=== PATIENT | female | born 1955 | race Caucasian/White ===

== ENCOUNTER 2016-07-30 13:54 | Outpatient (RCR) | payer BC ==
--- OUTSIDE RECORDS SUMMARY | 2016-06-27 11:06 | XMS REPORT | Continuity of Care Document ---
Author Author [facility] Organization [facility] Address Unknown Phone Unavailable Care Team Providers Care Yarder Puncher Name Role Phone Alexandra Macdonald PCP [phone] Source Comments Some departments are not documenting in the electronic medical record. If you do not see the information that you expected, contact Release of Information in the Health Information Management department at [phone] for further assistance in locating additional records.[facility] Active Allergies and Adverse Reactions No Known Allergies Current Medications Prescription Sig. Disp. Refills Start End Date Status Date Levocetirizine (XYZAL) 5 Take 5 mg by mouth at Active mg tab bedtime daily. simvastatin (ZOCOR) 20 mg Take 20 mg by mouth at Active tablet bedtime daily. HYDROcodone/acetaminophen Take 1-2 Tabs by mouth 40 Tab 0 03/28/20 Active (NORCO) 5-325 mg tablet every 4 hours as needed 16 for Pain Active Problems Problem Noted Date Ductal carcinoma in situ (DCIS) of left breast 02/09/2016 Overview: DIAGNOSIS: Left grade 3 DCIS (ER95%, PR60%) at 4:00, dx 01/2016 HISTORY: Ms. Hdez is a female who presented to [facility] on 02/12/2016 at age 60 for evaluation of left breast cancer. She had no complaints prior to her screening mammogram. Left stereotactic biopsy 02/01/16 ([facility]) revealed grade 3 ductal carcinoma in situ. Ms. Hdez underwent left RSL lumpectomy on 03/28/16. Final pathology revealed grade 3 DCIS; all margins greater than 1.5 cm. BREAST IMAGING: Mammogram: -- Bilateral screening mammogram 07/18/15 ([facility]) revealed heterogeneously dense breast tissue. In the far lateral aspect of the left breast, 10 cm FTN there was a group of pleomorphic calcifications. Left diagnostic mammogram recommended. -- Left diagnostic mammogram 07/31/15 ([facility]) revealed a slightly heterogeneous cluster of calcifications. 6 month follow up mammogram was recommended. -- Left diagnostic mammogram 01/29/16 ([facility]) revealed the calcifications in the posterior left breast had slightly increased. Stereotactic biopsy was recommended. -- Bilateral diagnostic mammogram 02/12/16 ([facility]) revealed 2 areas of residual calcifications anterior to the known area of DCIS. One group was seen 2.4 cm lateral and slightly anterior to the biopsy clip. The second group of calcification was also seen 3.2 cm anteromedially from the biopsy clip. The total extent of the groups of microcalcifications on the prebiopsy images was approximately 4.1 cm transverse x 2.0 cm AP. These additional areas of calcification were suspicious for residual malignancy. An MRI was recommended to evaluate for extent of disease, including contiguous noncalcified DCIS. If present, additional biopsy may not be necessary. If MRI was not performed, or did not show contiguous disease, then a stereotactic biopsy of one of these additional areas of calcifications was recommended to evaluate for multifocal disease. Ultrasound: -- Targeted left breast ultrasound 02/12/16 ([facility]) revealed at 3:30-4:00, 8 cm FTN, revealed a post biopsy hematoma/seroma measuring approximately 4.6 x 0.6 x 2.7 cm. A clip was seen within this collection. No suspicious masses were apparent. Axilla showed no adenopathy. REPRODUCTIVE HEALTH: Age at first Menarche: 15 Age at First Live : 28 Age at Menopause: 54, no HRT : 3 Para: 3 : None PROCEDURE: Left RSL lumpectomy, 03/28/16 PERTINENT PMH: HLD FAMILY HISTORY: No family history of breast or ovarian cancer PHYSICAL EXAM on PRESENTATION: Right - No palpable breast masses. No skin, nipple, or areolar change. Left - Large hematoma at 4:00 with bruising. No supraclavicular or axillary adenopathy. MEDICAL ONCOLOGY: Dr. Walker REFERRED BY: Self Most Recent Encounters Date Type Specialty Providers Description 04/03/2016 Office Visit Oncology Rosa Dumont DO Ductal carcinoma in situ (DCIS) of left breast (Primary Dx) 04/03/2016 Telephone Oncology Rosa Dumont DO Referral 03/28/2016 [facility] Radiology Rosa Dumont DO Encounter 03/28/2016 Surgery Anesthesiology Rosa Dumont DO Left Bracketed Radioactive Seed Localized Lumpectomy 03/27/2016 [facility] Radiology Rosa Dumont DO Encounter 03/27/2016 Anesthesia Anesthesiology Daryl Hickey MD Event Immunizations Name Dates Previously Given Next Due Flu Vaccine=>3 YO 06/22/2015 (Historical) Social History Tobacco Use Types Packs/Day Years Used Date Never Smoker Smokeless Tobacco: Never Used Alcohol Use Drinks/Week oz/Week Comments No Last Filed Vital Signs Vital Sign Reading Time Taken Blood Pressure 114/69 04/03/2016 12:53 PM CDT Pulse 64 04/03/2016 12:53 PM CDT Temperature 36.8 C (98.2 F) 04/03/2016 12:53 PM CDT Respiratory Rate 16 04/03/2016 12:53 PM CDT Height 1.702 m (5' 7.01") 04/03/2016 12:53 PM CDT Weight 64.411 kg (142 lb) 04/03/2016 12:53 PM CDT Body Mass Index 22.24 04/03/2016 12:53 PM CDT Oxygen Saturation 99% 04/03/2016 12:53 PM CDT Plan of Care Date Type Specialty Providers Description 10/14/2016 Appointment Radiology Rosa Dumont DO [address] [place] [address] [phone] (Fax) 10/14/2016 Appointment Breast Clinic / Breast Rosa Dumont DO Center [address] [place] [address] [phone] (Fax) Health Maintenance Due Date Last Done Comments Hepatitis C Screening 1955 Physical (Comprehensive) 1964 Exam Pertussis Vaccine 1968 Tetanus Vaccine 1974 Cervical Cancer Screening 1978 Colorectal Cancer 2007 Screening Influenza Vaccine 05/23/2016 06/22/2015 Breast Cancer Screening 02/11/2018 02/12/2016 Procedures from Last 3 Months Procedure Name Priority Date/Time Associated Diagnosis Comments PROCEDURES-SCAN 04/09/2016 Results for this 12:45 PM CDT procedure are in the results section. PROCEDURES-SCAN 03/29/2016 Results for this 9:01 AM CDT procedure are in the results section. Left Bracketed 03/28/2016 Ductal carcinoma in situ Radioactive Seed 7:30 AM CDT of left breast Localized Lumpectomy Results from Last 3 Months PROCEDURES-SCAN (04/09/2016 12:45 PM) Narrative Ordered by an unspecified provider. TUMOR PROGNOSTIC MARKERS SCAN (04/05/2016 4:19 PM) Narrative Ordered by an unspecified provider. PROCEDURES-SCAN (03/29/2016 9:01 AM) Narrative Ordered by an unspecified provider. BREAST SPEC PATH ONLY/NO RAD READ (03/28/2016 9:00 AM) Narrative This order has been auto finalized and does not contain a result. SURGICAL PATHOLOGY (03/28/2016 7:57 AM) Component Value Range PATHOLOGY REPORT [facility] [email or web address] Reji Wilkinson MD, PhD, Director Anatomic Pathology Department of Pathology and Laboratory Medicine [address] [place] [id number] Surgical Pathology Office: [phone] SURGICAL PATHOLOGY REPORT NAME: ANITHA HDEZ SURG PATH #: [id number] MR #: [id number] SPECIMEN CLASS: SR BILLING #: [id number] ALT ID #: LOCATION: [facility] DATE OF PROCEDURE: 03/28/2016 AGE: 60 SEX: F DATE RECEIVED: 03/28/2016 : 1955 TIME RECEIVED: 07:57 PHYSICIAN: ROSA DUMONT DO DATE OF REPORT: 04/01/2016 COPY TO: DATE OF PRINTIN04/01/2016 ################################################## ###################### Final Diagnosis: A. Breast tissue, "left breast lumpectomy, short stitch superior, long stitch lateral", excisional biopsy: Multifocal ductal carcinoma in situ, intermediate and high grade, cribriform, solid, micropapillary and Comedo types. Changes consistent with previous biopsy site. See comment. B. Breast tissue, "left breast additional lateral margin, clips dorian the true margin", biopsy: No diagnostic abnormalities. There is no evidence of malignancy. C. Breast tissue, "left breast additional superior margin, clips dorian the true margin", biopsy: No diagnostic abnormalities. There is no evidence of malignancy. D. Breast tissue, "left breast additional medial margin, clips dorian the true margin", biopsy: No diagnostic abnormalities. There is no evidence of malignancy. E. Breast tissue, " left breast additional inferior margin, clips dorian the true margin", biopsy: No diagnostic abnormalities. There is no evidence of malignancy. F. Breast tissue, "left breast additional posterior margin, clips dorian the true margin", biopsy: No diagnostic abnormalities. There is no evidence of malignancy. G. Breast tissue, "left breast additional anterior margin, clips dorian the true margin", biopsy: No diagnostic abnormalities. There is no evidence of malignancy. Comment: DCIS OF THE BREAST Breast: Left Tumor location: 3:30 position per radiology report Indication for surgery: Biopsy proven DCIS Type of surgery: Lumpectomy Microcalcifications identified: Yes Tumor multifocality: Yes Tumor multicentricity: No Tumor size or extent: Several foci, the largest of which measures approximately 1.2 cm in largest diameter Histologic pattern: Cribriform, solid, micropapillary and Comedo types Nuclear grade: 3 Necrosis: Present Margin status (main specimen): Please indicate the distance Although the tumor is within 1mm from the resection margins of the main lumpectomy specimens, ALL final resection margins are free of DCIS with more than 1.5 cm clearance Lymph node status: N/A Prognostic markers ordered: Yes. See Tumor Prognostic Marker addendum in Results Review. Time between tumor removal and placement into formalin < 1 hour: Yes Fixation time between 6-72 hours: Yes Pathologic TNM: pTis Nx M(N/A) TNM Descriptors Primary Tumor (Invasive Carcinoma) (pT) pTis (DCIS): Ductal carcinoma in situ Regional Lymph Nodes (pN) pNX: Regional lymph nodes cannot be assessed (eg, previously removed, or not removed for pathologic study) Distant Metastasis (M) Not applicable The pathologic stage assigned here should be regarded as provisional, as it reflects only current pathologic data and does not incorporate full knowledge of the patient's clinical status and/or prior pathology. Attestation: By this signature, I attest that I have personally formulated the final interpretation expressed in this report and that the above diagnosis is based upon my examination of the slides and/or other material indicated in this report. +++Electronically Signed Out By+++ ksw/03/28/2016 Interpreted by: Reji Wilkinson MD PhD, Attending Physician 04/01/2016 ################################################## ###################### Material Received: A: left breast lumpectomy, short stitch superior, long stitch lateral B: left breast additional lateral margin, clips dorian the true margin C: left breast additional superior margin, clips dorian the true margin D: left breast additional medial margin, clips dorian the true margin E: left breast additional inferior margin, clips dorian the true margin F: left breast additional posterior margin, clips dorian the true margin G: left breast additional anterior margin, clips dorian the true margin History: 60-year-old female with a history of DCIS. Gross Description: A. Fixative: Fresh Labeled: "Left breast lumpectomy short stitch superior long stitch lateral" Measurement: 7.5 x 4.2 x 2.1 cm The specimen is inked as follows: Inferior - Blue Anterior - Green Posterior - Black Lateral - [place] Medial - Yellow Superior - Red Sectioned from: Medial to lateral Total number of slices: Fourteen Radioactive Seed: Yes, in slice #2 Metallic Clip: Yes Mass measurement: There is a necrotic mass measuring 1.7 x 1.5 x 0.8 cm Mass location: Slices #11 and #12 The mass is: 1.5 cm from the deep margin 1.2 cm from the anterior margin 1.2 cm from the lateral margin 6.0 cm from the medial margin 1.0 cm from the superior margin 1.0 cm from the inferior margin Uninvolved breast parenchyma: Yellow and fatty Specimen radiograph taken: Yes Specimen sent to the Biospecimen Repository Core Facility: No The entire specimen is submitted as follows: A1 Slice #1 (perpendicular medial margin). A2 Slice #2. A3 Slice #3. A4-A5 Slice #4. A6-A7 Slice #5. A8-A9 Slice #6. A10-11 Slice #7. A12-14 Slice #8. A15-A17 Slice #9. A18-A20 Slice #10. A21-A22 Slice #11. A23-A24 Slice #12. A25 Slice #13. A26 Slice #14 (perpendicular lateral margin). The breast is removed from the patient at 7:52 AM, placed in formalin at 8:52 AM and not removed from formalin until 8:15 PM on March 28, 2016. (brm) B. Received in formalin, labeled with the patient's name and "left breast additional lateral margin, clip carroll true margin" is an irregular, oriented, schuster-yellow portion of fibroadipose tissue measuring 7.9 x 7.5 x 1.2. The specimen is oriented with a metallic clip designating the true margin. The clip is removed and the true margin is inked black. The opposite side is inked blue. The specimen is serially sectioned to reveal a schuster-yellow lobular cut surface. The specimen is submitted entirely in cassettes B1-B21. (brm) C. Received in formalin, labeled with the patient's name and "left breast additional superior margin, clip carroll true margin" is an irregular, oriented, schuster-yellow portion of fibroadipose tissue measuring 2.5 x 2.5 x 1.2. The specimen is oriented with a metallic clip designating the true margin. The clip is removed and the true margin is inked black. The opposite side is inked blue. The specimen is serially sectioned to reveal a schuster-yellow lobular cut surface. The specimen is submitted entirely in cassettes C1-C4. (brm) D. Received in formalin, labeled with the patient's name and "left breast additional medial margin, clip carroll true margin" is an irregular, oriented, schuster-yellow portion of fibroadipose tissue measuring 4.5 x 2.1 x 1.2. The specimen is oriented with a metallic clip designating the true margin. The clip is removed and the true margin is inked black. The opposite side is inked blue. The specimen is serially sectioned to reveal a schuster-yellow lobular cut surface. The specimen is submitted entirely in cassettes D1-D4. (brm) E. Received in formalin, labeled with the patient's name and "left breast additional inferior margin, clip carroll true margin" is an irregular, oriented, schuster-yellow portion of fibroadipose tissue measuring 5.1 x 3.2 x 1.2. The specimen is oriented with a metallic clip designating the true margin. The clip is removed and the true margin is inked black. The opposite side is inked blue. The specimen is serially sectioned to reveal a schuster-yellow lobular cut surface. The specimen is submitted entirely in cassettes E1-E7. (br) F. Received in formalin, labeled with the patient's name and "left breast additional posterior margin, clip carroll true margin" is an irregular, oriented, schuster-yellow portion of fibroadipose tissue measuring 3.1 x 1.5 x 1.2. The specimen is oriented with a metallic clip designating the true margin. The clip is removed and the true margin is inked black. The opposite side is inked blue. The specimen is serially sectioned to reveal a schuster-yellow lobular cut surface. The specimen is submitted entirely in cassettes F1-F3. (br) G. Received in formalin, labeled with the patient's name and "left breast additional anterior margin, clip carroll true margin" is an irregular, oriented, schuster-yellow portion of fibroadipose tissue measuring 4.1 x 4.0 x 1.5. The specimen is oriented with a metallic clip designating the true margin. The clip is removed and the true margin is inked black. The opposite side is inked blue. The specimen is serially sectioned to reveal a schuster-yellow lobular cut surface. The specimen is submitted entirely in cassettes G1-G6. (br) ksw/03/28/2016 MAMMO GUIDE SEED LOC 1ST LT (03/27/2016 4:21 PM) Impressions RECOMMENDATION: Follow-up with your physician. Narrative [id number] MAMMO GUIDE SEED LOC 1ST LT: LEFT BREAST - MARCH 27, 2016 - Technologists: Dom Latif; Lennox Diaz Prior study comparison: February 15, 2016, bilateral [id number] MRI BREAST BILAT w/O W CONTRAST performed at [facility] In.February 12, 2016, bilateral [id number] MAMMO DIAGNOSTIC KUN/TIEN performed at [facility] [place]. 60-year-old female with known left breast malignancy. Bracketed radioactive seed localization was requested. Of note, the patient had a large hematoma at the biopsy site on prior postprocedure mammograms and breast MRI. Calcifications and abnormal enhancement were seen at the margins of the biopsy cavity. The hematoma has largely resolved and therefore prior breast MRI and prior mammograms were utilized to approximate appropriate radioactive seed bracketing position. Technique: The procedure was performed by Dr. Keaton Kumar with direct supervision by myself. Informed consent was obtained. Using sterile procedure, local anesthetic, and mammographic guidance, an 18 gauge, 7cm needle containing a 0.212 mCi I-125 radioactive seed (reference date: 01/31/2016) was introduced into the breast from a lateral approach and the seed was deployed at the anterior, inferior, medial margin. Using sterile procedure, local anesthetic, and mammographic guidance, an 18 gauge, 5cm needle containing a 0.206 mCi I-125 radioactive seed (reference date: 03/06/2016) was introduced into the breast from a lateral approach and the seed was deployed at the posterior, superior, lateral margin. There were no complications. Lateral and CC views demonstrate a radioactive seed marking the anterior, inferior, medial margin and a second seed marking the posterior, superior, lateral margin. Impression: Number of seeds: 2 (bracketed) Anterior, inferior, medial seed: Reference date 01/31/2016, total activity 0.212 mCi Posterior, superior, lateral seed: Reference date 03/06/2016, total activity 0.206 mCi Finalized by Cade Zelaya M.D. on 03/27/2016 4:38 PM. Dictated by Cade Zelaya M.D. on 03/27/2016 4:29 PM. PATHOLOGY RESULTS: MALIGNANT Pathologist: Reji Wilkinson at [facility] Breast Imaging Malignant ductal carcinoma in situ. Final Diagnosis: A. Breast tissue, "left breast lumpectomy, short stitch superior, long stitch lateral", excisional biopsy: Multifocal ductal carcinoma in situ, intermediate and high grade, cribriform, solid, micropapillary and Comedo types. Changes consistent with previous biopsy site. See comment. B. Breast tissue, "left breast additional lateral margin, clips dorian the true margin", biopsy: No diagnostic abnormalities. There is no evidence of malignancy. C. Breast tissue, "left breast additional superior margin, clips dorian the true margin", biopsy: No diagnostic abnormalities. There is no evidence of malignancy. D. Breast tissue, "left breast additional medial margin, clips dorian the true margin", biopsy: No diagnostic abnormalities. There is no evidence of malignancy. E. Breast tissue, " left breast additional inferior margin, clips dorian the true margin", biopsy: No diagnostic abnormalities. There is no evidence of malignancy. F. Breast tissue, "left breast additional posterior margin, clips dorian the true margin", biopsy: No diagnostic abnormalities. There is no evidence of malignancy. G. Breast tissue, "left breast additional anterior margin, clips dorian the true margin", biopsy: No diagnostic abnormalities. There is no evidence of malignancy. Comment: DCIS OF THE BREAST Breast: Left Tumor location: 3:30 position per radiology report Indication for surgery: Biopsy proven DCIS Type of surgery: Lumpectomy Microcalcifications identified: Yes Tumor multifocality: Yes Tumor multicentricity: No Tumor size or extent: Several foci, the largest of which measures approximately 1.2 cm in largest diameter Histologic pattern: Cribriform, solid, micropapillary and Comedo types Nuclear grade: 3 Necrosis: Present Margin status (main specimen): Please indicate the distance Although the tumor is within 1mm from the resection margins of the main lumpectomy specimens, ALL final resection margins are free of DCIS with more than 1.5 cm clearance Lymph node status: N/A Prognostic markers ordered: Yes. See Tumor Prognostic Marker addendum in Results Review. Time between tumor removal and placement into formalin < 1 hour: Yes Fixation time between 6-72 hours: Yes Pathologic TNM: pTis Nx M(N/A) TNM Descriptors Primary Tumor (Invasive Carcinoma) (pT) pTis (DCIS): Ductal carcinoma in situ Regional Lymph Nodes (pN) pNX: Regional lymph nodes cannot be assessed (eg, previously removed, or not removed for pathologic study) Distant Metastasis (M) Not applicable The pathologic stage assigned here should be regarded as provisional, as it reflects only current pathologic data and does not incorporate full knowledge of the patient's clinical status and/or prior pathology. Attestation: By this signature, I attest that I have personally formulated the final interpretation expressed in this report and that the above diagnosis is based upon my examination of the slides and/or other material indicated in this report. +++Electronically Signed Out By+++ wilfredow/03/28/2016 Interpreted by: Reji Wilkinson MD PhD, Attending Physician 04/01/2016 Electronically signed and approved by: Cade Zelaya M.D. [id number] Procedure Note Interface, Radiant Results - FriApr 03, 2016 1:48 PM CDT [id number] MAMMO GUIDE SEED LOC 1ST LT: LEFT BREAST - MARCH 27, 2016 - Technologists: Dom Latif; Lennox Diaz Prior study comparison: February 15, 2016, bilateral [id number] MRI BREAST BILAT w/O W CONTRAST performed at [facility] In. February 12, 2016, bilateral [id number] MAMMO DIAGNOSTIC KUN/TIEN performed at [facility] [place]. 60-year-old female with known left breast malignancy. Bracketed radioactive seed localization was requested. Of note, the patient had a large hematoma at the biopsy site on prior postprocedure mammograms and breast MRI. Calcifications and abnormal enhancement were seen at the margins of the biopsy cavity. The hematoma has largely resolved and therefore prior breast MRI and prior mammograms were utilized to approximate appropriate radioactive seed bracketing position. Technique: The procedure was performed by Dr. Keaton Kumar with direct supervision by myself. Informed consent was obtained. Using sterile procedure, local anesthetic, and mammographic guidance, an 18 gauge, 7cm needle containing a 0.212 mCi I-125 radioactive seed (reference date: 01/31/2016) was introduced into the breast from a lateral approach and the seed was deployed at the anterior, inferior, medial margin. Using sterile procedure, local anesthetic, and mammographic guidance, an 18 gauge, 5cm needle containing a 0.206 mCi I-125 radioactive seed (reference date: 03/06/2016) was introduced into the breast from a lateral approach and the seed was deployed at the posterior, superior, lateral margin. There were no complications. Lateral and CC views demonstrate a radioactive seed marking the anterior, inferior, medial margin and a second seed marking the posterior, superior, lateral margin. Impression: Number of seeds: 2 (bracketed) Anterior, inferior, medial seed: Reference date 01/31/2016, total activity 0.212 mCi Posterior, superior, lateral seed: Reference date 03/06/2016, total activity 0.206 mCi Finalized by Cade Zelaya M.D. on 03/27/2016 4:38 PM. Dictated by Cade Zelaya M.D. on 03/27/2016 4:29 PM. PATHOLOGY RESULTS: MALIGNANT Pathologist: Reji Wilkinson at [facility] Breast Imaging Malignant ductal carcinoma in situ. Final Diagnosis: A. Breast tissue, "left breast lumpectomy, short stitch superior, long stitch lateral", excisional biopsy: Multifocal ductal carcinoma in situ, intermediate and high grade, cribriform, solid, micropapillary and Comedo types. Changes consistent with previous biopsy site. See comment. B. Breast tissue, "left breast additional lateral margin, clips dorian the true margin", biopsy: No diagnostic abnormalities. There is no evidence of malignancy. C. Breast tissue, "left breast additional superior margin, clips dorian the true margin", biopsy: No diagnostic abnormalities. There is no evidence of malignancy. D. Breast tissue, "left breast additional medial margin, clips dorian the true margin", biopsy: No diagnostic abnormalities. There is no evidence of malignancy. E. Breast tissue, " left breast additional inferior margin, clips dorian the true margin", biopsy: No diagnostic abnormalities. There is no evidence of malignancy. F. Breast tissue, "left breast additional posterior margin, clips dorian the true margin", biopsy: No diagnostic abnormalities. There is no evidence of malignancy. G. Breast tissue, "left breast additional anterior margin, clips dorian the true margin", biopsy: No diagnostic abnormalities. There is no evidence of malignancy. Comment: DCIS OF THE BREAST Breast: Left Tumor location: 3:30 position per radiology report Indication for surgery: Biopsy proven DCIS Type of surgery: Lumpectomy Microcalcifications identified: Yes Tumor multifocality: Yes Tumor multicentricity: No Tumor size or extent: Several foci, the largest of which measures approximately 1.2 cm in largest diameter Histologic pattern: Cribriform, solid, micropapillary and Comedo types Nuclear grade: 3 Necrosis: Present Margin status (main specimen): Please indicate the distance Although the tumor is within 1mm from the resection margins of the main lumpectomy specimens, ALL final resection margins are free of DCIS with more than 1.5 cm clearance Lymph node status: N/A Prognostic markers ordered: Yes. See Tumor Prognostic Marker addendum in Results Review. Time between tumor removal and placement into formalin < 1 hour: Yes Fixation time between 6-72 hours: Yes Pathologic TNM: pTis Nx M(N/A) TNM Descriptors Primary Tumor (Invasive Carcinoma) (pT) pTis (DCIS): Ductal carcinoma in situ Regional Lymph Nodes (pN) pNX: Regional lymph nodes cannot be assessed (eg, previously removed, or not removed for pathologic study) Distant Metastasis (M) Not applicable The pathologic stage assigned here should be regarded as provisional, as it reflects only current pathologic data and does not incorporate full knowledge of the patient's clinical status and/or prior pathology. Attestation: By this signature, I attest that I have personally formulated the final interpretation expressed in this report and that the above diagnosis is based upon my examination of the slides and/or other material indicated in this report. +++Electronically Signed Out By+++ ksw/03/28/2016 Interpreted by: Reji Wilkinson MD PhD, Attending Physician 04/01/2016 Electronically signed and approved by: Cade Zelaya M.D. [id number] IMPRESSION RECOMMENDATION: Follow-up with your physician.
[2016-07-30 14:11] LABS: BASOPHILS % (AUTO) 0 % (0-10); EOSINOPHILS # (AUTO) 0.1 10^3/uL (0.0-0.3); EOSINOPHILS % (AUTO) 1 % (0-10); LYMPHOCYTES # (AUTO) 1.3 X 10^3 (1.0-4.0); LYMPHOCYTES % (AUTO) 24 % (12-44); MEAN CORPUSCULAR HEMOGLOBIN 30 PG (25-34); MEAN CORPUSCULAR HGB CONC 33 G/DL (32-36); MEAN CORPUSCULAR VOLUME 90 FL (80-99); MEAN PLATELET VOLUME 11.3 FL (7.4-10.4); MONOCYTES # (AUTO) 0.5 X 10^3 (0.0-1.0); MONOCYTES % (AUTO) 9 % (0-12); NEUTROPHILS # (AUTO) 3.4 X 10^3 (1.8-7.8); NEUTROPHILS % (AUTO) 65 % (42-75); PLATELET COUNT 199 10^3/uL (130-400); RED BLOOD COUNT 4.49 10^6/uL (4.35-5.85); RED CELL DISTRIBUTION WIDTH 13.5 % (10.0-14.5); WHITE BLOOD COUNT 5.2 10^3/uL (4.3-11.0)
[2016-07-30 15:00] LABS: ALANINE AMINOTRANSFERASE 20 U/L (0-55); ALBUMIN 4.3 G/DL (3.2-4.5); ANION GAP 11 MMOL/L (5-14); ASPARTATE AMINO TRANSFERASE 18 U/L (5-34); BILIRUBIN,TOTAL 0.5 MG/DL (0.1-1.0); BLOOD UREA NITROGEN 14 MG/DL (7-18); BUN/CREATININE RATIO 20; CALCIUM 9.9 MG/DL (8.5-10.1); CARBON DIOXIDE 24 MMOL/L (21-32); CHLORIDE 107 MMOL/L (98-107); GFR ESTIMATED > 60; GLUCOSE 86 MG/DL (70-105); POTASSIUM 4.3 MMOL/L (3.6-5.0); SODIUM 142 MMOL/L (135-145); TOTAL PROTEIN 6.9 G/DL (6.4-8.2)
== END 2016-09-25 | disposition home or self-care (01) ==
LOC: ONC 13:54
PROVIDERS: ATTEND Internal Medicine Hematology & Oncology
DX: D05.12 Intraductal carcinoma in situ of left breast (principal); E78.5 Hyperlipidemia, unspecified; K21.9 Gastro-esophageal reflux disease without esophagitis; Z79.810 Long term (current) use of selective estrogen receptor modulators (SERMs); Z79.899 Other long term (current) drug therapy
CPT/HCPCS: 36415; 80053; 85025; 99213; 99214

== ENCOUNTER 2017-01-23 12:44 | Outpatient (RCR) | payer BC ==
[2017-01-23 13:08] LABS: BASOPHILS % (AUTO) 1 % (0-10); EOSINOPHILS # (AUTO) 0.1 10^3/uL (0.0-0.3); EOSINOPHILS % (AUTO) 2 % (0-10); LYMPHOCYTES # (AUTO) 1.6 X 10^3 (1.0-4.0); LYMPHOCYTES % (AUTO) 27 % (12-44); MEAN CORPUSCULAR HEMOGLOBIN 30 PG (25-34); MEAN CORPUSCULAR HGB CONC 33 G/DL (32-36); MEAN CORPUSCULAR VOLUME 92 FL (80-99); MONOCYTES # (AUTO) 0.6 X 10^3 (0.0-1.0); MONOCYTES % (AUTO) 10 % (0-12); NEUTROPHILS # (AUTO) 3.6 X 10^3 (1.8-7.8); NEUTROPHILS % (AUTO) 60 % (42-75); PLATELET COUNT 208 10^3/uL (130-400); RED BLOOD COUNT 4.25 10^6/uL (4.35-5.85); RED CELL DISTRIBUTION WIDTH 13.6 % (10.0-14.5)
[2017-01-23 13:47] LABS: ALANINE AMINOTRANSFERASE 17 U/L (0-55); ALBUMIN 4.1 G/DL (3.2-4.5); ANION GAP 5 MMOL/L (5-14); ASPARTATE AMINO TRANSFERASE 19 U/L (5-34); BILIRUBIN,TOTAL 0.4 MG/DL (0.1-1.0); BLOOD UREA NITROGEN 16 MG/DL (7-18); BUN/CREATININE RATIO 22; CALCIUM 10.4 MG/DL (8.5-10.1); CARBON DIOXIDE 30 MMOL/L (21-32); CHLORIDE 106 MMOL/L (98-107); CREATININE SERUM 0.72 MG/DL (0.60-1.30); GFR ESTIMATED > 60; GLUCOSE 79 MG/DL (70-105); POTASSIUM 4.6 MMOL/L (3.6-5.0); SODIUM 141 MMOL/L (135-145); TOTAL PROTEIN 6.7 G/DL (6.4-8.2)
== END 2017-04-23 | disposition home or self-care (01) ==
LOC: ONC 12:44
PROVIDERS: ATTEND Internal Medicine Hematology & Oncology
DX: D05.12 Intraductal carcinoma in situ of left breast (principal); E78.5 Hyperlipidemia, unspecified; K21.9 Gastro-esophageal reflux disease without esophagitis; Z79.810 Long term (current) use of selective estrogen receptor modulators (SERMs); Z79.899 Other long term (current) drug therapy
CPT/HCPCS: 36415; 80053; 85025; 99213

== ENCOUNTER 2017-08-26 10:57 | Outpatient (RCR) | payer BC ==
[2017-08-26 11:08] LABS: BASOPHILS % (AUTO) 1 % (0-10); EOSINOPHILS # (AUTO) 0.1 10^3/uL (0.0-0.3); EOSINOPHILS % (AUTO) 1 % (0-10); HEMATOCRIT 41 % (35-52); HEMOGLOBIN 13.3 G/DL (11.5-16.0); LYMPHOCYTES # (AUTO) 1.8 X 10^3 (1.0-4.0); LYMPHOCYTES % (AUTO) 24 % (12-44); MEAN CORPUSCULAR HEMOGLOBIN 30 PG (25-34); MEAN CORPUSCULAR HGB CONC 32 G/DL (32-36); MEAN CORPUSCULAR VOLUME 92 FL (80-99); MEAN PLATELET VOLUME 10.8 FL (7.4-10.4); MONOCYTES # (AUTO) 0.6 X 10^3 (0.0-1.0); MONOCYTES % (AUTO) 8 % (0-12); NEUTROPHILS % (AUTO) 66 % (42-75); PLATELET COUNT 241 10^3/uL (130-400); RED CELL DISTRIBUTION WIDTH 13.5 % (10.0-14.5); WHITE BLOOD COUNT 7.5 10^3/uL (4.3-11.0)
[2017-08-26 11:28] LABS: ALANINE AMINOTRANSFERASE 25 U/L (0-55); ALBUMIN 4.1 GM/DL (3.2-4.5); ALKALINE PHOSPHATASE 49 U/L (40-136); BILIRUBIN,TOTAL 0.6 MG/DL (0.1-1.0); BUN/CREATININE RATIO 27; CALCIUM 10.6 MG/DL (8.5-10.1); CARBON DIOXIDE 29 MMOL/L (21-32); CHLORIDE 104 MMOL/L (98-107); CREATININE SERUM 0.74 MG/DL (0.60-1.30); GFR ESTIMATED > 60; GLUCOSE 96 MG/DL (70-105); POTASSIUM 3.9 MMOL/L (3.6-5.0); SODIUM 141 MMOL/L (135-145); TOTAL PROTEIN 7.4 GM/DL (6.4-8.2)
== END 2017-11-24 | disposition home or self-care (01) ==
LOC: ONC 10:57
PROVIDERS: ATTEND Internal Medicine Hematology & Oncology
DX: D05.12 Intraductal carcinoma in situ of left breast (principal); E78.5 Hyperlipidemia, unspecified; K21.9 Gastro-esophageal reflux disease without esophagitis; Z79.810 Long term (current) use of selective estrogen receptor modulators (SERMs); Z79.899 Other long term (current) drug therapy
CPT/HCPCS: 36415; 80053; 85025; 99213

== ENCOUNTER → 2017-11-13 | Outpatient (CLI) | payer BC ==
--- NOTE | 2017-11-13 15:47 | Diagnostic Imaging Report ---
INDICATION: Cough for two months. PA and lateral views of the chest are obtained. Heart size and pulmonary vascularity are within normal limits. There is slight atelectasis and/or scarring in the medial segment of the right middle lobe. Calcified granuloma seen in the left midlung with surgical clips noted in the left breast or chest wall. IMPRESSION: Right middle lobe atelectasis and/or scarring with granulomatous residua in the chest. Otherwise, there is no acute abnormality detected. Dictated by: Dictated on workstation # [id number]
== END ==
LOC: RAD 15:28
PROVIDERS: ATTEND Internal Medicine
DX: J98.11 Atelectasis (principal)
CPT/HCPCS: 71046

== ENCOUNTER 2017-11-18 09:50 | Outpatient (RCR) | payer BC ==
[2017-12-24] MEDS ORDERED: SIMV20TA3 PO (10:41)
[2017-12-24] MEDS ORDERED: TAMO20TA2 PO (10:41)
== END 2018-02-16 | disposition home or self-care (01) ==
LOC: CARD 09:50
PROVIDERS: ATTEND Internal Medicine
DX: R00.2 Palpitations (principal)
CPT/HCPCS: 93225; 93226

== ENCOUNTER → 2017-12-19 | Outpatient (CLI) | payer BC | LOC: PREOP 05:46 | PROVIDERS: ATTEND Internal Medicine | DX: Z01.818 Encounter for other preprocedural examination (principal); Z12.11 Encounter for screening for malignant neoplasm of colon ==

== ENCOUNTER → 2017-12-26 | Day surgery (SDC) | payer BC ==
--- NOTE | 2017-12-08 08:54 | HISTORY AND PHYSICAL ---
DATE OF SERVICE: COLONOSCOPY HISTORY AND PHYSICAL HISTORY OF PRESENT ILLNESS: The patient is a 62-year-old white female referred by Dr. Macdonald for screening colonoscopy. She is deemed to be a slightly higher than average risk as she has a history of lumpectomy in 2017 for what she describe as sounding like a left-sided carcinoma in situ. She is only on hormonal therapy in the form of tamoxifen and did not require radiation therapy. She denies any problem with bowel habit change, bright red blood per rectum or melena. Her weight has been stable. She has no past history of cardiovascular or pulmonary disease. PAST SURGICAL HISTORY: She has had 3 previous C-sections and then left breast lumpectomy in 2017. PAST MEDICAL HISTORY: She has history of hyperlipidemia only medicine other than tamoxifen and simvastatin. FAMILY HISTORY: Mother is living at the age of 93 with hypertension and hyperlipidemia. Father at age 94 of natural causes. SOCIAL HISTORY: She has no past smoking or drinking history is employed and with adult children. PHYSICAL EXAMINATION: GENERAL: Reveals a well appearing white female, in no acute distress. VITAL SIGNS: Blood pressure 110/72, heart rate 72 and regular, respiratory rate 16 and nonlabored. HEENT: Reveals a Mallampati class 1 oropharyngeal configuration. No pharyngeal exudate or erythema is noted. CHEST: Clear. CARDIOVASCULAR: Reveals a regular rate and rhythm without murmur, S3 or S4. ABDOMEN: Soft, supple without mass, organomegaly or tenderness. EXTREMITIES: Reveal no cyanosis, clubbing or edema. ASSESSMENT: The patient is set up for screening colonoscopy on the 12/26/2017. The patient was seen on 11/26/2017 in my office. Prep instructions with Suprep kit were given and questions were answered. I thank you for the referral of this pleasant lady. Sincerely, Job ID: [id number] DocumentID: [id number] Dictated Date: 11/28/2017 11:31:26 Tooling Engineer Date: 11/28/2017 12:17:18 Dictated By: AVTAR MAYO MD
[~2017-12-26] VITALS: Ht 167.6 cm; Wt 63.5 kg
[~2017-12-26] MED LIST: 1/2 NS IV SOLUTION 1,000 ML IV ONE; 1/2 NS IV SOLUTION 1,000 ML IV STA; LIDOCAINE JELLY 2% (XYLOCAINE) 5 ML TUBE MM PRN; MIDAZOLAM 2 MG/2 ML (VERSED) VIAL IVP PRN; ONDANSETRON 4 MG/2 ML (SDV) Z0FRAN ONE; SIMV20TA3 PO; TAMO20TA2 PO; fentaNYL INJECTION 100 MCG/2 ML AMP IVP PRN
--- OUTSIDE RECORDS SUMMARY | 2017-12-26 07:35 | XMS REPORT | Clinical Summary ---
Author Author [facility] Organization [facility] Address Unknown Phone Unavailable Care Team Providers Care Office Services Manager Name Role Phone Chintan Dumont DO Unavailable Outpatient, Radiologist Unavailable Unavailable Daryl Macdonald MD PCP Mychart, Generic Provider Unavailable Unavailable Yarelis Beckwith PA-C Unavailable Tavia Gupta MD Unavailable Candi Pollock RN Unavailable Unavailable Daryl Hickey MD Unavailable Joaquin Cooper CRNA Unavailable Source Comments Some departments are not documenting in the electronic medical record. If you do not see the information that you expected, contact Release of Information in the Health Information Management department at [phone] for further assistance in locating additional records.[facility] Allergies No Known Allergies Current Medications Prescription Sig. [...] 4 hours as needed 16 for Pain tamoxifen (NOLVADEX) 10 Take 20 mg by mouth Active mg tablet daily. Doses >20mg should be given in two divided doses. 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 Barriga is a female who presented to the [facility] on 02/12/2016 at age 60 for evaluation of left breast cancer. She had no complaints prior to her screening mammogram. Left stereotactic biopsy 02/01/16 ([facility]) revealed grade 3 ductal carcinoma in situ. Ms. Barriga underwent left RSL lumpectomy on 03/28/16. Final pathology revealed grade 3 DCIS; all margins greater than 1.5 cm. She finished radiation with Dr. Carson in [place], [place] on 06/18/16. BREAST IMAGING: Mammogram: -- Bilateral screening mammogram 07/18/15 ([facility]) revealed heterogeneously dense breast tissue. In the far lateral aspect of the left breast, 10 cm FTN there was a group of pleomorphic calcifications. Left diagnostic mammogram recommended. -- Left diagnostic mammogram 07/31/15 ([facility]) revealed a slightly heterogeneous cluster of calcifications. 6 month follow up mammogram was recommended. -- Left diagnostic mammogram 01/29/16 ([facility]) revealed the calcifications in the posterior left breast had slightly increased. Stereotactic biopsy was recommended. -- Bilateral diagnostic mammogram 02/12/16 () revealed 2 areas of residual calcifications anterior [...] Ultrasound: -- Targeted left breast ultrasound 02/12/16 () revealed at 3:30-4:00, 8 cm FTN, revealed [...] or axillary adenopathy. MEDICAL ONCOLOGY: Dr. Walker PRESENT THERAPY: Tamoxifen, started 06/2016 REFERRED BY: Self Encounters Date Type Specialty Care Team Description 12/19/2017 Hospital Radiology Chintan Dumont DO Arrived Encounter 12/19/2017 Office Visit Breast Clinic / Breast Chintan Dumont DO Ductal carcinoma in situ Center Yarelis Beckwith PA-C (DCIS) of left breast (Primary Dx); Screening mammogram, encounter for; Left breast mass 12/19/2017 Ancillary Breast Clinic / Breast Yarelis Beckwith PA-C Screening mammogram, Orders Center encounter for from Last 3 Months Immunizations Name Dates Previously Given Next Due Flu Vaccine=>3 YO 06/22/2015 (Historical) Family History Medical History Relation Name Comments High Cholesterol Father Diabetes Maternal Grandmother High Cholesterol Mother Cancer Paternal Uncle Relation Name Status Comments Father Maternal Grandmother Mother Paternal Uncle Social History Tobacco Use Types Packs/Day Years Used Date Never Smoker Smokeless Tobacco: Never Used Alcohol Use Drinks/Week oz/Week Comments No Sex Assigned at Date Recorded Not on file Last Filed Vital Signs Vital Sign Reading Time Taken Blood Pressure 111/67 12/19/2017 1:59 PM CDT Pulse 63 12/19/2017 1:59 PM CDT Temperature 36.3 C (97.4 F) 12/19/2017 1:59 PM CDT Respiratory Rate 16 12/19/2017 1:59 PM CDT Oxygen Saturation 100% 12/19/2017 1:59 PM CDT Inhaled Oxygen - - Concentration Weight 64 kg (141 lb) 12/19/2017 1:59 PM CDT Height 170.2 cm (5' 7") 12/19/2017 1:59 PM CDT Body Mass Index 22.08 12/19/2017 1:59 PM CDT Plan of Treatment Health Maintenance Due Date Last Done Comments HEPATITIS C SCREENING 1955 PHYSICAL (COMPREHENSIVE) 1964 EXAM PERTUSSIS VACCINE 1968 HIV SCREENING 1972 TETANUS VACCINE 1974 CERVICAL CANCER SCREENING 1987 COLORECTAL CANCER 2007 SCREENING SHINGLES VACCINE 2017 BREAST CANCER SCREENING 12/04/2017 12/04/2016, 02/12/2016 INFLUENZA VACCINE 06/22/2018 06/22/2015 Results Not on filefrom Last 3 Months
--- OUTSIDE RECORDS SUMMARY | 2017-12-26 07:35 | XMS REPORT | Encounter Summary ---
Author Author [facility] Organization [facility] Address Unknown Phone Unavailable Care Team Providers Care Licensed Staff Mft Name Role Phone Chintan Dumont DO Unavailable Outpatient, Radiologist Unavailable Unavailable Daryl Macdonald MD PCP Mychart, Generic Provider Unavailable Unavailable Yarelis Beckwith PA-C Unavailable Tavia Gupta MD Unavailable Candi Pollock RN Unavailable Unavailable Daryl Hickey MD Unavailable Joaquin Cooper CRNA Unavailable Encounter Details Date Type Department Care Team Description 12/19/2017 Ancillary [facility] at Yarelis Beckwith PA-C Screening mammogram, Orders [place] [address] [place] [address] [address] [place] [address] [place] [address] [place] [address] [phone] Social History Tobacco Use Types Packs/Day Years Used Date Never Smoker Smokeless Tobacco: Never Used Alcohol Use Drinks/Week oz/Week Comments No Sex Assigned at Date Recorded Not on file as of this encounter Plan of Treatment Name Priority Associated Diagnoses Date/Time MAMMO SCREEN BILAT/TIEN/CAD Routine Screening mammogram, 12/19/2017 3: 16 PM CDT encounter for Name Priority Associated Diagnoses Order Schedule MAMMO SCREEN BILAT/TIEN/CAD Routine Screening mammogram, Expected: 12/08 encounter for (Approximate), Expires: 06/10/2018 as of this encounter Visit Diagnoses Diagnosis Screening mammogram, encounter for
--- OUTSIDE RECORDS SUMMARY | 2017-12-26 07:35 | XMS REPORT | Continuity of Care Document ---
Author Author [facility] Address Unknown Phone Unavailable Care Team Providers Care Practice Consultant Name Role Phone [employer] Unavailable Unavailable Problems Medications Allergies, Adverse Reactions, Alerts Immunizations Results Vital Signs Encounters Location Location Details Encounter Type Encounter Number Reason For Visit Attending Provider ADM Date DC Date Status Source [place] SERIES [id number] ROSA FOFANA 12/04/2016 12/04/2016 Active [facility] CA SERIES [id number] GINA DELGADO 06/10/2017 06/10/2017 Active [facility] CA SERIES [id number] GINA DELGADO 12/19/2017 12/19/2017 Active [facility] OUTPATIENT [id number] ROSA FOFANA 12/19/2017 12/19/2017 Active [facility] O 01/02/2018 Active [facility] Procedures Plan of Care Social History Assessment and Plan Family History Advance Directives Functional Status
--- OUTSIDE RECORDS SUMMARY | 2017-12-26 07:36 | XMS REPORT ---
Author Author NOREEN BAUTISTA [facility] Address Unknown Care Team Providers Care National Sales Name Role Phone NOREEN BAUTISTA Unavailable PROBLEMS Type Condition ICD9-CM Code RAG71-EA Code Onset Dates Condition Status SNOMED Code Problem Acute sinusitis, unspecified 461.9 Active 12442574 Problem Actinic keratosis 702.0 Active 845540 Problem Cough 786.2 Active 64744086 Problem Need for prophylactic vaccination and inoculation, Influenza V04.81 Active 007883525 Problem Fever, unspecified 780.60 Active 421552011 Problem Other malaise and fatigue 780.79 Active 964138220 ALLERGIES No Known Allergies SOCIAL HISTORY Never Assessed PLAN OF CARE VITAL SIGNS MEDICATIONS Medication Instructions Dosage Frequency Start Date End Date Duration Status Simvastatin 10 MG Orally Once a day 1 tablet in the evening 24h Active Xyzal 5 MG Orally Once a day 1 tablet in the evening 24h Active RESULTS No Results PROCEDURES Procedure Date Ordered Result Body Site Dental no charge Nov 15, 2016 IMMUNIZATIONS No Known Immunizations MEDICAL (GENERAL) HISTORY Type Description Date Medical History Hyperlipidemia Medical History seasonal allergies Medical History cancer/radiation Surgical History Lumpectomy 03/28/16
--- OUTSIDE RECORDS SUMMARY | 2017-12-26 07:36 | XMS REPORT ---
Author Author NAVNEET GARCIA [facility] [employer] Address Unknown Phone Unavailable Care Team Providers Care Bb Shot Packer Name Role Phone NAVNEET GARCIA CP Unavailable Allergies, Adverse Reactions, Alerts Substance Reaction Event Type N.K.D.A. Info Not Available Non Drug Allergy Problems Problem Type Condition Code Onset Dates Condition Status Assessment Urinary tract infection N39.0 Active Problem Cough 786.2 Active Problem Other malaise and fatigue 780.79 Active Problem Need for prophylactic vaccination and inoculation, Influenza V04.81 Active Problem Acute sinusitis, unspecified 461.9 Active Assessment Dysuria R30.0 Active Problem Fever, unspecified 780.60 Active Problem Actinic keratosis 702.0 Active Medications Medication Code System Code Instructions Start Date End Date Status Dosage Xyzal [facility] [address]-86 5 MG Orally Once a day 1 tablet in the evening Pyridium [facility] [address]-39 200 MG Orally Three times a day Oct 19, 2015 Oct 21, 2015 1 tablet after meals Simvastatin [facility] [address]-57 10 MG Orally Once a day 1 tablet in the evening Cipro [facility] [address]-96 500 MG Orally Twice a day Oct 19, 2015 Oct 29, 2015 1 tablet Procedures Procedure Coding System Code Date URINE CULTURE/COLONY COUNT CPT-4 86454 Oct 19, 2015 Office Visit, Est Pt., Level 3 CPT-4 16282 Oct 19, 2015 Vital Signs Date/Time: Oct 19, 2015 Temperature 97.8 F Weight 146.6 lbs Height 66 in BMI 23.66 Index Blood Pressure Diastolic 80 mmHg Blood Pressure Systolic 132 mmHg Cardiac Monitoring Heart Rate 64 bpm Results Name Result Date Reference Range Unit Abnormality Flag UA LONG DIP (IN HOUSE) ----JUJU 3+ 20151019 ----NIT Positive 20151019 ----Exp date 20151019 ----Lot # [id number] ----SG 1.015 20151019 ----KET Negative 20151019 ----KUN Negative 20151019 ----GLU Negative 20151019 ----Odor Strong 20151019 ----pH 6.5 20151019 ----BLO Trace-intact 20151019 ----URO 0.2 20151019 ----Protein Negative 20151019 ----Lot # [id number] ----Exp date 20151019 ----Clarity Cloudy 20151019 ----Color Yellow 20151019 Summary Purpose [employer] Submission
--- OUTSIDE RECORDS SUMMARY | 2017-12-26 07:36 | XMS REPORT | Encounter Summary ---
Author Author [facility] Organization [facility] Address Unknown Phone Unavailable Care Team Providers Care Furnace Combustion Tester Name Role Phone Chintan Dumont DO Unavailable Outpatient, Radiologist Unavailable Unavailable Daryl Macdonald MD PCP Mychart, Generic Provider Unavailable Unavailable Yarelis Beckwith PA-C Unavailable Tavia Gupta MD Unavailable Candi Pollock RN Unavailable Unavailable Daryl Hickey MD Unavailable Joaquin Cooper CRNA Unavailable Reason for Visit * Reason Comments Heme/Onc Care Encounter Details Date Type Department Care Team Description 12/19/2017 Office Visit Breast Surgery Center at Chintan Dumont DO Ductal carcinoma in situ [place] [address] (DCIS) of left breast [address] [place] (Primary Dx); [address] [place] [address] Screening mammogram, [place] [address] encounter for; [phone] Left breast mass M Yarelis alexander PA-C [address] [place] [address] [phone] Social History Tobacco Use Types Packs/Day Years Used Date Never Smoker Smokeless Tobacco: Never Used Alcohol Use Drinks/Week oz/Week Comments No Sex Assigned at Date Recorded Not on file as of this encounter Last Filed Vital Signs Vital Sign Reading [...] Mass Index 22.08 12/19/2017 1:59 PM CDT in this encounter Progress Notes * Yarelis Beckwith PA-C - 12/19/2017 1:45 PM CDT Formatting of this note may be different from the original. Name: Alice Barriga : 1955 AGE: 62 y.o. DATE OF SERVICE: 12/19/2017 Cancer Staging Ductal carcinoma in situ (DCIS) of left breast Staging form: Breast, AJCC 7th Edition - Clinical: Stage 0 (Tis, N0, cM0) - Signed by Yarelis Beckwith PA-C on 2015 - Pathologic: Stage 0 (Tis, N0, cM0) - Signed by Yarelis Beckwith PA-C on 2015 DIAGNOSIS: Left grade 3 DCIS (ER95%, PR60%) at 4:00, dx 01/2016 History of Present Illness Ms. Barriga returns to the clinic for routine 1.5 year follow up. HISTORY: Ms. Barriga is a female who presented to the Breast Cancer Clinic on 02/12/2016 at age 60 for evaluation of left breast cancer. She had no complaints prior to her screening mammogram. Left stereotactic biopsy 09/06 ([facility]) revealed grade 3 ductal carcinoma in situ. Ms. Barriga underwent left RSL lumpectomy on 03/28/16. Final pathology revealed grade 3 DCIS; all margins greater than 1.5 cm. She finished radiation with Dr. Carson in [place], [place] on 06/18/16. BREAST IMAGING: Mammogram: -- Bilateral screening mammogram 07/18/15 ([facility]) revealed heterogeneously dense breast tissue. In the far lateral aspect of the left breast, 10 cm FTN there was a group of pleomorphic calcifications. Left diagnostic mammogram recommended. -- Left diagnostic mammogram 07/31/15 ([facility]) revealed a slightly heterogeneous cluster of calcifications. 6 month follow up mammogram was recommended. -- Left diagnostic mammogram 01/29/16 ([facility]) revealed the calcifications in the posterior [...] 02/12/16 ([facility]) revealed at 3:30-4:00, 8 cm FTN , revealed a post biopsy hematoma/seroma measuring approximately [...] THERAPY: Tamoxifen, started 06/2016 REFERRED BY: Self Review of Systems Review of 13 systems negative except for: cough No Known Allergies The following medical/surgical/family/social history and the list of medications are current, as of 12/19/2017 Past Medical History: Diagnosis Date Ductal carcinoma in situ of left breast 2015 HLD (hyperlipidemia) PONV (postoperative nausea and vomiting) Seasonal allergies Past Surgical History: Procedure Laterality Date COLONOSCOPY 2008 [place] MASTECTOMY PARTIAL Left 03/28/2016 Left Bracketed Radioactive Seed Localized Lumpectomy performed by Chintan Dumont DO at [facility] MAIN OR/PERIOP SECTION 1984,1987,1991 Family History Problem Relation Age of Onset High Cholesterol Mother High Cholesterol Father Cancer Paternal Uncle Diabetes Maternal Grandmother Social History Social History Marital status: Spouse name: N/A Number of children: N/A Years of education: N/A Social History Main Topics Smoking status: Never Smoker Smokeless tobacco: Never Used Alcohol use No Drug use: No Sexual activity: Not on file Other Topics Concern Not on file Social History Narrative No narrative on file Objective: HYDROcodone/acetaminophen (NORCO) 5-325 mg tablet Take 1-2 Tabs by mouth every 4 hours as needed for Pain Levocetirizine (XYZAL) 5 mg tab Take 5 mg by mouth at bedtime daily. simvastatin (ZOCOR) 20 mg tablet Take 20 mg by mouth at bedtime daily. tamoxifen (NOLVADEX) 10 mg tablet Take 20 mg by mouth daily. Doses >20mg should be given in two divided doses. Vitals: 12/19/17 1359 BP: 111/67 Pulse: 63 Resp: 16 Temp: 36.3 C (97.4 F) TempSrc: Oral SpO2: 100% Weight: 64 kg (141 lb) Height: 170.2 cm (67") Body mass index is 22.08 kg/m. Pain Score: Zero Pain Addressed: N/A Patient Evaluated for a Clinical Trial: No treatment clinical trial available for this patient. Eastern Cooperative Oncology Group performance status is 0, Fully active, able to carry on all pre-disease performance without restriction.. Physical Exam Pulmonary/Chest: Vitals reviewed. RIGHT BREAST EXAM: Breast: No palpable masses Skin Erythema: No Attachment of Overlying Skin: No Peau d' orange: No Chest Wall Attachment: No Nipple Inversion: No Nipple Discharge: No LEFT BREAST EXAM: Breast: Exam consistent with lumpectomy. Palpable suture or clip superficial at the lumpectomy site Skin Erythema: No Attachment of Overlying Skin: No Peau d' orange: No Chest Wall Attachment: No Nipple Inversion: No Nipple Discharge: No RIGHT JHONATHAN BASIN EXAM: Axillary: negative Infraclavicular: negative Supraclavicular: negative LEFT JHONATHAN BASIN EXAM: Axillary: negative Infraclavicular: negative Supraclavicular: negative Constitutional: No acute distress. HEENT: Head: Normocephalic and atraumatic. Eyes: No discharge. No scleral icterus. Pulmonary/Chest: No respiratory distress. Neurological: Alert and oriented to person, place and time. No cranial nerve deficit. Skin: Warm and dry. No rash noted. No erythema. No pallor. Psychiatric: Normal mood and affect. Behavior is normal. Judgement and thought content normal. 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 Barriga reports she is doing well. She denies any changes in her medical or family history. She has no breast complaints. She continues on tamoxifen with Dr. Walker and is tolerating it without complaint. She is scheduled for bilateral screening mammogram today. We will call her with the results. She is coming up to in 2 weeks and we will order an ultrasound if needed pending the mammogram today. Ms. Barriga is to follow up in the [facility] clinic in 1 year with bilateral screening mammogram. She was given ample time to ask questions all of which were answered to her satisfaction. She was encouraged to call with any interval questions or concerns. This patient was evaluated and treated by Dr. Dumont. 1. Bilateral screening mammogram today 2. Left breast ultrasound in 2 weeks 3. Follow up in [facility] clinic in 1 year with bilateral screening mammogram Yarelis Beckwith PA-C in this encounter Plan of Treatment Name Priority Associated Diagnoses Order Schedule MAMMO SCREEN BILAT/TIEN/CAD Routine Screening mammogram, Expected: 12/19 encounter for (Approximate), Expires: 06/21/2019 US BREAST TARGET LT Routine Left breast mass Expected: 01/02/2018 (Approximate), Expires: 12/20/2018 as of this encounter Visit Diagnoses Diagnosis Ductal carcinoma in situ (DCIS) of left breast - Primary Screening mammogram, encounter for Left breast mass Lump or mass in breast
--- OUTSIDE RECORDS SUMMARY | 2017-12-26 07:36 | XMS REPORT | Encounter Summary ---
Author Author [facility] Organization [facility] Address Unknown Phone Unavailable Care Team Providers Care Incident Engineer Name Role Phone Chintan Dumont DO Unavailable Outpatient, Radiologist Unavailable Unavailable Daryl Macdonald MD PCP Mychart, Generic Provider Unavailable Unavailable Yarelis Beckwith PA-C Unavailable Tavia Gupta MD Unavailable Candi Pollock RN Unavailable Unavailable Daryl Hickey MD Unavailable Joaquin Cooper CRNA Unavailable Encounter Details Date Type Department Care Team Description 12/19/2017 Hospital [facility] Chintan Dumont DO Arrived Encounter [facility] [address] [place] [address] [place] [address] [phone] Social History Tobacco Use Types Packs/Day Years Used Date Never Smoker Smokeless Tobacco: Never Used Alcohol Use Drinks/Week oz/Week Comments No Sex Assigned at Date Recorded Not on file as of this encounter Medications at Time of Discharge Medication Sig. Disp. Refills Start Date End Date HYDROcodone/acetaminophen Take 1-2 Tabs by mouth 40 Tab 0 03/28/2016 (NORCO) 5-325 mg tablet every 4 hours as needed for Pain Levocetirizine (XYZAL) 5 Take 5 mg by mouth at mg tab bedtime daily. simvastatin (ZOCOR) 20 mg Take 20 mg by mouth at tablet bedtime daily. tamoxifen (NOLVADEX) 10 Take 20 mg by mouth mg tablet daily. Doses >20mg should be given in two divided doses. as of this encounter Plan of Treatment Name Priority Associated Diagnoses Date/Time MAMMO SCREEN BILAT/TIEN/CAD Routine Screening mammogram, 12/19/2017 3: 16 PM CDT encounter for Name Priority Associated Diagnoses Order Schedule MAMMO SCREEN BILAT/TIEN/CAD Routine Screening mammogram, 1 Occurrences starting encounter for 12/19/2017 until 12/19/2017 as of this encounter Visit Diagnoses Diagnosis Screening mammogram, encounter for
--- OUTSIDE RECORDS SUMMARY | 2017-12-26 07:36 | XMS REPORT ---
Author Author TAJ CONROY [facility] eClinicalWorks Address Unknown Phone Unavailable Care Team Providers Care Duty Engineer Name Role Phone TAJ CONROY CP Unavailable Allergies No Known Allergies Problems Problem Type Condition Code Onset Dates Condition Status Problem Cough 786.2 Active Problem Other malaise and fatigue 780.79 Active Problem Need for prophylactic vaccination and inoculation, Influenza V04.81 Active Problem Acute sinusitis, unspecified 461.9 Active Assessment Encounter for immunization Z23 Active Problem Fever, unspecified 780.60 Active Problem Actinic keratosis 702.0 Active Medications No Known Medications Procedures Procedure Coding System Code Date SINGLE IMMUNIZATION ADMIN CPT-4 72126 Jul 04, 2016 FLUARIX QUAD P-FREE 3 AND UP .50 2015 CPT-4 05284 Jul 04, 2016 Results No Known Results Immunizations Vaccine Administration Date FLUARIX QUAD P-FREE 3 AND UP .50 2015Jul 04, 2016 Summary Purpose eClinicalWorks Submission
--- OUTSIDE RECORDS SUMMARY | 2017-12-26 07:36 | XMS REPORT ---
Author Author NOREEN BAUTISTA [facility] Address Unknown Care Team Providers Care Acid Mixer Name Role Phone NOREEN BAUTITSA Unavailable PROBLEMS Type Condition ICD9-CM Code TYP10-XO Code Onset Dates Condition Status SNOMED Code Problem Acute sinusitis, unspecified 461.9 Active 16220682 Problem Actinic keratosis 702.0 Active 467453362 Problem Cough 786.2 Active 17537400 Problem Need for prophylactic vaccination and inoculation, Influenza V04.81 Active 512538498 Problem Fever, unspecified 780.60 Active 746241201 Problem Other malaise and fatigue 780.79 Active 045263402 ALLERGIES No Known Allergies ENCOUNTERS Encounter Location Date Diagnosis [facility] [address] [address] Jul, [facility] [address] [address] Jul, Pressure in chest R07.89 and Bronchitis J40 [facility] [address] [id number] [place] [address] Jul, Acute tonsillitis, unspecified etiology J03.90 [facility] [address] [address] Jun, Encounter for immunization Z23 [facility] [address] [id number] Feb, Dental examination Z01.20 [facility] [address] [address] Dec, Dental examination Z01.20 [facility] [address] [id number] Oct, Dental examination Z01.20 [facility] [id number] [place] [address] Oct, Dental examination Z01.20 [facility] [address] [address] Jun, Encounter for immunization Z23 [facility] [address] [address] Sep, Dysuria R30.0 and Urinary tract infection N39.0 [facility] [address] [address] Aug, Abscess L02.91 [place] [address] [address] Jul, Cough R05 [facility] [address] [address] Jul, Viral syndrome B34.9 and Seasonal allergies J30.2 [facility] [address] [address] Jun, Encounter for immunization Z23 [place] [address] [address] Apr, TDAP DX V06.1 [place] [address] [address] Dec, [facility] [id number] [place] [address] Dec, [facility] [id number] [place] [address] Nov, [facility] [address] [address] Nov, [facility] [address] [address] Sep, [facility] [address] [address] Sep, [facility] [address] [id number] [place] [address] Jun, [facility] [address] [id number] [place] [address] Jun, [facility] [address] [id number] [place] [address] January, [facility] [place] [facility] [address] [id number] [place] [address] January, [facility] [address] [id number] [place] [address] January, [facility] [address] [id number] [place] [address] January, [facility] [address] [id number] [place] [address] Dec, [facility] [address] [id number] [place] [address] Dec, [facility] [address] [id number] [place] [address] Jun, [facility] [address] [id number], [place] [address] Jun, [facility] [address] [id number] [place] [address] Nov, [facility] [address] [id number], [place] [address] Nov, [facility] [address] [id number] [id number] Jun, [facility] [place] [facility] [address] [id number] [place] [address] Jun, [facility] [place] [facility] [address] [id number] [place] [address] Jul, [facility] [place] [facility] [address] [id number], [place] [address] Jun, [facility] [address] [facility] [id number] [place] [address] Apr, IMMUNIZATIONS No Known Immunizations SOCIAL HISTORY Never Assessed REASON FOR VISIT re-eval PLAN OF CARE Activity Details Follow Up prn Reason:crown prep after endo #18 VITAL SIGNS MEDICATIONS Medication Instructions Dosage Frequency Start Date End Date Duration Status Simvastatin 10 MG Orally Once a day 1 tablet in the evening 24h Active Xyzal 5 MG Orally Once a day 1 tablet in the evening 24h Active RESULTS No Results PROCEDURES Procedure Date Ordered Result Body Site LTD ORAL EVALUATION - PROBLEM FOCUS February 28, 2017 Billing Notes on claim February 28, 2017 [facility] Employee/Board adjustment February 28, 2017 INSTRUCTIONS MEDICATIONS ADMINISTERED No Known Medications MEDICAL (GENERAL) HISTORY Type Description Date Medical History Hyperlipidemia Medical History seasonal allergies Medical History cancer/radiation Surgical History Lumpectomy 03/28/16
--- OUTSIDE RECORDS SUMMARY | 2017-12-26 07:36 | XMS REPORT ---
Author Author NAVNEET GARCIA [facility] eClinicalWorks Address Unknown Phone Unavailable Care Team Providers Care Firebrick Layer Helper Name Role Phone NAVNEET GARCIA CP Unavailable Allergies, Adverse Reactions, Alerts Substance Reaction Event Type N.K.D.A. Info Not Available Non Drug Allergy Problems Problem Type Condition Code Onset Dates Condition Status Assessment Seasonal allergies J30.2 Active Problem Cough 786.2 Active Problem Other malaise and fatigue 780.79 Active Problem Need for prophylactic vaccination and inoculation, Influenza V04.81 Active Problem Acute sinusitis, unspecified 461.9 Active Assessment Viral syndrome B34.9 Active Problem Fever, unspecified 780.60 Active Problem Actinic keratosis 702.0 Active Medications Medication Code System Code Instructions Start Date End Date Status Dosage Claritin [facility] [address]-22 10 MG Orally Once a day Jul 29, 2015 Aug 28, 2015 1 tablet Simvastatin [facility] [address]-60 10 MG Orally Once a day 1 tablet in the evening Xyzal [facility] [address]-92 5 MG Orally Once a day 1 tablet in the evening Procedures Procedure Coding System Code Date Office Visit, Est Pt., Level 3 CPT-4 89634 Jul 29, 2015 Vital Signs Date/Time: Jul 29, 2015 Temperature 98.5 F Weight 146 lbs Height 66 in BMI 23.56 Index Blood Pressure Diastolic 78 mmHg Blood Pressure Systolic 118 mmHg Results No Known Results Summary Purpose eClinicalWorks Submission
--- OUTSIDE RECORDS SUMMARY | 2017-12-26 07:36 | XMS REPORT ---
Author Author NAVNEET GARCIA Organization [employer]Clinical[employer] Address Unknown Phone Unavailable Care Team Providers Care Rewrite Editor Name Role Phone NAVNEET GARCIA CP Unavailable Allergies, Adverse Reactions, Alerts Substance Reaction Event Type N.K.D.A. Info Not Available Non Drug Allergy Problems Problem Type Condition Code Onset Dates Condition Status Problem Cough 786.2 Active Problem Other malaise and fatigue 780.79 Active Problem Need for prophylactic vaccination and inoculation, Influenza V04.81 Active Problem Acute sinusitis, unspecified 461.9 Active Assessment Abscess L02.91 Active Problem Fever, unspecified 780.60 Active Problem Actinic keratosis 702.0 Active Medications Medication Code System Code Instructions Start Date End Date Status Dosage Xyzal [facility] [address]-37 5 MG Orally Once a day 1 tablet in the evening Simvastatin [facility] [address]-47 10 MG Orally Once a day 1 tablet in the evening Clindamycin HCl [facility] [address]-14 300 MG Orally 2 times a day Sep 16, 2015 Sep 23, 2015 1 capsule Procedures Procedure Coding System Code Date Office Visit, Est Pt., Level 3 CPT-4 85957 Sep 16, 2015 Vital Signs Date/Time: Sep 16, 2015 Temperature 98.6 F Weight 143 lbs Height 66 in BMI 23.08 Index Blood Pressure Diastolic 76 mmHg Blood Pressure Systolic 116 mmHg Cardiac Monitoring Heart Rate 75 bpm Results No Known Results Summary Purpose eClinicalWorks Submission
--- OUTSIDE RECORDS SUMMARY | 2017-12-26 07:36 | XMS REPORT ---
Author ZOILA [facility] eClinicalWorks Address Unknown Phone Unavailable Care Team Providers Care Electronic System Engineer Name Role Phone ZOILA JO CP Unavailable Allergies No Known Allergies Problems [...] System Code Date SINGLE IMMUNIZATION ADMIN CPT-4 58781 Jul 03, 2015 FLUARIX QUAD (3 & UP)-GSK-2014 CPT-4 57499 Jul 03, 2015 Results No Known Results Immunizations Vaccine Administration Date FLUARIX QUAD (3 & UP)-GSK-2014Jul 03, 2015 Summary Purpose eClinicalWorks Submission
--- OUTSIDE RECORDS SUMMARY | 2017-12-26 07:36 | XMS REPORT ---
Author Author MILAGRO CORRALES [facility] eClinicalWorks Address Unknown Phone Unavailable Care Team Providers Care Disk Sharpener Name Role Phone MILAGRO CORRALES CP Unavailable Allergies, Adverse Reactions, Alerts Substance Reaction Event Type N.K.D.A. Info Not Available Non Drug Allergy Problems Problem Type Condition Code Onset Dates Condition Status Problem Cough 786.2 Active Problem Other malaise and fatigue 780.79 Active Problem Need for prophylactic vaccination and inoculation, Influenza V04.81 Active Problem Acute sinusitis, unspecified 461.9 Active Assessment Cough R05 Active Problem Fever, unspecified 780.60 Active Problem Actinic keratosis 702.0 Active Medications Medication Code System Code Instructions Start Date End Date Status Dosage Xyzal [facility] [address]-97 5 MG Orally Once a day 1 tablet in the evening Tessalon Perles [facility] [address]-07 100 MG Orally Three times a day Aug 03, 2015 Aug 17, 2015 1 capsule as needed Simvastatin [facility] [address]-57 10 MG Orally Once a day 1 tablet in the evening Claritin [facility] [address]-63 10 MG Orally Once a day Jul 29, 2015 Aug 28, 2015 1 tablet Procedures Procedure Coding System Code Date Office Visit, Est Pt., Level 3 CPT-4 69786 Aug 03, 2015 Vital Signs Date/Time: Aug 03, 2015 Temperature 98.2 F Weight 146.1 lbs Height 66 in BMI 23.58 Index Blood Pressure Diastolic 68 mmHg Blood Pressure Systolic 118 mmHg Cardiac Monitoring Heart Rate 68 bpm Results No Known Results Summary Purpose eClinicalWorks Submission
--- OUTSIDE RECORDS SUMMARY | 2017-12-26 07:37 | XMS REPORT | Continuity of Care Document ---
Author Author [facility] Address Unknown Phone Unavailable Allergies Active Description Code Type Severity Reaction Onset Reported/Identified Relationship to Patient Clinical Status Yes No Known Drug Allergies [id number] Drug Allergy Unknown N/A 12/24/2017 Medications There is no data. Problems Date Dx Coded Attending Type Code Diagnosis Diagnosed By 08/21/1055 PARISH DOHERTY Ot D05.12 INTRADUCTAL CARCINOMA IN SITU OF LEFT BR 08/21/1055 PARISH DOHERTY Ot Z51.0 ENCOUNTER FOR ANTINEOPLASTIC RADIATION T 04/16/2008 DEEPA VALDOVINOS APRN 729.81 SWELLING OF LIMB 04/16/2008 DEEPA VALDOVINOS APRN 882.0 OPEN WOUND OF HAND EXCEPT FINGERS ALONE WITHOUT COMPLICATION 04/16/2008 DEEPA VALDOVINOS APRN V06.1 DTP/Dtap, VYMGDBPBOT-DBTCGJA-EDYNLNIHE COMBINED 04/16/2008 ZOILA JO DO 729.81 SWELLING OF LIMB 04/16/2008 ZOILA JO DO 882.0 OPEN WOUND OF HAND EXCEPT FINGERS ALONE WITHOUT COMPLICATION 04/16/2008 ZOILA JO DO V06.1 DTP/Dtap, AJOGBMZYHS-JXTQPHK-FEOKIXAZQ COMBINED 04/16/2008 DIANE CHAWLA APRN 729.81 SWELLING OF LIMB 04/16/2008 DIANE CHAWLA APRN 882.0 OPEN WOUND OF HAND EXCEPT FINGERS ALONE WITHOUT COMPLICATION 04/16/2008 DIANE CHAWLA APRN V06.1 DTP/Dtap, FIBAKTUSGF-SJMYVAK-HHTONIQPU COMBINED 04/16/2008 LOVE PALMA APRN 729.81 SWELLING OF LIMB 04/16/2008 LOVE PALMA APRN 882.0 OPEN WOUND OF HAND EXCEPT FINGERS ALONE WITHOUT COMPLICATION 04/16/2008 LOVE PALMA APRN V06.1 DTP/Dtap, HANICGIPUT-XMRZFPG-QCJJYMSWL COMBINED 04/16/2008 ZOILA JO DO 729.81 SWELLING OF LIMB 04/16/2008 SANDRO BUSH ZOILA K 882.0 OPEN WOUND OF HAND EXCEPT FINGERS ALONE WITHOUT COMPLICATION 04/16/2008 FER JO DOA K V06.1 DTP/Dtap, DSUNUTSMRC-GLTULZJ-MQBBZOBPP COMBINED 05/09/2010 DEEPA VALDOVINOS APRN R 719.40 PAIN IN JOINT, SITE UNSPECIFIED 05/09/2010 FER JO DOA K 719.40 PAIN IN JOINT, SITE UNSPECIFIED 05/09/2010 DIANE CHAWLA APRN 719.40 PAIN IN JOINT, SITE UNSPECIFIED 05/09/2010 LOVE PALMA APRN L 719.40 PAIN IN JOINT, SITE UNSPECIFIED 05/09/2010 FER JO DOA K 719.40 PAIN IN JOINT, SITE UNSPECIFIED 11/17/2010 DEEPA VALDOVINOS APRN R 465.9 UPPER RESPIRATORY INFECTION 11/17/2010 DEEPA VALDOVINOS APRN R 784.49 HOARSENESS 11/17/2010 FER JO DOA K 465.9 UPPER RESPIRATORY INFECTION 11/17/2010 FER JO DOA K 784.49 HOARSENESS 11/17/2010 DIANE CHAWLA APRN 465.9 UPPER RESPIRATORY INFECTION 11/17/2010 DIANE CHAWLA APRN 784.49 HOARSENESS 11/17/2010 LOVE PALMA APRN L 465.9 UPPER RESPIRATORY INFECTION 11/17/2010 ROOSEVELT PALMA APRNA L 784.49 HOARSENESS 11/17/2010 SANDRO BUSH ZOILA K 465.9 UPPER RESPIRATORY INFECTION 11/17/2010 FER JO DOA K 784.49 HOARSENESS 02/14/2011 DEEPA VALDOVINOS APRN R 919.4 INSECT BITE NONVENOMOUS OF OTHER MULTIPLE AND UNSPECIFIED SITES WITHOUT INFECTION 02/14/2011 FER JO DOA K 919.4 INSECT BITE NONVENOMOUS OF OTHER MULTIPLE AND UNSPECIFIED SITES WITHOUT INFECTION 02/14/2011 DIANE CHAWLA APRN 919.4 INSECT BITE NONVENOMOUS OF OTHER MULTIPLE AND UNSPECIFIED SITES WITHOUT INFECTION 02/14/2011 LOVE PALMA APRN L 919.4 INSECT BITE NONVENOMOUS OF OTHER MULTIPLE AND UNSPECIFIED SITES WITHOUT INFECTION 02/14/2011 FER JO DOA K 919.4 INSECT BITE NONVENOMOUS OF OTHER MULTIPLE AND UNSPECIFIED SITES WITHOUT INFECTION 12/14/2012 DEEPA VALDOVINOS APRN R 461.9 SINUSITIS ACUTE 12/14/2012 ZOILA JO DO K 461.9 SINUSITIS ACUTE 12/14/2012 CAMMY GILLISDIANE Santos 461.9 SINUSITIS ACUTE 12/14/2012 LOUIE SUBMERSIBLE PILOT, LOVE L 461.9 SINUSITIS ACUTE 12/14/2012 FER JO DOA K 461.9 SINUSITIS ACUTE 06/30/2013 FER JO DOA K V04.81 FLU SHOT 06/30/2013 DIANE CHAWLA APRN V04.81 FLU SHOT 06/30/2013 MADL SUBMERSIBLE PILOT, LOVE L V04.81 FLU SHOT 06/30/2013 JO DOFERA K V04.81 FLU SHOT 02/02/2014 MADL SUBMERSIBLE PILOT, LOVE L 780.60 FEVER, UNSPECIFIED 02/02/2014 MADL SUBMERSIBLE PILOT, LOVE L 780.79 OTHER MALAISE AND FATIGUE 02/02/2014 MADL SUBMERSIBLE PILOT, LOVE L 786.2 COUGH 02/02/2014 JO DO, ZOILA K 780.60 FEVER, UNSPECIFIED 02/02/2014 JO DO, ZOILA K 780.79 OTHER MALAISE AND FATIGUE 02/02/2014 SANDRO BUSH, ZOILA K 786.2 COUGH 07/18/2015 Ot 252.00 07/18/2015 Ot V76.12 07/18/2015 Ot V76.12 07/18/2015 JD CHAU MD Ot V76.12 08/03/2015 JD CHAU MD Ot Z12.31 08/23/2015 JD CHAU MD Ot R92.8 01/29/2016 Ot 252.00 HYPERPARATHYROIDISM, UNSPECIFIED 01/29/2016 Ot V76.12 OTH SCREEN MAMMO-MALIGN NEOPLASM OF KOBE 01/29/2016 Ot V76.12 OTH SCREEN MAMMO-MALIGN NEOPLASM OF KOBE 01/29/2016 JD CHAU MD Ot V76.12 OTH SCREEN MAMMO-MALIGN NEOPLASM OF KOBE 01/29/2016 JD CHAU MD Ot Z12.31 ENCNTR SCREEN MAMMOGRAM FOR MALIGNANT NE 01/29/2016 JD CHAU MD Ot R92.8 OTH ABN AND INCONCLUSIVE FINDINGS ON DX 01/30/2016 JD CHAU MD Ot R92.8 OTH ABN AND INCONCLUSIVE FINDINGS ON DX 02/02/2016 JD CHAU MD Ot R92.8 OTH ABN AND INCONCLUSIVE FINDINGS ON DX 02/02/2016 JD CHAU MD Ot R92.8 OTH ABN AND INCONCLUSIVE FINDINGS ON DX 02/02/2016 JD CHAU MD Ot R92.8 OTH ABN AND INCONCLUSIVE FINDINGS ON DX 02/02/2016 JD CHAU MD Ot R92.8 OTH ABN AND INCONCLUSIVE FINDINGS ON DX 02/05/2016 JD CHAU MD Ot R92.8 OTH ABN AND INCONCLUSIVE FINDINGS ON DX 02/06/2016 JD CHAU MD Ot R92.8 OTH ABN AND INCONCLUSIVE FINDINGS ON DX 02/08/2016 JD CHAU MD Ot D05.12 INTRADUCTAL CARCINOMA IN SITU OF LEFT BR 02/15/2016 JD CHAU MD Ot R92.8 OTH ABN AND INCONCLUSIVE FINDINGS ON DX 02/21/2016 JD CHAU MD Ot D05.12 INTRADUCTAL CARCINOMA IN SITU OF LEFT BR 02/26/2016 Ot 252.00 HYPERPARATHYROIDISM, UNSPECIFIED 02/26/2016 Ot V76.12 OTH SCREEN MAMMO-MALIGN NEOPLASM OF KOBE 02/26/2016 Ot V76.12 OTH SCREEN MAMMO-MALIGN NEOPLASM OF KOBE 02/26/2016 JD CHAU MD Ot V76.12 OTH SCREEN MAMMO-MALIGN NEOPLASM OF KOBE 02/26/2016 JD CHAU MD Ot Z12.31 ENCNTR SCREEN MAMMOGRAM FOR MALIGNANT NE 02/26/2016 JD CHAU MD Ot R92.8 OTH ABN AND INCONCLUSIVE FINDINGS ON DX 02/26/2016 JD CHAU MD Ot R92.8 OTH ABN AND INCONCLUSIVE FINDINGS ON DX 02/26/2016 JD CHAU MD Ot D05.12 INTRADUCTAL CARCINOMA IN SITU OF LEFT BR 03/19/2016 ROSA FOFANA DO Ot Z01.810 ENCOUNTER FOR PREPROCEDURAL CARDIOVASCUL 03/21/2016 ROSA FOFANA DO Ot Z01.810 ENCOUNTER FOR PREPROCEDURAL CARDIOVASCUL 04/12/2016 ROSA FOFANA DO Ot Z01.810 ENCOUNTER FOR PREPROCEDURAL CARDIOVASCUL 05/13/2016 PARISH DOHERTY Ot D05.12 INTRADUCTAL CARCINOMA IN SITU OF LEFT BR 05/23/2016 CT ROSA BUSH Ot Z01.810 ENCOUNTER FOR PREPROCEDURAL CARDIOVASCUL 06/24/2016 PARISH DOHERTY Ot D05.12 INTRADUCTAL CARCINOMA IN SITU OF LEFT BR 06/24/2016 PARISH DOHERTY Ot Z51.0 ENCOUNTER FOR ANTINEOPLASTIC RADIATION T 06/28/2016 PARISH DOHERTY Ot D05.12 INTRADUCTAL CARCINOMA IN SITU OF LEFT BR 08/01/2016 PARISH DOHERTY Ot D05.12 INTRADUCTAL CARCINOMA IN SITU OF LEFT BR 08/01/2016 PARISH DOHERTY Ot E78.5 HYPERLIPIDEMIA, UNSPECIFIED 08/01/2016 PARISH DOHERTY Ot K21.9 GASTRO-ESOPHAGEAL REFLUX DISEASE WITHOUT 08/01/2016 PARISH DOHERTY Ot Z79.810 LNG TRM (CRNT) USE OF SLCTV ESTROG SERGER 08/01/2016 PARISH DOHERTY Ot Z79.899 OTHER BACK ORDER CLERK (CURRENT) DRUG THERAPY 09/25/2016 PARISH DOHERTY Ot D05.12 INTRADUCTAL CARCINOMA IN SITU OF LEFT BR 09/25/2016 PARISH DOHERTY Ot E78.5 HYPERLIPIDEMIA, UNSPECIFIED 09/25/2016 PARISH DOHERTY Ot K21.9 GASTRO-ESOPHAGEAL REFLUX DISEASE WITHOUT 09/25/2016 PARISH DOHERTY Ot Z79.810 LNG TRM (CRNT) USE OF SLCTV ESTROG SERGER 09/25/2016 PARIHS DOHERTY Ot Z79.899 OTHER PENITENTIARY (CURRENT) DRUG THERAPY 09/26/2016 PARISH DOHERTY Ot D05.12 INTRADUCTAL CARCINOMA IN SITU OF LEFT BR 09/26/2016 PARISH DOHERTY Ot E78.5 HYPERLIPIDEMIA, UNSPECIFIED 09/26/2016 PARISH DOHERTY N Ot K21.9 GASTRO-ESOPHAGEAL REFLUX DISEASE WITHOUT 09/26/2016 PARISH DOHERTY Ot Z79.810 LNG TRM (CRNT) USE OF SLCTV ESTROG SERGER 09/26/2016 PARISH DOHERTY Ot Z79.899 OTHER PENITENTIARY (CURRENT) DRUG THERAPY 10/01/2016 PARISH DOHERTY Ot D05.12 INTRADUCTAL CARCINOMA IN SITU OF LEFT BR 10/01/2016 PARISH DOHERTY N Ot E78.5 HYPERLIPIDEMIA, UNSPECIFIED 10/01/2016 PARISH DOHERTY N Ot K21.9 GASTRO-ESOPHAGEAL REFLUX DISEASE WITHOUT 10/01/2016 PARISH DOHERTY Ot Z79.810 LNG TRM (CRNT) USE OF SLCTV ESTROG SERGER 10/01/2016 PARISH DOHERTY N Ot Z79.899 OTHER BACK ORDER CLERK (CURRENT) DRUG THERAPY 01/24/2017 PARISH DOHERTY N Ot D05.12 INTRADUCTAL CARCINOMA IN SITU OF LEFT BR 01/24/2017 PARISH DOHERTY N Ot E78.5 HYPERLIPIDEMIA, UNSPECIFIED 01/24/2017 PARISH DOHERTY N Ot K21.9 GASTRO-ESOPHAGEAL REFLUX DISEASE WITHOUT 01/24/2017 PARISH DOHERTY N Ot Z79.810 LNG TRM (CRNT) USE OF SLCTV ESTROG SERGER 01/24/2017 PARISH DOHERTY N Ot Z79.899 OTHER BACK ORDER CLERK (CURRENT) DRUG THERAPY 03/05/2017 PARISH DOHERTY Ot D05.12 INTRADUCTAL CARCINOMA IN SITU OF LEFT BR 03/05/2017 PARISH DOHERTY N Ot E78.5 HYPERLIPIDEMIA, UNSPECIFIED 03/05/2017 PARISH DOHERTY N Ot K21.9 GASTRO-ESOPHAGEAL REFLUX DISEASE WITHOUT 03/05/2017 PARISH DOHERTY N Ot Z79.810 LNG TRM (CRNT) USE OF SLCTV ESTROG SERGER 03/05/2017 PARISH DOHERTY N Ot Z79.899 OTHER BACK ORDER CLERK (CURRENT) DRUG THERAPY 04/23/2017 PARISH DOHERTY N Ot D05.12 INTRADUCTAL CARCINOMA IN SITU OF LEFT BR 04/23/2017 PARISH DOHERTY N Ot E78.5 HYPERLIPIDEMIA, UNSPECIFIED 04/23/2017 PARISH DOHERTY N Ot K21.9 GASTRO-ESOPHAGEAL REFLUX DISEASE WITHOUT 04/23/2017 PARISH DOHERTY N Ot Z79.810 LNG TRM (CRNT) USE OF SLCTV ESTROG SERGER 04/23/2017 PARISH DOHERTY N Ot Z79.899 OTHER PENITENTIARY (CURRENT) DRUG THERAPY 08/26/2017 Ot V76.12 OTH SCREEN MAMMO-MALIGN NEOPLASM OF KOBE 08/26/2017 JD CHAU MD, Ot V76.12 OTH SCREEN MAMMO-MALIGN NEOPLASM OF KOBE 08/26/2017 JD CHAU MD Ot Z12.31 ENCNTR SCREEN MAMMOGRAM FOR MALIGNANT NE 08/26/2017 JD CHAU MD Ot R92.8 OTH ABN AND INCONCLUSIVE FINDINGS ON DX 08/26/2017 JD CHAU MD, Ot R92.8 OTH ABN AND INCONCLUSIVE FINDINGS ON DX 08/26/2017 JD CHAU MD Ot D05.12 INTRADUCTAL CARCINOMA IN SITU OF LEFT BR 08/26/2017 ROSA FOFANA DO Ot Z01.810 ENCOUNTER FOR PREPROCEDURAL CARDIOVASCUL 08/27/2017 PARISH DOHERTY Ot D05.12 INTRADUCTAL CARCINOMA IN SITU OF LEFT BR 08/27/2017 PARISH DOHERTY Ot E78.5 HYPERLIPIDEMIA, UNSPECIFIED 08/27/2017 PARISH DOHERTY Ot K21.9 GASTRO-ESOPHAGEAL REFLUX DISEASE WITHOUT 08/27/2017 PARISH DOHERTY Ot Z79.810 LNG TRM (CRNT) USE OF SLCTV ESTROG SERGER 08/27/2017 PARISH DOHERTY N Ot Z79.899 OTHER PENITENTIARY (CURRENT) DRUG THERAPY 10/01/2017 PARISH DOHERTY Ot D05.12 INTRADUCTAL CARCINOMA IN SITU OF LEFT BR 10/01/2017 PARISH DOHERTY Ot E78.5 HYPERLIPIDEMIA, UNSPECIFIED 10/01/2017 PARISH DOHERTY Ot K21.9 GASTRO-ESOPHAGEAL REFLUX DISEASE WITHOUT 10/01/2017 PARISH DOHERTY Ot Z79.810 LNG TRM (CRNT) USE OF SLCTV ESTROG SERGER 10/01/2017 PARISH DOHERTY N Ot Z79.899 OTHER BACK ORDER CLERK (CURRENT) DRUG THERAPY 11/14/2017 JD CHAU MD Ot J98.11 ATELECTASIS 11/18/2017 Ot V76.12 OTH SCREEN MAMMO-MALIGN NEOPLASM OF KOBE 11/18/2017 JD CHAU MD Ot V76.12 OTH SCREEN MAMMO-MALIGN NEOPLASM OF KOBE 11/18/2017 JD CHAU MD Ot Z12.31 ENCNTR SCREEN MAMMOGRAM FOR MALIGNANT NE 11/18/2017 JD CHAU MD Ot R92.8 OTH ABN AND INCONCLUSIVE FINDINGS ON DX 11/18/2017 JD CHAU MD, Ot R92.8 OTH ABN AND INCONCLUSIVE FINDINGS ON DX 11/18/2017 JD CHAU MD, Ot D05.12 INTRADUCTAL CARCINOMA IN SITU OF LEFT BR 11/18/2017 CT BUSH ROSA L Ot Z01.810 ENCOUNTER FOR PREPROCEDURAL CARDIOVASCUL 11/18/2017 PARISH DOHERTY Ot D05.12 INTRADUCTAL CARCINOMA IN SITU OF LEFT BR 11/18/2017 PARISH DOHERTY N Ot E78.5 HYPERLIPIDEMIA, UNSPECIFIED 11/18/2017 PARISH DOHERTY N Ot K21.9 GASTRO-ESOPHAGEAL REFLUX DISEASE WITHOUT 11/18/2017 PARISH DOHERTY N Ot Z79.810 LNG TRM (CRNT) USE OF SLCTV ESTROG SERGER 11/18/2017 CHAS PARISH Santos Ot Z79.899 OTHER PENITENTIARY (CURRENT) DRUG THERAPY 11/18/2017 JD CHAU MD, Ot J98.11 ATELECTASIS 11/20/2017 JD CHAU MD, Ot J84.10 PULMONARY FIBROSIS, UNSPECIFIED 11/20/2017 JD CHAU MD, Ot Z98.890 OTHER SPECIFIED POSTPROCEDURAL STATES 11/24/2017 PARISH DOHERTY Danielle Ot D05.12 INTRADUCTAL CARCINOMA IN SITU OF LEFT BR 11/24/2017 PARISH DOHERTY N Ot E78.5 HYPERLIPIDEMIA, UNSPECIFIED 11/24/2017 PARISH DOHERTY N Ot K21.9 GASTRO-ESOPHAGEAL REFLUX DISEASE WITHOUT 11/24/2017 CHASPARISH ROCHA N Ot Z79.810 LNG TRM (CRNT) USE OF SLCTV ESTROG SERGER 11/24/2017 PARISH DOHERTY Ot Z79.899 OTHER PENITENTIARY (CURRENT) DRUG THERAPY 11/24/2017 JD CHAU MD, Ot J84.10 PULMONARY FIBROSIS, UNSPECIFIED 11/24/2017 JD CHAU MD, Ot Z98.890 OTHER SPECIFIED POSTPROCEDURAL STATES 11/28/2017 JD CHAU MD, Ot J84.10 PULMONARY FIBROSIS, UNSPECIFIED 11/28/2017 JD CHAU MD, Ot Z98.890 OTHER SPECIFIED POSTPROCEDURAL STATES 12/01/2017 JD CHAU MD, Ot J84.10 PULMONARY FIBROSIS, UNSPECIFIED 12/01/2017 JD CHAU MD, Ot Z98.890 OTHER SPECIFIED POSTPROCEDURAL STATES 12/05/2017 ISAC PITT, JD Morris Ot R00.2 PALPITATIONS 12/22/2017 AVTAR MAYO MD Ot Z01.818 ENCOUNTER FOR OTHER PREPROCEDURAL EXAMIN 12/22/2017 AVTAR MAYO MD Ot Z12.11 ENCOUNTER FOR SCREENING FOR MALIGNANT NE 12/24/2017 AVTAR MAYO MD Ot Z01.818 ENCOUNTER FOR OTHER PREPROCEDURAL EXAMIN 12/24/2017 AVTAR MAYO MD Ot Z12.11 ENCOUNTER FOR SCREENING FOR MALIGNANT NE 12/24/2017 AVTAR MAYO MD Ot Z01.818 ENCOUNTER FOR OTHER PREPROCEDURAL EXAMIN 12/24/2017 AVTAR MAYO MD Ot Z12.11 ENCOUNTER FOR SCREENING FOR MALIGNANT NE 12/24/2017 PARISH DOHERTY Ot D05.12 INTRADUCTAL CARCINOMA IN SITU OF LEFT BR 12/24/2017 PARISH DOHERTY Ot E78.5 HYPERLIPIDEMIA, UNSPECIFIED 12/24/2017 PARISH DOHERTY Ot K21.9 GASTRO-ESOPHAGEAL REFLUX DISEASE WITHOUT 12/24/2017 PARISH DOHERTY Ot Z79.810 LNG TRM (CRNT) USE OF SLCTV ESTROG SERGER 12/24/2017 PARISH DOHERTY Ot Z79.899 OTHER BACK ORDER CLERK (CURRENT) DRUG THERAPY Procedures There is no data. Results There is no data. Encounters ACCT No. Visit Date/Time Discharge Status Pt. Type Provider Facility Loc./Unit Complaint [id number] 06/29/2014 13:31:00 06/29/2014 23:59:59 CLS Outpatient ZOILA JO DO [id number] 02/17/2014 09:38:00 02/17/2014 23:59:59 CLS Outpatient LOVE PALMA APRN [id number] 12/31/2013 10:35:00 12/31/2013 23:59:59 CLS Outpatient DIANE CHAWLA APRN [id number] 06/30/2013 17:41:00 06/30/2013 23:59:59 CLS Outpatient ZOILA JO DO [id number] 12/14/2012 11:57:00 12/14/2012 23:59:59 CLS Outpatient DEEPA VALDOVINOS APRN [id number] 08/15/2017 11:40:00 08/15/2017 23:59:59 CLS Outpatient TAJ CONROY APRN [facility] [id number] 12/24/2017 10:15:00 12/24/2017 10:58:00 DIS Outpatient AVTAR MAYO MD [facility] PREOP COLONOSCOPY [id number] 11/25/2017 00:13:00 11/25/2017 23:59:59 CLS Preadmit PARISH DOHERTY [facility] ONC [id number] 08/26/2017 10:57:00 11/24/2017 00:01:00 DIS Outpatient PARISH DOHERTY [facility] ONC [id number] 11/18/2017 09:50:00 11/18/2017 23:59:59 CLS Outpatient JD CHAU MD [facility] CARD PALPITATIONS [id number] 11/13/2017 15:28:00 11/13/2017 23:59:59 CLS Outpatient JD CHAU MD [facility] RAD COUGH [id number] 01/23/2017 12:44:00 04/23/2017 00:01:00 DIS Outpatient PARISH DOHERTY [facility] ONC [id number] 07/30/2016 13:54:00 09/25/2016 00:01:00 DIS Outpatient PARISH DOHERTY [facility] ONC [id number] 06/18/2016 07:57:00 06/24/2016 10:56:00 DIS Outpatient PARISH DOHERTY [facility] ONC [id number] 05/23/2016 13:49:00 05/23/2016 23:59:59 CLS Preadmit ASPEN SIDDIQUI [facility] ONC [id number] 03/18/2016 09:32:00 03/18/2016 23:59:59 CLS Outpatient ROSA FOFANA DO [facility] CARD V72.84 [id number] 02/01/2016 09:59:00 02/01/2016 23:59:59 CLS Outpatient JD CHAU MD [facility] RAD CALCIFICATIONS [id number] 01/29/2016 07:40:00 01/29/2016 23:59:59 CLS Outpatient JD CHAU MD [facility] RAD ABNORMAL LEFT MAMMO [id number] 07/31/2015 14:14:00 07/31/2015 23:59:59 CLS Outpatient JD CHAU MD [facility] RAD ABN MAMMO [id number] 07/18/2015 10:56:00 07/18/2015 23:59:59 CLS Outpatient JD CHAU MD [facility] RAD SCREENING [id number] 10/19/2013 07:36:00 10/19/2013 23:59:59 CLS Outpatient JD CHAU MD [facility] RAD SCREENING [id number] 12/26/2017 08:45:00 AVTAR Funez MD [facility] ENDO SCREENING [id number] 08/25/2012 07:24:00 Document Registration [id number] 07/11/2011 07:39:00 Document Registration [id number] 10/26/2010 08:55:00 Document Registration
[2017-12-26 07:57] VITALS: BP 115/58
--- NOTE | 2017-12-26 08:36 | Pre-Op Note & Conscious Sedat ---
Pre-Operative Progress Note H&P Reviewed The H&P was reviewed, patient examined and no changes noted. Date H&P Reviewed: Dec 26, 2017 Time H&P Reviewed: 08:30 Conscious Sedation Pre-Proced ASA Class: 2 Airway Mallampati Classification: (manzanita appropriate class) I. II. III, IV Lungs Heart ASA score ASA 1: a normal healthy patient ASA 2: a patient with a mild systemic disease (mid diabetes, controlled hypertension, obesity ASA 3: a patient with a severe systemic disease that limits activity (angina , COPD, prior Myocardial infarction) ASA 4: a patient with an incapacitating disease that is a constant threat to life (CHF, renal failure) ASA 5: a moribund patient not expected to survive 24 hrs. (ruptured aneurysm) ASA 6: a declared brain patient whose organs are being harvested. For emergent operations, add the letter E after the classification Grade 2 Sedation Plan: Analgesia, Amnesia, Plan communicated to team members, Discussed options with patient/fam, Discussed risks with patient/fam Note The patient is an appropriate candidate to undergo the planned procedure, sedation, and anesthesia. The patient immediately re-assessed prior to indication. AVTAR MAYO MD Dec 26, 2017 08:36
[2017-12-26] MEDS: MIDAZOLAM 2 MG/2 ML (VERSED) VIAL IVP PRN ×2 (08:41→09:10)
[2017-12-26 09:40] VITALS: BP 117/60
[2017-12-26 10:10] VITALS: BP 108/67
[2017-12-26 10:15] VITALS: BP 108/67
--- NOTE | 2017-12-26 14:57 | OPERATIVE REPORT ---
DATE OF SERVICE: 12/26/2017 COLONOSCOPY SUMMARY REFERRING PHYSICIAN: Dr. Rigoberto Macdonald. INDICATION FOR PROCEDURE: Screening colonoscopy. DESCRIPTION OF PROCEDURE: The patient was placed in left lateral decubitus position. Prior to having the colonoscopy, a digital rectal evaluation was performed. The patient had prominence of perianal skin folds, but no evidence for active hemorrhoids. Anal sphincter tone was normal and the perianal reflexes intact. No other abnormalities, no additional inspection of the anal canal or distal rectal vault. The colonoscope was then inserted into the rectum and under direct visualization advanced to the cecum. The cecum was identified by identification of the ileocecal valve and cecal strap. Photographic documentation was obtained. Careful inspection was made as the colonoscope was withdrawn. The patient tolerated the procedure well. FINDINGS: The rectum, sigmoid colon, descending colon, splenic flexure, transverse colon, hepatic flexure, ascending colon and cecum were unremarkable. No evidence for polyps, diverticulum or vascular malformation were noted. ASSESSMENT: Normal colonoscopy to the cecum. The patient is not aware of any family history for colon cancer, so we would advise consideration for repeat screening colonoscopy in 10 years. I thank you for the referral of this pleasant lady. Job ID: [id number] DocumentID: [id number] Dictated Date: 12/26/2017 10:30:50 Frame Fixer Date: 12/26/2017 13:58:23 Dictated By: AVTAR MAYO MD
== END | disposition home or self-care (01) ==
LOC: ENDO 07:32
PROVIDERS: ATTEND Internal Medicine
DX: Z12.11 Encounter for screening for malignant neoplasm of colon (principal); E78.5 Hyperlipidemia, unspecified; D05.12 Intraductal carcinoma in situ of left breast; Z79.810 Long term (current) use of selective estrogen receptor modulators (SERMs); Z79.899 Other long term (current) drug therapy

== ENCOUNTER 2017-12-31 07:15 | Emergency (ER) | payer BC ==
[~2017-12-31] VITALS: Ht 170.2 cm; Wt 63.5 kg
[~2017-12-31 07:15] MED LIST changes: -1/2 NS IV SOLUTION 1,000 ML IV ONE; -1/2 NS IV SOLUTION 1,000 ML IV STA; -LIDOCAINE JELLY 2% (XYLOCAINE) 5 ML TUBE MM PRN; -MIDAZOLAM 2 MG/2 ML (VERSED) VIAL IVP PRN; -ONDANSETRON 4 MG/2 ML (SDV) Z0FRAN ONE; -fentaNYL INJECTION 100 MCG/2 ML AMP IVP PRN
[2017-12-31] MEDS ORDERED: ASPIRIN 81 MG CHEW (CHILDREN'S ASA) PO ONE (07:30)
[2017-12-31 07:35] LABS: BASOPHILS % (AUTO) 0 % (0-10); EOSINOPHILS # (AUTO) 0.1 10^3/uL (0.0-0.3); EOSINOPHILS % (AUTO) 2 % (0-10); HEMATOCRIT 42 % (35-52); HEMOGLOBIN 13.7 G/DL (11.5-16.0); LYMPHOCYTES # (AUTO) 2.2 X 10^3 (1.0-4.0); LYMPHOCYTES % (AUTO) 34 % (12-44); MEAN CORPUSCULAR HEMOGLOBIN 30 PG (25-34); MEAN CORPUSCULAR HGB CONC 33 G/DL (32-36); MEAN CORPUSCULAR VOLUME 89 FL (80-99); MEAN PLATELET VOLUME 11.5 FL (7.4-10.4); MONOCYTES # (AUTO) 0.4 X 10^3 (0.0-1.0); MONOCYTES % (AUTO) 7 % (0-12); NEUTROPHILS # (AUTO) 3.7 X 10^3 (1.8-7.8); NEUTROPHILS % (AUTO) 57 % (42-75); PLATELET COUNT 225 10^3/uL (130-400); RED BLOOD COUNT 4.64 10^6/uL (4.35-5.85); RED CELL DISTRIBUTION WIDTH 13.5 % (10.0-14.5); WHITE BLOOD COUNT 6.5 10^3/uL (4.3-11.0)
[2017-12-31] MEDS: NITROGLYCERIN 0.4 MG SL TABS BTL 25'S SL PRN ×2 (07:35→07:47)
[2017-12-31 07:45] LABS: PROTHROMBIN TIME PATIENT 13.4 SEC (12.2-14.7)
--- NOTE | 2017-12-31 07:48 | ED Chest Pain ---
General Chief Complaint: Cardiac/General Problems Stated Complaint: CHEST TIGHTNESS,TINGLING IN HANDS Source: patient Exam Limitations: no limitations History of Present Illness Date Seen by Provider: Dec 31, 2017 Time Seen by Provider: 07:14 Initial Comments Here with report of chest tightness that started at 4 a.m. and has persisted. Also notes tingling in both hands. States that she felt anxious and did have some dizziness. Denies nausea, vomiting, diarrhea, sweating or breathing problems. She's had a few episodes of this over the last month and was actually falling with her doctor for this as well as had Holter monitor for a few days. She did have colonoscopy last week which was negative. Timing/Duration: 1-3 hours Severity/Quality: mild, moderate, tightness Location: central Radiation: back Activities at Onset: none Prior CP/Workup: other (Holter monitor) Modifying Factors: improves with other (none) ASA po RADARMAN: No NTG SL RADARMAN: No Associated Symptoms: No abdominal pain; back pain; No diaphoresis; dizziness; No fever/chills, No nausea/vomiting, No shortness of breath, No weakness Allergies and Home Medications Allergies Coded Allergies: No Known Drug Allergies (Unverified , 12/24/17) Home Medications Simvastatin 20 Mg Tablet, 20 MG PO HS, (Reported) Tamoxifen Citrate 20 Mg Tablet, 20 MG PO DAILY, (Reported) Patient Home Medication List Home Medication List Reviewed: Yes Review of Systems Constitutional: see HPI EENTM: No Symptoms Reported Respiratory: No Symptoms Reported; Denies Shortness of Air, Denies Wheezing Cardiovascular: Chest Pain; Denies Edema Gastrointestinal: Denies Abdominal Pain, Denies Nausea, Denies Vomiting Genitourinary: No Symptoms Reported Musculoskeletal: no symptoms reported Skin: no symptoms reported Psychiatric/Neurological: Anxiety, Tingling (fingers) All Other Systems Reviewed Negative Unless Noted: Yes Past Sdoqvhu-Yhlqph-Zylfzk Hx Past Med/Social Hx: Reviewed Nursing Past Med/Soc Hx Patient Social History Alcohol Use: Denies Use Recreational Drug Use: No Smoking Status: Never a Smoker Recent Foreign Travel: No Contact w/Someone Who Travel: No Recent Hopitalizations: No Immunizations Up To Date Date of Influenza Vaccine: Jun 25, 2017 Seasonal Allergies Seasonal Allergies: No Past Medical History Surgeries: Yes (lumpectomy) Breast Respiratory: No Cardiac: Yes High Cholesterol Neurological: No Reproductive Disorders: No Genitourinary: No Gastrointestinal: No Musculoskeletal: No Endocrine: No Cancer: Yes Breast (precancerous) Did You Recieve Any Treatments: Yes What Type of Treatment Did You: Surgical Intervention (lumpectomy) Psychosocial: No Family Medical History Reviewed Nursing Family Hx No Pertinent Family Hx Physical Exam Vital Signs Vital Signs - First Documented 12/31/17 07:16 Temp 97.9 Pulse 75 Resp 18 B/P (MAP) 164/83 (110) O2 Delivery Room Air Capillary Refill : General Appearance: No Apparent Distress, WD/WN HEENT: PERRL/EOMI, Pharynx Normal Neck: Non Tender, Supple Respiratory: Lungs Clear, Normal Breath Sounds Cardiovascular: Regular Rate, Rhythm, No Murmur Gastrointestinal: No Organomegaly, No Pulsatile Mass, Non Tender, Soft Extremity: Normal Inspection, Normal Range of Motion, Non Tender, No Calf Tenderness Neurologic/Psychiatric: Alert, Oriented x3 Skin: Normal Color, Warm/Dry Progress/Results/Core Measures Lab Results Laboratory Tests Test 12/31/17 07:20 12/31/17 09:25 Range/Units White Blood Count 6.5 4.3-11.0 10^3/uL Red Blood Count 4.64 4.35-5.85 10^6/uL Hemoglobin 13.7 11.5-16.0 G/DL Hematocrit 42 35-52 % Mean Corpuscular Volume 89 80-99 FL Mean Corpuscular Hemoglobin 30 25-34 PG Mean Corpuscular Hemoglobin Concent 33 32-36 G/DL Red Cell Distribution Width 13.5 10.0-14.5 % Platelet Count 225 130-400 10^3/uL Mean Platelet Volume 11.5 H 7.4-10.4 FL Neutrophils (%) (Auto) 57 42-75 % Lymphocytes (%) (Auto) 34 12-44 % Monocytes (%) (Auto) 7 0-12 % Eosinophils (%) (Auto) 2 0-10 % Basophils (%) (Auto) 0 0-10 % Neutrophils # (Auto) 3.7 1.8-7.8 X 10^3 Lymphocytes # (Auto) 2.2 1.0-4.0 X 10^3 Monocytes # (Auto) 0.4 0.0-1.0 X 10^3 Eosinophils # (Auto) 0.1 0.0-0.3 10^3/uL Basophils # (Auto) 0.0 0.0-0.1 10^3/uL Prothrombin Time 13.4 12.2-14.7 SEC INR Comment 1.0 0.8-1.4 Activated Partial Thromboplast Time 28 24-35 SEC D-Dimer 0.31 0.00-0.49 UG/ML Sodium Level 143 135-145 MMOL/L Potassium Level 4.0 3.6-5.0 MMOL/L Chloride Level 107 98-107 MMOL/L Carbon Dioxide Level 24 21-32 MMOL/L Anion Gap 12 5-14 MMOL/L Blood Urea Nitrogen 19 H 7-18 MG/DL Creatinine 0.86 0.60-1.30 MG/DL Estimat Glomerular Filtration Rate > 60 BUN/Creatinine Ratio 22 Glucose Level 117 H 70-105 MG/DL Calcium Level 10.8 H 8.5-10.1 MG/DL Magnesium Level 2.4 1.8-2.4 MG/DL Total Bilirubin 0.5 0.1-1.0 MG/DL Aspartate Amino Transf (AST/SGOT) 20 5-34 U/L Alanine Aminotransferase (ALT/SGPT) 20 0-55 U/L Alkaline Phosphatase 56 40-136 U/L Myoglobin 28.8 32.4 10.0-92.0 NG/ML Troponin I < 0.30 < 0.30 <0.30 NG/ML Total Protein 7.5 6.4-8.2 GM/DL Albumin 4.5 3.2-4.5 GM/DL My Orders Orders - DEREK PEREA MD Cbc With Automated Diff (12/31/17) Magnesium (12/31/17) Chest 1 View, Ap/Pa Only (12/31/17) Ekg Tracing (12/31/17) Cardiac Profile 1 (12/31/17) Comprehensive Metabolic Panel (12/31/17) Myoglobin Serum (12/31/17) Protime With Inr (12/31/17) Partial Thromboplastin Time (12/31/17:) O2 (12/31/17:) Monitor-Rhythm Ecg Trace Only (12/31/17) Lipid Panel (01/01/18 06:00) Aspirin Chewable Tablet (Baby Aspirin Ch (12/31/17 07:30) Nitroglycerin 0.4 Mg Btl 25's (Nitrostat (12/31/17 07:30) Saline Lock/Iv-Start (12/31/17 07:26) Fibrin Degradation Products (12/31/17 07:26) Saline Lock/Iv-Start (12/31/17 07:53) Ns Iv 1000 Ml (Sodium Chloride 0.9%) (12/31/17 07:53) Ekg Tracing (12/31/17 09:04) Troponin I (12/31/17 09:04) Myoglobin Serum (12/31/17 09:04) Medications Given in ED Current Medications Medications Dose Ordered Sig/Aaron Route Start Time Stop Time Status Last Admin Dose Admin Aspirin 324 mg ONCE ONCE PO 12/31/17 07:30 12/31/17 07:31 DC 12/31/17 07:34 324 MG Nitroglycerin 0.4 mg UD PRN SL 12/31/17 07:30 12/31/17 07:47 0.4 MG Sodium Chloride 1,000 ml @ 0 mls/hr Q0M ONCE IV 12/31/17 07:53 12/31/17 07:54 DC 12/31/17 07:55 1,000 MLS/HR Vital Signs/I&O 12/31/17 07:16 Temp 97.9 Pulse 75 Resp 18 B/P (MAP) 164/83 (110) O2 Delivery Room Air Progress Note : Progress Note Seen and evaluated. IV, labs, EKG and chest x-ray ordered. ASA 324 mg by mouth ordered. Nitroglycerin sublingual ordered. Monitor patient. 0845: Labs are negative to this point. I discussed the case with Dr. Rebollar. He would like to see her in the office today of her labs remain negative. Repeat labs ordered. 1015: Patient has appointment at 11 a.m. EKG remained stable in no significant findings otherwise. Patient remains pain-free. Discharged home with return precautions. Patient verbalize understanding instructions and agreement with plan. Initial ECG Impression Date: Dec 31, 2017 Initial ECG Impression Time: 07:14 Initial ECG Rate: 87 Initial ECG Rhythm: Normal Sinus Initial ECG Comparisson: Unchanged Comment Sinus rhythm with leftward axis. No evidence of ST elevation DC. Similar to previous of 18 March 2016. Question of LVH that is also similar. Interpreted by me. EKG : EKG Time: 09:15 Rate: 63 Rhythm: Normal Sinus Comment Sinus rhythm with normal axis. Similar to previous done earlier today. No evidence of ST elevation DC. Interpreted by me. Diagonstic Imaging: Xray Plain Films/CT/US/NM/MRI: chest Comments NAME: ANITHA HDEZ [facility] REC#: [id number] PT STATUS: REG ER : 1955 PHYSICIAN: DEREK PEREA MD ADMIT DATE: 12/31/17/ER Draft Date of Exam:12/31/17 CHEST 1 VIEW, AP/PA ONLY PATIENT HISTORY: Chest tightness and tingling, cough. TECHNIQUE: Single frontal view of the chest COMPARISON: 11/13/2017 FINDINGS: Lung volumes are large. There is persistent right middle lobe opacity, likely atelectasis or scarring. There is a calcified granuloma in the left lung. No focal airspace opacity seen. There is mild cardiomegaly. No pneumothorax or pleural effusion is seen. No acute osseous abnormality is seen. IMPRESSION: 1. Persistent right middle lobe opacity, likely atelectasis or scarring. No new consolidation is seen. 2. Mild cardiomegaly. 3. Large lung volumes which can be seen with chronic obstructive disease. Dictated on workstation # [id number] Dict: 12/31/17 0746 Trans: 12/31/17 0752 [facility] [id number] Interpreted by: NOREEN HOFFMANN MD Electronically signed by: Departure Impression Primary Impression: Chest pain Qualified Codes: R07.9 - Chest pain, unspecified Disposition: 01 HOME, SELF-CARE Condition: Improved Departure-Patient Inst. Decision time for Depature: 10:17 Referrals: [facility]AR [facility] F[facility] JD CHAU MD (PCP/Family) Primary Care Physician Patient Instructions: Chest Pain (DC) Add. Discharge Instructions: All discharge instructions reviewed with patient and/or family. Voiced understanding. Follow-up with Dr. Rebollar in his office at 11 a.m. Return for worse pain, fever , vomiting, weakness, breathing problems or other concerns as needed. Copy Copies To 1: RICA REBOLLAR MD FACP [facility] Copies To 2: JD CHAU MD, TIMOTHY D MD Dec 31, 2017 07:47
--- NOTE | 2017-12-31 07:52 | Diagnostic Imaging Report ---
PATIENT HISTORY: Chest tightness and tingling, cough. TECHNIQUE: Single frontal view of the chest COMPARISON: 11/13/2017 FINDINGS: Lung volumes are large. There is persistent right middle lobe opacity, likely atelectasis or scarring. There is a calcified granuloma in the left lung. No focal airspace opacity seen. There is mild cardiomegaly. No pneumothorax or pleural effusion is seen. No acute osseous abnormality is seen. IMPRESSION: 1. Persistent right middle lobe opacity, likely atelectasis or scarring. No new consolidation is seen. 2. Mild cardiomegaly. 3. Large lung volumes which can be seen with chronic obstructive disease. Dictated by: Dictated on workstation # [id number]
[2017-12-31 07:53] LABS: ALANINE AMINOTRANSFERASE 20 U/L (0-55); ALBUMIN 4.5 GM/DL (3.2-4.5); ALKALINE PHOSPHATASE 56 U/L (40-136); BILIRUBIN,TOTAL 0.5 MG/DL (0.1-1.0); BUN/CREATININE RATIO 22; CALCIUM 10.8 MG/DL (8.5-10.1); CARBON DIOXIDE 24 MMOL/L (21-32); CHLORIDE 107 MMOL/L (98-107); CREATININE SERUM 0.86 MG/DL (0.60-1.30); GFR ESTIMATED > 60; GLUCOSE 117 MG/DL (70-105); MAGNESIUM 2.4 MG/DL (1.8-2.4); SODIUM 143 MMOL/L (135-145); TOTAL PROTEIN 7.5 GM/DL (6.4-8.2)
[2017-12-31] MEDS ORDERED: NS IV 1000 ML 1,000 ML IV ONE (07:53)
[2017-12-31 08:05] LABS: MYOGLOBIN SERUM 28.8 NG/ML (10.0-92.0)
[2017-12-31 09:52] LABS: MYOGLOBIN SERUM 32.4 NG/ML (10.0-92.0)
[2017-12-31 10:31] VITALS: BP 119/66
--- OUTSIDE RECORDS SUMMARY | 2018-01-01 09:07 | XMS REPORT | Encounter Summary ---
Author Author [facility] Organization [facility] Address Unknown Phone Unavailable Care Team Providers Care Labor Expediter Name Role Phone Chintan Dumont DO Unavailable Outpatient, Radiologist Unavailable Unavailable Daryl Macdonald MD PCP Mychart, Generic Provider Unavailable Unavailable Yarelis Beckwith PA-C Unavailable Tavia Gupta MD Unavailable Candi Pollock RN Unavailable Unavailable Daryl Hickey MD Unavailable Joaquin Cooper CRNA Unavailable Encounter Details Date Type Department Care Team Description 12/19/2017 [facility] Yarelis Beckwith PA-C Screening mammogram, Orders [place] [address] [place] [address] [address] [place] [address] [place] [address] [place] [address] [phone] Social History Tobacco Use Types Packs/Day Years [...]
--- OUTSIDE RECORDS SUMMARY | 2018-01-01 09:07 | XMS REPORT | Continuity of Care Document ---
Author Author [facility] Organization [facility] Address Unknown Phone Unavailable Care Team Providers Care Denial Management Representative Name Role Phone [employer] Unavailable Unavailable Problems Medications Allergies, Adverse Reactions, Alerts Immunizations Results Vital Signs Encounters Location Location Details Encounter Type Encounter Number Reason For Visit Attending Provider ADM Date DC Date Status Source [place] SERIES [id number] ROSA FOFANA 12/04/2016 12/04/2016 Active [facility] CA SERIES [id number] GINA DELGADO 06/10/2017 06/10/2017 Active [facility] OUTPATIENT [id number] ROSA FOFANA 12/19/2017 12/19/2017 Active [facility] OUTPATIENT [id number] ROSA FOFANA 12/19/2017 12/19/2017 Active [facility] O 01/02/2018 Active [facility] OUTPATIENT [id number] 01/02/2018 Active [facility] Procedures Plan of Care Social History Assessment and Plan Family History Advance Directives Functional Status
--- OUTSIDE RECORDS SUMMARY | 2018-01-01 09:07 | XMS REPORT | Clinical Summary ---
Author Author [facility] Organization [facility] Address Unknown Phone Unavailable Care Team Providers Care Custom Clothier Name Role Phone Chintan Dumont DO Unavailable [...] in the Health Information Management department at [phone] for further assistance in locating additional records.[facility] Allergies No Known Allergies Current Medications [...] She finished radiation with Dr. Carson in [place], [place] on 06/18/16. BREAST IMAGING: Mammogram: -- Bilateral screening mammogram 07/18/15 ([facility]) revealed heterogeneously dense breast tissue. In the far lateral aspect of the left breast, 10 cm FTN there was a group of pleomorphic calcifications. Left diagnostic mammogram recommended. -- Left diagnostic mammogram 07/31/15 ([facility]) revealed a slightly heterogeneous cluster of calcifications. 6 month follow up mammogram was recommended. -- Left diagnostic mammogram 01/29/16 ([facility]) revealed the calcifications in the posterior [...] Care Team Description 12/19/2017 Hospital Radiology Chintan Dumnot DO Encounter 12/19/2017 Office Visit Breast Clinic / [...]
--- OUTSIDE RECORDS SUMMARY | 2018-01-01 09:07 | XMS REPORT | Encounter Summary ---
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 Ms. Barriga underwent left RSL lumpectomy on 03/28/16. Final pathology revealed grade 3 DCIS; all margins greater than 1.5 cm. She finished radiation with Dr. Carson in [place], [place] on 06/18/16. BREAST IMAGING: Mammogram: -- Bilateral screening mammogram 07/18/15 ([facility]) revealed heterogeneously dense breast tissue. In the [...] Surgical History: Procedure Laterality Date COLONOSCOPY 2008 PA MASTECTOMY PARTIAL Left 03/28/2016 Left Bracketed Radioactive Seed Localized Lumpectomy performed by Chintan Dumont DO at [facility] OR/PERIOP SECTION 1984,1987,1991 Family History Problem [...]
--- OUTSIDE RECORDS SUMMARY | 2018-01-01 09:07 | XMS REPORT | Encounter Summary ---
Author Author [facility] Organization [facility] Address Unknown Phone Unavailable Care Team Providers Care Gluer And Wedger Name Role Phone Chintan Dumont DO Unavailable Outpatient, Radiologist Unavailable Unavailable Daryl Macdonald MD PCP Mychart, Generic Provider Unavailable Unavailable Yarelis Beckwith PA-C Unavailable Tavia Gupta MD Unavailable Candi Pollock RN Unavailable Unavailable Daryl Hickey MD Unavailable Joaquin Cooper CRNA Unavailable Encounter Details Date Type Department Care Team Description 12/19/2017 [facility] Chintan Dumont DO Encounter [place] [facility] [address] [place] [address] [place] [address] [phone] Social History Tobacco Use Types Packs/Day Years [...]
--- OUTSIDE RECORDS SUMMARY | 2018-01-01 09:09 | XMS REPORT | Continuity of Care Document ---
Author Author [facility] Address Unknown Phone Unavailable Allergies Active Description Code Type Severity Reaction Onset Reported/Identified Relationship to Patient Clinical Status Yes No Known Drug Allergies [id number] Drug Allergy Unknown N/A 12/24/2017 Medications There [...] COMPLICATION 04/16/2008 DEEPA VALDOVINOS APRN V06.1 DTP/Dtap, [id number] COMBINED 04/16/2008 ZOILA JO DO 729.81 SWELLING OF LIMB 04/16/2008 ZOILA JO DO 882.0 OPEN WOUND OF HAND EXCEPT FINGERS ALONE WITHOUT COMPLICATION 04/16/2008 ZOILA JO DO V06.1 DTP/Dtap, [id number] COMBINED 04/16/2008 DIANE CHAWLA APRN 729.81 SWELLING OF LIMB 04/16/2008 DIANE CHAWLA APRN 882.0 OPEN WOUND OF HAND EXCEPT FINGERS ALONE WITHOUT COMPLICATION 04/16/2008 DIANE CHAWLA APRN V06.1 DTP/Dtap, [id number] COMBINED 04/16/2008 LOVE PALMA APRN 729.81 SWELLING OF LIMB 04/16/2008 LOVE PALMA APRN 882.0 OPEN WOUND OF HAND EXCEPT FINGERS ALONE WITHOUT COMPLICATION 04/16/2008 LOVE PALMA APRN V06.1 DTP/Dtap, [id number] COMBINED 04/16/2008 ZOILA JO DO 729.81 SWELLING OF LIMB 04/16/2008 SANDRO BUSH ZOILA K 882.0 OPEN WOUND OF HAND EXCEPT FINGERS ALONE WITHOUT COMPLICATION 04/16/2008 FER JO DOA K V06.1 DTP/Dtap, [id number]-[id number] COMBINED 05/09/2010 DEEPA VALDOVINOS APRN R 719.40 [...] GILLISDIANE Santos 461.9 SINUSITIS ACUTE 12/14/2012 LOUIE [employer], LOVE L 461.9 SINUSITIS ACUTE 12/14/2012 FER JO DOA K 461.9 SINUSITIS ACUTE 06/30/2013 FER JO DOA K V04.81 FLU SHOT 06/30/2013 DIANE CHAWLA APRN V04.81 FLU SHOT 06/30/2013 MADL [employer], LOVE L V04.81 FLU SHOT 06/30/2013 JO DOFERA K V04.81 FLU SHOT 02/02/2014 MADL [employer], LOVE L 780.60 FEVER, UNSPECIFIED 02/02/2014 MADL [employer], LOVE L 780.79 OTHER MALAISE AND FATIGUE 02/02/2014 MADL [employer], LOVE L 786.2 COUGH 02/02/2014 JO DO, ZOILA K 780.60 FEVER, UNSPECIFIED 02/02/2014 JO DO, ZOIAL K 780.79 OTHER MALAISE AND FATIGUE 02/02/2014 [...] ABN AND INCONCLUSIVE FINDINGS ON DX 02/02/2016 DJ CHAU MD Ot R92.8 OTH ABN AND [...] LNG TRM (CRNT) USE OF SLCTV ESTROG LIVESTOCK FEEDER 08/01/2016 PARISH DOHERTY Ot Z79.899 OTHER CAR COUPLER (CURRENT) DRUG THERAPY 09/25/2016 PARISH DOHERTY Ot D05.12 INTRADUCTAL CARCINOMA IN SITU OF LEFT BR 09/25/2016 PARISH DOHERTY Ot E78.5 HYPERLIPIDEMIA, UNSPECIFIED 09/25/2016 PARISH DOHERTY Ot K21.9 GASTRO-ESOPHAGEAL REFLUX DISEASE WITHOUT 09/25/2016 PARISH DOHERTY Ot Z79.810 LNG TRM (CRNT) USE OF SLCTV ESTROG LIVESTOCK FEEDER 09/25/2016 PARISH DOHERTY Ot Z79.899 OTHER SHELTER (CURRENT) DRUG THERAPY 09/26/2016 PARISH DOHERTY Ot D05.12 INTRADUCTAL CARCINOMA IN SITU OF LEFT BR 09/26/2016 PARISH DOHERTY Ot E78.5 HYPERLIPIDEMIA, UNSPECIFIED 09/26/2016 PARISH DOHERTY N Ot K21.9 GASTRO-ESOPHAGEAL REFLUX DISEASE WITHOUT 09/26/2016 PARISH DOHERTY Ot Z79.810 LNG TRM (CRNT) USE OF SLCTV ESTROG LIVESTOCK FEEDER 09/26/2016 PARISH DOHERTY Ot Z79.899 OTHER SHELTER (CURRENT) DRUG THERAPY 10/01/2016 PARISH DOHERTY Ot D05.12 INTRADUCTAL CARCINOMA IN SITU OF LEFT BR 10/01/2016 PARISH DOHERTY N Ot E78.5 HYPERLIPIDEMIA, UNSPECIFIED 10/01/2016 PARISH DOHERTY N Ot K21.9 GASTRO-ESOPHAGEAL REFLUX DISEASE WITHOUT 10/01/2016 PARISH DOHERTY Ot Z79.810 LNG TRM (CRNT) USE OF SLCTV ESTROG LIVESTOCK FEEDER 10/01/2016 PARISH DOHERTY N Ot Z79.899 OTHER CAR COUPLER (CURRENT) DRUG THERAPY 01/24/2017 PARISH DOHERTY N Ot D05.12 INTRADUCTAL CARCINOMA IN SITU OF LEFT BR 01/24/2017 PARISH DOHERTY N Ot E78.5 HYPERLIPIDEMIA, UNSPECIFIED 01/24/2017 PARISH DOHERTY N Ot K21.9 GASTRO-ESOPHAGEAL REFLUX DISEASE WITHOUT 01/24/2017 PARISH DOHERTY N Ot Z79.810 LNG TRM (CRNT) USE OF SLCTV ESTROG LIVESTOCK FEEDER 01/24/2017 PARISH DOHERTY N Ot Z79.899 OTHER CAR COUPLER (CURRENT) DRUG THERAPY 03/05/2017 PARISH DOHERTY Ot D05.12 INTRADUCTAL CARCINOMA IN SITU OF LEFT BR 03/05/2017 PARISH DOHERTY N Ot E78.5 HYPERLIPIDEMIA, UNSPECIFIED 03/05/2017 PARISH DOHERTY N Ot K21.9 GASTRO-ESOPHAGEAL REFLUX DISEASE WITHOUT 03/05/2017 PARISH DOHERTY N Ot Z79.810 LNG TRM (CRNT) USE OF SLCTV ESTROG LIVESTOCK FEEDER 03/05/2017 PARISH DOHERTY N Ot Z79.899 OTHER CAR COUPLER (CURRENT) DRUG THERAPY 04/23/2017 PARISH DOHERTY N Ot D05.12 INTRADUCTAL CARCINOMA IN SITU OF LEFT BR 04/23/2017 PARISH DOHERTY N Ot E78.5 HYPERLIPIDEMIA, UNSPECIFIED 04/23/2017 PARISH DOHERTY N Ot K21.9 GASTRO-ESOPHAGEAL REFLUX DISEASE WITHOUT 04/23/2017 PARISH DOHERTY N Ot Z79.810 LNG TRM (CRNT) USE OF SLCTV ESTROG LIVESTOCK FEEDER 04/23/2017 PARISH DOHERTY N Ot Z79.899 OTHER SHELTER (CURRENT) DRUG THERAPY 08/26/2017 Ot V76.12 OTH [...] LNG TRM (CRNT) USE OF SLCTV ESTROG LIVESTOCK FEEDER 08/27/2017 PARISH DOHERTY N Ot Z79.899 OTHER SHELTER (CURRENT) DRUG THERAPY 10/01/2017 PARISH DOHERTY Ot D05.12 INTRADUCTAL CARCINOMA IN SITU OF LEFT BR 10/01/2017 PARISH DOHERTY Ot E78.5 HYPERLIPIDEMIA, UNSPECIFIED 10/01/2017 PARISH DOHERTY Ot K21.9 GASTRO-ESOPHAGEAL REFLUX DISEASE WITHOUT 10/01/2017 PARISH DOHERTY Ot Z79.810 LNG TRM (CRNT) USE OF SLCTV ESTROG LIVESTOCK FEEDER 10/01/2017 PARISH DOHERTY N Ot Z79.899 OTHER CAR COUPLER (CURRENT) DRUG THERAPY 11/14/2017 JD CHAU MD [...] LNG TRM (CRNT) USE OF SLCTV ESTROG LIVESTOCK FEEDER 11/18/2017 CHAS PARISH Santos Ot Z79.899 OTHER SHELTER (CURRENT) DRUG THERAPY 11/18/2017 JD CHAU MD, [...] LNG TRM (CRNT) USE OF SLCTV ESTROG LIVESTOCK FEEDER 11/24/2017 PARISH DOHERTY Ot Z79.899 OTHER SHELTER (CURRENT) DRUG THERAPY 11/24/2017 JD CHAU MD, Ot J84.10 PULMONARY FIBROSIS, UNSPECIFIED 11/24/2017 JD CHUA MD, Ot Z98.890 OTHER SPECIFIED POSTPROCEDURAL STATES 11/28/2017 JD CHAU MD, Ot J84.10 PULMONARY FIBROSIS, UNSPECIFIED 11/28/2017 JD CHAU MD, Ot Z98.890 OTHER SPECIFIED POSTPROCEDURAL STATES 12/01/2017 JD CHAU MD, Ot J84.10 PULMONARY FIBROSIS, UNSPECIFIED 12/01/2017 ISAC MD, JD D Ot Z98.890 OTHER SPECIFIED POSTPROCEDURAL STATES 12/05/2017 [...] ENCOUNTER FOR SCREENING FOR MALIGNANT NE 12/24/2017 CHAS, ROSMERYNAIN Danielle Ot D05.12 INTRADUCTAL CARCINOMA IN SITU OF LEFT BR 12/24/2017 CHAS ROSMERYNAIN N Ot E78.5 HYPERLIPIDEMIA, UNSPECIFIED 12/24/2017 CHAS ROSMERYNAIN N Ot K21.9 GASTRO-ESOPHAGEAL REFLUX DISEASE WITHOUT 12/24/2017 PARISH DOHERTY N Ot Z79.810 LNG TRM (CRNT) USE OF SLCTV ESTROG LIVESTOCK FEEDER 12/24/2017 CHAS, PARISH Santos Ot Z79.899 OTHER CAR COUPLER (CURRENT) DRUG THERAPY 12/26/2017 AVTAR MAYO MD Ot Z01.818 ENCOUNTER FOR OTHER PREPROCEDURAL EXAMIN 12/26/2017 AVTAR MAYO MD Ot Z12.11 ENCOUNTER FOR SCREENING FOR MALIGNANT NE 12/30/2017 AVTAR MAYO MD Ot Z01.818 ENCOUNTER FOR OTHER PREPROCEDURAL EXAMIN 12/30/2017 AVTAR MAYO MD Ot Z12.11 ENCOUNTER FOR SCREENING FOR MALIGNANT NE 12/30/2017 AVTAR MAYO MD Ot D05.12 INTRADUCTAL CARCINOMA IN SITU OF LEFT BR 12/30/2017 AVTAR MAYO MD Ot E78.5 HYPERLIPIDEMIA, UNSPECIFIED 12/30/2017 AVTAR MAYO MD Ot Z12.11 ENCOUNTER FOR SCREENING FOR MALIGNANT NE 12/30/2017 AVTAR MAYO MD Ot Z79.810 LNG TRM (CRNT) USE OF SLCTV ESTROG LIVESTOCK FEEDER 12/30/2017 AVTAR MAYO MD Ot Z79.899 OTHER SHELTER (CURRENT) DRUG THERAPY 12/31/2017 Ot V76.12 OTH SCREEN MAMMO-MALIGN NEOPLASM OF KOBE 12/31/2017 JD CHAU MD, Ot V76.12 OTH SCREEN MAMMO-MALIGN NEOPLASM OF KOBE 12/31/2017 JD CHAU MD Ot Z12.31 ENCNTR SCREEN MAMMOGRAM FOR MALIGNANT NE 12/31/2017 JD CHAU MD, Ot R92.8 OTH ABN AND INCONCLUSIVE FINDINGS ON DX 12/31/2017 JD CHAU MD, Ot R92.8 OTH ABN AND INCONCLUSIVE FINDINGS ON DX 12/31/2017 JD CHAU MD Ot D05.12 INTRADUCTAL CARCINOMA IN SITU OF LEFT BR 12/31/2017 ROSA FOFANA DO Ot Z01.810 ENCOUNTER FOR PREPROCEDURAL CARDIOVASCUL 12/31/2017 DJ CHAU MD Ot J84.10 PULMONARY FIBROSIS, UNSPECIFIED 12/31/2017 JD CHAU MD Ot Z98.890 OTHER SPECIFIED POSTPROCEDURAL STATES 12/31/2017 JD CHAU MD Ot R00.2 PALPITATIONS 12/31/2017 PARISH DOHERTY Ot D05.12 INTRADUCTAL CARCINOMA IN SITU OF LEFT BR 12/31/2017 PARISH DOHERTY Ot E78.5 HYPERLIPIDEMIA, UNSPECIFIED 12/31/2017 PARISH DOHERTY Ot K21.9 GASTRO-ESOPHAGEAL REFLUX DISEASE WITHOUT 12/31/2017 PARISH DOEHRTY Ot Z79.810 LNG TRM (CRNT) USE OF SLCTV ESTROG LIVESTOCK FEEDER 12/31/2017 PARISH DOHERTY Ot Z79.899 OTHER CAR COUPLER (CURRENT) DRUG THERAPY 12/31/2017 AVTAR MAYO MD Ot D05.12 INTRADUCTAL CARCINOMA IN SITU OF LEFT BR 12/31/2017 AVTAR MAYO MD, Ot E78.5 HYPERLIPIDEMIA, UNSPECIFIED 12/31/2017 AVTAR MAYO MD Ot Z12.11 ENCOUNTER FOR SCREENING FOR MALIGNANT NE 12/31/2017 AVTAR MAYO MD Ot Z79.810 LNG TRM (CRNT) USE OF SLCTV ESTROG LIVESTOCK FEEDER 12/31/2017 AVTAR MAYO MD Ot Z79.899 OTHER CAR COUPLER (CURRENT) DRUG THERAPY 12/31/2017 Ot V76.12 OTH SCREEN MAMMO-MALIGN NEOPLASM OF KOBE 12/31/2017 JD CHAU MD Ot V76.12 OTH SCREEN MAMMO-MALIGN NEOPLASM OF KOBE 12/31/2017 JD CHAU MD Ot Z12.31 ENCNTR SCREEN MAMMOGRAM FOR MALIGNANT NE 12/31/2017 JD CHAU MD, Ot R92.8 OTH ABN AND INCONCLUSIVE FINDINGS ON DX 12/31/2017 JD CHAU MD, Ot R92.8 OTH ABN AND INCONCLUSIVE FINDINGS ON DX 12/31/2017 JD CHAU MD Ot D05.12 INTRADUCTAL CARCINOMA IN SITU OF LEFT BR 12/31/2017 ROSA FOFANA DO Ot Z01.810 ENCOUNTER FOR PREPROCEDURAL CARDIOVASCUL 12/31/2017 JD CHAU MD Ot J84.10 PULMONARY FIBROSIS, UNSPECIFIED 12/31/2017 JD CHAU MD Ot Z98.890 OTHER SPECIFIED POSTPROCEDURAL STATES 12/31/2017 JD CHAU MD Ot R00.2 PALPITATIONS 12/31/2017 CHASPARISH ROCHA Danielle Ot D05.12 INTRADUCTAL CARCINOMA IN SITU OF LEFT BR 12/31/2017 PARISH DOHERTY Danielle Ot E78.5 HYPERLIPIDEMIA, UNSPECIFIED 12/31/2017 PARISH DOHERYT Danielle Ot K21.9 GASTRO-ESOPHAGEAL REFLUX DISEASE WITHOUT 12/31/2017 CHASPARISH ROCHA Danielle Ot Z79.810 LNG TRM (CRNT) USE OF SLCTV ESTROG LIVESTOCK FEEDER 12/31/2017 CHAS ROSMERYNAIN Danielle Ot Z79.899 OTHER CAR COUPLER (CURRENT) DRUG THERAPY 12/31/2017 AVTAR MAYO MD Ot D05.12 INTRADUCTAL CARCINOMA IN SITU OF LEFT BR 12/31/2017 AVTAR MAYO MD Ot E78.5 HYPERLIPIDEMIA, UNSPECIFIED 12/31/2017 AVTAR MAYO MD Ot Z12.11 ENCOUNTER FOR SCREENING FOR MALIGNANT NE 12/31/2017 AVTAR MAYO MD Ot Z79.810 LNG TRM (CRNT) USE OF SLCTV ESTROG LIVESTOCK FEEDER 12/31/2017 AVTAR MAYO MD Ot Z79.899 OTHER SHELTER (CURRENT) DRUG THERAPY 12/31/2017 Ot V76.12 OTH SCREEN MAMMO-MALIGN NEOPLASM OF KOBE 12/31/2017 JD CHAU MD, Ot V76.12 OTH SCREEN MAMMO-MALIGN NEOPLASM OF KOBE 12/31/2017 JD CHAU MD Ot Z12.31 ENCNTR SCREEN MAMMOGRAM FOR MALIGNANT NE 12/31/2017 JD CHAU MD Ot R92.8 OTH ABN AND INCONCLUSIVE FINDINGS ON DX 12/31/2017 JD CHAU MD, Ot R92.8 OTH ABN AND INCONCLUSIVE FINDINGS ON DX 12/31/2017 JD CHAU MD Ot D05.12 INTRADUCTAL CARCINOMA IN SITU OF LEFT BR 12/31/2017 CT BUSH ROSA L Ot Z01.810 ENCOUNTER FOR PREPROCEDURAL CARDIOVASCUL 12/31/2017 JD CHAU MD Ot J84.10 PULMONARY FIBROSIS, UNSPECIFIED 12/31/2017 JD CHAU MD Ot Z98.890 OTHER SPECIFIED POSTPROCEDURAL STATES 12/31/2017 JD CHAU MD Ot R00.2 PALPITATIONS 12/31/2017 PARISH DOHERTY Ot D05.12 INTRADUCTAL CARCINOMA IN SITU OF LEFT BR 12/31/2017 PARISH DOHERTY Ot E78.5 HYPERLIPIDEMIA, UNSPECIFIED 12/31/2017 PARISH DOHERTY Ot K21.9 GASTRO-ESOPHAGEAL REFLUX DISEASE WITHOUT 12/31/2017 PARISH DOHERTY Ot Z79.810 LNG TRM (CRNT) USE OF SLCTV ESTROG LIVESTOCK FEEDER 12/31/2017 PARISH DOHERTY Ot Z79.899 OTHER CAR COUPLER (CURRENT) DRUG THERAPY 12/31/2017 AVTAR MAYO MD Ot D05.12 INTRADUCTAL CARCINOMA IN SITU OF LEFT BR 12/31/2017 AVTAR MAYO MD Ot E78.5 HYPERLIPIDEMIA, UNSPECIFIED 12/31/2017 AVTAR MAYO MD Ot Z12.11 ENCOUNTER FOR SCREENING FOR MALIGNANT NE 12/31/2017 AVTAR MAYO MD Ot Z79.810 LNG TRM (CRNT) USE OF SLCTV ESTROG LIVESTOCK FEEDER 12/31/2017 AVTAR MAYO MD Ot Z79.899 OTHER SHELTER (CURRENT) DRUG THERAPY 12/31/2017 Ot V76.12 OTH SCREEN MAMMO-MALIGN NEOPLASM OF KOBE 12/31/2017 JD CHAU MD Ot V76.12 OTH SCREEN MAMMO-MALIGN NEOPLASM OF KOBE 12/31/2017 JD CHAU MD Ot Z12.31 ENCNTR SCREEN MAMMOGRAM FOR MALIGNANT NE 12/31/2017 JD CHAU MD, Ot R92.8 OTH ABN AND INCONCLUSIVE FINDINGS ON DX 12/31/2017 JD CHAU MD, Ot R92.8 OTH ABN AND INCONCLUSIVE FINDINGS ON DX 12/31/2017 JD CHAU MD, Ot D05.12 INTRADUCTAL CARCINOMA IN SITU OF LEFT BR 12/31/2017 FOFANA ROSA BUSH Ot Z01.810 ENCOUNTER FOR PREPROCEDURAL CARDIOVASCUL 12/31/2017 JD CHAU MD Ot J84.10 PULMONARY FIBROSIS, UNSPECIFIED 12/31/2017 JD CHAU MD, Ot Z98.890 OTHER SPECIFIED POSTPROCEDURAL STATES 12/31/2017 JD CHAU MD, Ot R00.2 PALPITATIONS 12/31/2017 PARISH DOHERTY Ot D05.12 INTRADUCTAL CARCINOMA IN SITU OF LEFT BR 12/31/2017 PARISH DOHERTY Ot E78.5 HYPERLIPIDEMIA, UNSPECIFIED 12/31/2017 PARISH DOHERTY Ot K21.9 GASTRO-ESOPHAGEAL REFLUX DISEASE WITHOUT 12/31/2017 PARISH DOHERTY Ot Z79.810 LNG TRM (CRNT) USE OF SLCTV ESTROG LIVESTOCK FEEDER 12/31/2017 PARISH DOHERTY Ot Z79.899 OTHER CAR COUPLER (CURRENT) DRUG THERAPY 12/31/2017 AVTAR MAYO MD Ot D05.12 INTRADUCTAL CARCINOMA IN SITU OF LEFT BR 12/31/2017 AVTAR MAYO MD Ot E78.5 HYPERLIPIDEMIA, UNSPECIFIED 12/31/2017 AVTAR MAYO MD Ot Z12.11 ENCOUNTER FOR SCREENING FOR MALIGNANT NE 12/31/2017 AVTAR MAYO MD Ot Z79.810 LNG TRM (CRNT) USE OF SLCTV ESTROG LIVESTOCK FEEDER 12/31/2017 AVTAR MAYO MD Ot Z79.899 OTHER SHELTER (CURRENT) DRUG THERAPY 12/31/2017 Ot V76.12 OTH SCREEN MAMMO-MALIGN NEOPLASM OF KOBE 12/31/2017 JD CHAU MD Ot V76.12 OTH SCREEN MAMMO-MALIGN NEOPLASM OF KOBE 12/31/2017 JD CHAU MD Ot Z12.31 ENCNTR SCREEN MAMMOGRAM FOR MALIGNANT NE 12/31/2017 JD CHAU MD, Ot R92.8 OTH ABN AND INCONCLUSIVE FINDINGS ON DX 12/31/2017 JD CHAU MD, Ot R92.8 OTH ABN AND INCONCLUSIVE FINDINGS ON DX 12/31/2017 JD CHAU MD, Ot D05.12 INTRADUCTAL CARCINOMA IN SITU OF LEFT BR 12/31/2017 CT ROSA BUSH Ot Z01.810 ENCOUNTER FOR PREPROCEDURAL CARDIOVASCUL 12/31/2017 JD CHAU MD, Ot J84.10 PULMONARY FIBROSIS, UNSPECIFIED 12/31/2017 JD CHAU MD, Ot Z98.890 OTHER SPECIFIED POSTPROCEDURAL STATES 12/31/2017 JD CHAU MD Ot R00.2 PALPITATIONS 12/31/2017 CHASPARISH ROCHA Danielle Ot D05.12 INTRADUCTAL CARCINOMA IN SITU OF LEFT BR 12/31/2017 PARISH DOHERTY Danielle Ot E78.5 HYPERLIPIDEMIA, UNSPECIFIED 12/31/2017 PARISH DOHERTY Danielle Ot K21.9 GASTRO-ESOPHAGEAL REFLUX DISEASE WITHOUT 12/31/2017 CHASPARISH ROCHA Danielle Ot Z79.810 LNG TRM (CRNT) USE OF SLCTV ESTROG LIVESTOCK FEEDER 12/31/2017 CHASPARISH ROCHA Danielle Ot Z79.899 OTHER CAR COUPLER (CURRENT) DRUG THERAPY 12/31/2017 AVTAR MAYO MD Ot D05.12 INTRADUCTAL CARCINOMA IN SITU OF LEFT BR 12/31/2017 AVTAR MAYO MD, Ot E78.5 HYPERLIPIDEMIA, UNSPECIFIED 12/31/2017 AVTAR MAYO MD Ot Z12.11 ENCOUNTER FOR SCREENING FOR MALIGNANT NE 12/31/2017 AVTAR MAYO MD Ot Z79.810 LNG TRM (CRNT) USE OF SLCTV ESTROG LIVESTOCK FEEDER 12/31/2017 AVTAR MAYO MD Ot Z79.899 OTHER SHELTER (CURRENT) DRUG THERAPY 12/31/2017 AVTAR MAYO MD Ot D05.12 INTRADUCTAL CARCINOMA IN SITU OF LEFT BR 12/31/2017 AVTAR MAYO MD, Ot E78.5 HYPERLIPIDEMIA, UNSPECIFIED 12/31/2017 AVTAR MAYO MD Ot Z12.11 ENCOUNTER FOR SCREENING FOR MALIGNANT NE 12/31/2017 AVTAR MAYO MD, Ot Z79.810 LNG TRM (CRNT) USE OF SLCTV ESTROG LIVESTOCK FEEDER 12/31/2017 AVTAR MAYO MD Ot Z79.899 OTHER CAR COUPLER (CURRENT) DRUG THERAPY Procedures There is no data. Results Test Result Range Complete blood count (CBC) with automated white blood cell (WBC) differential - 12/31/17 07:20 Blood leukocytes automated count (number/volume) 6.5 10*3/uL 4.3-11.0 Blood erythrocytes automated count (number/volume) 4.64 10*6/uL 4.35-5.85 Venous blood hemoglobin measurement (mass/volume) 13.7 g/dL 11.5-16.0 Blood hematocrit (volume fraction) 42 % 35-52 Automated erythrocyte mean corpuscular volume 89 [foz_us] 80-99 Automated erythrocyte mean corpuscular hemoglobin (mass per erythrocyte) 30 pg 25-34 Automated erythrocyte mean corpuscular hemoglobin concentration measurement ( mass/volume) 33 g/dL 32-36 Automated erythrocyte distribution width ratio 13.5 % 10.0-14.5 Automated blood platelet count (count/volume) 225 10*3/uL 130-400 Automated blood platelet mean volume measurement 11.5 [foz_us] 7.4-10.4 Automated blood neutrophils/100 leukocytes 57 % 42-75 Automated blood lymphocytes/100 leukocytes 34 % 12-44 Blood monocytes/100 leukocytes 7 % 0-12 Automated blood eosinophils/100 leukocytes 2 % 0-10 Automated blood basophils/100 leukocytes 0 % 0-10 Blood neutrophils automated count (number/volume) 3.7 10*3 1.8-7.8 Blood lymphocytes automated count (number/volume) 2.2 10*3 1.0-4.0 Blood monocytes automated count (number/volume) 0.4 10*3 0.0-1.0 Automated eosinophil count 0.1 10*3/uL 0.0-0.3 Automated blood basophil count (count/volume) 0.0 10*3/uL 0.0-0.1 PT panel in platelet poor plasma by coagulation assay - 12/31/17 07:20 Prothrombin time (PT) in platelet poor plasma by coagulation assay 13.4 s 12.2-14.7 INR in platelet poor plasma or blood by coagulation assay 1.0 0.8-1.4 Activated partial thromboplastin time (aPTT) in platelet poor plasma bycoagulation assay - 12/31/17 07:20 Activated partial thromboplastin time (aPTT) in platelet poor plasma bycoagulation assay 28 s 24-35 Fibrin D-dimer FEU measurement in platelet poor plasma (mass/volume) - 07:20 Fibrin D-dimer FEU measurement in platelet poor plasma (mass/volume) 0.31 ug/mL 0.00-0.49 Comprehensive metabolic panel - 12/31/17 07:20 Serum or plasma sodium measurement (moles/volume) 143 mmol/L 135-145 Serum or plasma potassium measurement (moles/volume) 4.0 mmol/L 3.6-5.0 Serum or plasma chloride measurement (moles/volume) 107 mmol/L 98-107 Carbon dioxide 24 mmol/L 21-32 Serum or plasma anion gap determination (moles/volume) 12 mmol/L 5-14 Serum or plasma urea nitrogen measurement (mass/volume) 19 mg/dL 7-18 Serum or plasma creatinine measurement (mass/volume) 0.86 mg/dL 0.60-1.30 Serum or plasma urea nitrogen/creatinine mass ratio 22 NRG Serum or plasma creatinine measurement with calculation of estimated glomerular filtration rate > NRG Serum or plasma glucose measurement (mass/volume) 117 mg/dL 70-105 Serum or plasma calcium measurement (mass/volume) 10.8 mg/dL 8.5-10.1 Serum or plasma total bilirubin measurement (mass/volume) 0.5 mg/dL 0.1-1.0 Serum or plasma alkaline phosphatase measurement (enzymatic activity/volume) 56 U/L 40-136 Serum or plasma aspartate aminotransferase measurement (enzymatic activity/ volume) 20 U/L 5-34 Serum or plasma alanine aminotransferase measurement (enzymatic activity/volume ) 20 U/L 0-55 Serum or plasma protein measurement (mass/volume) 7.5 g/dL 6.4-8.2 Serum or plasma albumin measurement (mass/volume) 4.5 g/dL 3.2-4.5 Magnesium - 12/31/17 07:20 Magnesium 2.4 mg/dL 1.8-2.4 Serum or plasma troponin i.cardiac measurement (mass/volume) - 12/31/17 07:20 Serum or plasma troponin i.cardiac measurement (mass/volume) < ng/ mL <0.30 Myoglobin, serum - 12/31/17 07:20 Myoglobin, serum 28.8 ng/mL 10.0-92.0 Serum or plasma troponin i.cardiac measurement (mass/volume) - 12/31/17 09:25 Serum or plasma troponin i.cardiac measurement (mass/volume) < ng/ mL <0.30 Myoglobin, serum - 12/31/17 09:25 Myoglobin, serum 32.4 ng/mL 10.0-92.0 Encounters ACCT No. Visit Date/Time Discharge Status Pt. Type Provider Facility Loc./Unit Complaint [id number] 06/29/2014 13:31:00 06/29/2014 23:59:59 CLS Outpatient ZOILA JO DO [id number] 02/17/2014 09:38:00 02/17/2014 23:59:59 CLS Outpatient LOVE PALMA APRN [id number] 12/31/2013 10:35:00 12/31/2013 23:59:59 CLS Outpatient DIANE CHAWLA APRN [id number] 06/30/2013 17:41:00 06/30/2013 23:59:59 CLS Outpatient ZOILA JO DO [id number] 12/14/2012 11:57:00 12/14/2012 23:59:59 CLS Outpatient DEEPA VALDOVINOS APRN [id number] 08/15/2017 11:40:00 08/15/2017 23:59:59 CLS Outpatient TAJ CONROY APRN [facility] [id number] 12/31/2017 07:16:00 12/31/2017 10:31:00 DIS Emergency DEREK PEREA MD Via [facility] ER CHEST TIGHTNESS, TINGLING IN HANDS [id number] 12/26/2017 07:32:00 12/26/2017 23:59:59 CLS Outpatient AVTAR MAYO MD [facility] ENDO SCREENING [id number] 12/24/2017 10:15:00 12/24/2017 10:58:00 DIS Outpatient ATVAR MAYO MD [facility] PREOP COLONOSCOPY [id number] 11/25/2017 00:13:00 11/25/2017 23:59:59 CLS Preadmit PARISH DOHERTY Via [facility] ONC [id number] 08/26/2017 10:57:00 11/24/2017 00:01:00 DIS Outpatient PARISH DOHERTY Via [facility] ONC [id number] 11/18/2017 09:50:00 11/18/2017 23:59:59 CLS Outpatient JD CHAU MD [facility] CARD PALPITATIONS [id number] 11/13/2017 15:28:00 11/13/2017 23:59:59 CLS Outpatient JD CHAU MD [facility] RAD COUGH [id number] 01/23/2017 12:44:00 04/23/2017 00:01:00 DIS Outpatient PARISH DOHERTY N [facility] ONC [id number] 07/30/2016 13:54:00 09/25/2016 00:01:00 DIS Outpatient PARISH DOHERTY Danielle [facility] ONC [id number] 06/18/2016 07:57:00 06/24/2016 10:56:00 DIS Outpatient PARISH DOHERTY Danielle Via [facility] ONC [id number] 05/23/2016 13:49:00 05/23/2016 23:59:59 CLS Preadmit ASPEN SIDDIQUI [facility] ONC [id number] 03/18/2016 09:32:00 03/18/2016 23:59:59 CLS Outpatient ROSA FOFANA DO [facility] CARD [id number] 02/01/2016 09:59:00 02/01/2016 23:59:59 CLS Outpatient JD CHAU MD [facility] RAD CALCIFICATIONS [id number] 01/29/2016 07:40:00 01/29/2016 23:59:59 CLS Outpatient JD CHAU MD [facility] RAD ABNORMAL LEFT MAMMO [id number] 07/31/2015 14:14:00 07/31/2015 23:59:59 CLS Outpatient JD CHAU MD [facility] RAD ABN MAMMO [id number] 07/18/2015 10:56:00 07/18/2015 23:59:59 CLS Outpatient JD CHAU MD [facility] RAD SCREENING [id number] 10/19/2013 07:36:00 10/19/2013 23:59:59 [facility] Outpatient ISAC PITT, JD Morris [facility] RAD SCREENING [id number] 08/25/2012 07:24:00 Document Registration [id number] 07/11/2011 07:39:00 Document Registration [id number] 10/26/2010 08:55:00 Document Registration
== END 2017-12-31 10:31 | disposition home or self-care (01) ==
LOC: EDUNIT# 07:15 → ER 07:16
DX: R07.89 Other chest pain (principal); E78.00 Pure hypercholesterolemia, unspecified; Z85.3 Personal history of malignant neoplasm of breast
CPT/HCPCS: 36415; 71045; 80053; 83735; 83874; 84484; 85025; 85379; 85610; 85730; 93005; 93041

== ENCOUNTER → 2018-01-26 | Outpatient (CLI) | payer BC | LOC: CARD 09:56 | PROVIDERS: ATTEND Internal Medicine Cardiovascular Disease | DX: R07.89 Other chest pain (principal); E78.5 Hyperlipidemia, unspecified; D05.12 Intraductal carcinoma in situ of left breast; I08.1 Rheumatic disorders of both mitral and tricuspid valves | CPT/HCPCS: 93306 ==

== ENCOUNTER 2018-02-23 13:07 | Outpatient (RCR) | payer BC ==
[2018-02-23 13:20] LABS: BASOPHILS % (AUTO) 0 % (0-10); EOSINOPHILS # (AUTO) 0.1 10^3/uL (0.0-0.3); EOSINOPHILS % (AUTO) 2 % (0-10); HEMATOCRIT 38 % (35-52); HEMOGLOBIN 12.6 G/DL (11.5-16.0); LYMPHOCYTES % (AUTO) 34 % (12-44); MEAN CORPUSCULAR HEMOGLOBIN 31 PG (25-34); MEAN CORPUSCULAR HGB CONC 34 G/DL (32-36); MEAN CORPUSCULAR VOLUME 92 FL (80-99); MEAN PLATELET VOLUME 11.7 FL (7.4-10.4); MONOCYTES # (AUTO) 0.6 X 10^3 (0.0-1.0); MONOCYTES % (AUTO) 10 % (0-12); NEUTROPHILS # (AUTO) 3.2 X 10^3 (1.8-7.8); NEUTROPHILS % (AUTO) 54 % (42-75); PLATELET COUNT 184 10^3/uL (130-400); RED BLOOD COUNT 4.09 10^6/uL (4.35-5.85); RED CELL DISTRIBUTION WIDTH 14.3 % (10.0-14.5); WHITE BLOOD COUNT 5.9 10^3/uL (4.3-11.0)
[2018-02-23 13:40] LABS: ALANINE AMINOTRANSFERASE 17 U/L (0-55); ALBUMIN 4.1 GM/DL (3.2-4.5); ALKALINE PHOSPHATASE 55 U/L (40-136); BILIRUBIN,TOTAL 0.4 MG/DL (0.1-1.0); BUN/CREATININE RATIO 24; CARBON DIOXIDE 27 MMOL/L (21-32); CHLORIDE 108 MMOL/L (98-107); CREATININE SERUM 0.68 MG/DL (0.60-1.30); GFR ESTIMATED > 60; GLUCOSE 83 MG/DL (70-105); POTASSIUM 4.2 MMOL/L (3.6-5.0); SODIUM 142 MMOL/L (135-145); TOTAL PROTEIN 6.8 GM/DL (6.4-8.2)
== END 2018-05-24 | disposition home or self-care (01) ==
LOC: ONC 13:07
PROVIDERS: ATTEND Internal Medicine Hematology & Oncology
DX: D05.12 Intraductal carcinoma in situ of left breast (principal); E78.5 Hyperlipidemia, unspecified; K21.9 Gastro-esophageal reflux disease without esophagitis; Z79.810 Long term (current) use of selective estrogen receptor modulators (SERMs); Z79.899 Other long term (current) drug therapy
CPT/HCPCS: 36415; 80053; 85025; 99213

== ENCOUNTER → 2018-08-24 | Outpatient (CLI) | payer BC ==
[2018-08-24 13:33] LABS: BASOPHILS % (AUTO) 1 % (0-10); EOSINOPHILS # (AUTO) 0.1 10^3/uL (0.0-0.3); EOSINOPHILS % (AUTO) 1 % (0-10); HEMATOCRIT 39 % (35-52); HEMOGLOBIN 12.6 G/DL (11.5-16.0); LYMPHOCYTES # (AUTO) 1.9 X 10^3 (1.0-4.0); LYMPHOCYTES % (AUTO) 32 % (12-44); MEAN CORPUSCULAR HEMOGLOBIN 29 PG (25-34); MEAN CORPUSCULAR HGB CONC 32 G/DL (32-36); MEAN CORPUSCULAR VOLUME 91 FL (80-99); MEAN PLATELET VOLUME 11.6 FL (7.4-10.4); MONOCYTES # (AUTO) 0.5 X 10^3 (0.0-1.0); MONOCYTES % (AUTO) 8 % (0-12); NEUTROPHILS # (AUTO) 3.6 X 10^3 (1.8-7.8); NEUTROPHILS % (AUTO) 59 % (42-75); PLATELET COUNT 169 10^3/uL (130-400); RED CELL DISTRIBUTION WIDTH 13.6 % (10.0-14.5); WHITE BLOOD COUNT 6.1 10^3/uL (4.3-11.0)
[2018-08-24 13:51] LABS: ALANINE AMINOTRANSFERASE 17 U/L (0-55); ALBUMIN 4.1 GM/DL (3.2-4.5); ALKALINE PHOSPHATASE 59 U/L (40-136); BILIRUBIN,TOTAL 0.4 MG/DL (0.1-1.0); BUN/CREATININE RATIO 24; CALCIUM 9.9 MG/DL (8.5-10.1); CARBON DIOXIDE 26 MMOL/L (21-32); CHLORIDE 105 MMOL/L (98-107); CREATININE SERUM 0.68 MG/DL (0.60-1.30); GFR ESTIMATED > 60; GLUCOSE 95 MG/DL (70-105); POTASSIUM 3.7 MMOL/L (3.6-5.0); SODIUM 140 MMOL/L (135-145); TOTAL PROTEIN 6.7 GM/DL (6.4-8.2)
== END ==
LOC: EDSTATUS 05-25 13:12 → ONC 13:13
PROVIDERS: ATTEND Internal Medicine Hematology & Oncology
DX: D05.12 Intraductal carcinoma in situ of left breast (principal); E78.5 Hyperlipidemia, unspecified; K21.9 Gastro-esophageal reflux disease without esophagitis; Z79.810 Long term (current) use of selective estrogen receptor modulators (SERMs); Z79.899 Other long term (current) drug therapy
CPT/HCPCS: 36415; 80053; 85025; 99213

== ENCOUNTER → 2018-09-24 | Outpatient (CLI) | payer BC ==
--- NOTE | 2018-09-24 11:32 | Diagnostic Imaging Report ---
INDICATION: Postmenopausal screening for osteoporosis. COMPARISON: None. FINDINGS: AP Spine L1-L4: [BMD (g/cm2): 0.799] [T-Score: -3.3] [Z-Score: -1.9] [BMD Previous: na] [BMD % Change: na] LT Hip Neck: [BMD (g/cm2): 0.788] [T-Score: -1.8] [Z-Score: -0.4] LT Hip Total: [BMD (g/cm2):0.830] [T-Score:-1.4] [Z-Score: -0.3] [BMD Previous: na] [BMD % Change: na] RT Hip Neck: [BMD (g/cm2):0.740] [T-Score:-2.1] [Z-Score:-0.8] RT Hip Total: [BMD (g/cm2):0.856] [T-score:-1.2] [Z-Score:-0.1] [BMD Previous:na] [BMD % Change:na] *Indicates significant change from prior examination based on 95% confidence level. World Health Organization criteria for BMD interpretation classify patients as Normal (T-score at or above -1.0), Osteopenic (T-score between -1.0 and -2.5) or Osteoporotic (T-score at or below -2.5). LIMITATIONS AND MODIFICATION: None. FRACTURE RISK (FRAX SCORE): The ten year probability of (%): Major Osteoporotic Fracture: [7.5] Hip Fracture: [.7] IMPRESSION: 1. Osteoporosis. 2. Baseline examination. 3. See below National Osteoporosis Foundation guidelines on when to potentially initiate pharmacologic therapy. Based on the National Osteoporosis Foundation Guidelines, pharmacologic treatment should be initiated in any of the following, unless clinical conditions suggest otherwise: * Any patient with prior fragility fracture of the hip or vertebrae. A spine fracture indicates 5X risk for subsequent spine fracture and 2X risk for subsequent hip fracture. * Osteoporosis (T-score <-2.5). * Postmenopausal women and men age 50 and older with low bone mass/osteopenia (T-score between -1.0 and -2.5) by DXA and 10-year major osteoporotic fracture greater than 20% or a 10-year probability of hip fracture greater than 3%. These fracture risks are supplied above in the FRAX score, if applicable. * Clinician judgement and/or patient preferences may indicate treatment for people with 10-year fracture probabilities above or below these levels. Dictated by: Dictated on workstation # [id number]
== END ==
LOC: RAD 09:26
PROVIDERS: ATTEND Nurse Practitioner Adult Health
DX: Z13.820 Encounter for screening for osteoporosis (principal); M81.0 Age-related osteoporosis without current pathological fracture; M40.294 Other kyphosis, thoracic region; D05.12 Intraductal carcinoma in situ of left breast; Z79.810 Long term (current) use of selective estrogen receptor modulators (SERMs); Z78.0 Asymptomatic menopausal state
CPT/HCPCS: 77080

== ENCOUNTER 2019-03-04 14:52 | Outpatient (RCR) | payer BC ==
[2019-03-04 15:02] LABS: BASOPHILS % (AUTO) 0 % (0-10); EOSINOPHILS # (AUTO) 0.1 10^3/uL (0.0-0.3); EOSINOPHILS % (AUTO) 1 % (0-10); HEMATOCRIT 40 % (35-52); HEMOGLOBIN 13.1 G/DL (11.5-16.0); LYMPHOCYTES % (AUTO) 25 % (12-44); MEAN CORPUSCULAR HEMOGLOBIN 30 PG (25-34); MEAN CORPUSCULAR HGB CONC 33 G/DL (32-36); MEAN CORPUSCULAR VOLUME 92 FL (80-99); MEAN PLATELET VOLUME 11.3 FL (7.4-10.4); MONOCYTES # (AUTO) 0.6 X 10^3 (0.0-1.0); MONOCYTES % (AUTO) 7 % (0-12); NEUTROPHILS # (AUTO) 5.5 X 10^3 (1.8-7.8); NEUTROPHILS % (AUTO) 67 % (42-75); PLATELET COUNT 194 10^3/uL (130-400); RED CELL DISTRIBUTION WIDTH 13.4 % (10.0-14.5); WHITE BLOOD COUNT 8.3 10^3/uL (4.3-11.0)
[2019-03-04 15:24] LABS: ALANINE AMINOTRANSFERASE 19 U/L (0-55); ALBUMIN 4.2 GM/DL (3.2-4.5); ALKALINE PHOSPHATASE 44 U/L (40-136); BILIRUBIN,TOTAL 0.3 MG/DL (0.1-1.0); BUN/CREATININE RATIO 23; CALCIUM 10.4 MG/DL (8.5-10.1); CARBON DIOXIDE 30 MMOL/L (21-32); CHLORIDE 105 MMOL/L (98-107); CREATININE SERUM 0.74 MG/DL (0.60-1.30); GFR ESTIMATED > 60; GLUCOSE 91 MG/DL (70-105); POTASSIUM 3.8 MMOL/L (3.6-5.0); SODIUM 141 MMOL/L (135-145); TOTAL PROTEIN 6.6 GM/DL (6.4-8.2)
== END 2019-06-02 | disposition home or self-care (01) ==
LOC: ONC 14:52
PROVIDERS: ATTEND Internal Medicine Hematology & Oncology
DX: D05.12 Intraductal carcinoma in situ of left breast (principal); M81.0 Age-related osteoporosis without current pathological fracture; E78.5 Hyperlipidemia, unspecified; K21.9 Gastro-esophageal reflux disease without esophagitis; Z79.810 Long term (current) use of selective estrogen receptor modulators (SERMs); Z79.899 Other long term (current) drug therapy
CPT/HCPCS: 36415; 80053; 82306; 85025; 99213

== ENCOUNTER → 2019-09-02 | Outpatient (CLI) | payer BC | LOC: ONC 13:33 | PROVIDERS: ATTEND Internal Medicine Hematology & Oncology | DX: D05.12 Intraductal carcinoma in situ of left breast (principal); M81.0 Age-related osteoporosis without current pathological fracture; E78.5 Hyperlipidemia, unspecified; K21.9 Gastro-esophageal reflux disease without esophagitis; Z79.810 Long term (current) use of selective estrogen receptor modulators (SERMs); Z79.899 Other long term (current) drug therapy | CPT/HCPCS: 99213 ==

== ENCOUNTER → 2019-12-20 | Outpatient (CLI) | payer BC ==
[~2019-12-20] MED LIST changes: +SIMV20TA26 PO; -SIMV20TA3 PO
--- NOTE | 2019-12-20 12:06 | Diagnostic Imaging Report ---
EXAMINATION: CHEST (PA AND LATERAL) CLINICAL INDICATION: 64-year-old female, chest pain. COMPARISON: December 31, 2017. FINDINGS: There is a 5 mm calcified granuloma overlying the left midlung. Heart size and mediastinal contours are unchanged. There is no identified pneumothorax. There is no pleural effusion. There is no identified focal airspace consolidation. There are surgical clips overlying the left breast/chest. IMPRESSION: 1. No identified acute cardiopulmonary abnormality. Dictated by: Dictated on workstation # [id number]
== END ==
LOC: RAD 10:22
PROVIDERS: ATTEND Nurse Practitioner
DX: R09.1 Pleurisy (principal); Z98.890 Other specified postprocedural states
CPT/HCPCS: 71046

== ENCOUNTER 2019-12-30 11:17 | Observation (INO) | payer BC ==
[~2019-12-30] VITALS: Ht 170.2 cm; Wt 65.4 kg
[~2019-12-30 11:17] MED LIST changes: +ASPIRIN 81 MG CHEW (CHILDREN'S ASA) ONE
[2019-12-30] MEDS ORDERED: NITROGLYCERIN 0.4 MG SL TABS BTL 25'S SL ONE (11:21)
--- NOTE | 2019-12-30 11:25 | ED Chest Pain ---
General Stated Complaint: CHEST TIGHTNESS Source: patient Exam Limitations: no limitations History of Present Illness Date Seen by Provider: Dec 30, 2019 Time Seen by Provider: 11:23 Initial Comments To ER by private vehicle with reports of intermittent chest pain described as tightness in the center of her chest for about 3 weeks. These episodes come at random, not associated with activity. No associated shortness of breath diaphoresis or nausea. Pain is described as tightness in her chest lasting about 2-4 hours during each episode. She is also noticed some tingling in the left hand over the past few days. The left upper arm and forearm feel normal but tingling is confined to the hand. She is a nonsmoker without hypertension or jose betes or personal history of heart disease. Timing/Duration: intermittent Severity/Quality: moderate Location: central Radiation: no radiation Activities at Onset: none ASA po WAVE SOLDER OFFBEARER: No NTG SL WAVE SOLDER OFFBEARER: No Associated Symptoms: No fever/chills, No nausea/vomiting, No shortness of breath Allergies and Home Medications Allergies Coded Allergies: No Known Drug Allergies (Unverified , 12/24/17) Home Medications Alendronate Sodium 70 Mg Tablet, 70 MG PO FRIDAY, (Reported) Ascorbic Acid 250 Mg Tab, 250 MG PO DAILY, (Reported) Atorvastatin Calcium 20 Mg Tablet, 20 MG PO HS, (Reported) Cholecalciferol (Vitamin D3) 125 Mcg Capsule, 125 MCG PO DAILY, (Reported) Tamoxifen Citrate 20 Mg Tablet, 20 MG PO DAILY, (Reported) Patient Home Medication List Home Medication List Reviewed: Yes Review of Systems Review of Systems Constitutional: see HPI EENTM: No Symptoms Reported Respiratory: No Symptoms Reported Cardiovascular: See HPI Gastrointestinal: No Symptoms Reported Genitourinary: No Symptoms Reported Musculoskeletal: no symptoms reported Skin: no symptoms reported Psychiatric/Neurological: No Symptoms Reported Endocrine: No Symptoms Reported Hematologic/Lymphatic: No Symptoms Reported Past Damzlum-Rtcskl-Rtrmpd Hx Patient Social History 2nd Hand Smoke Exposure: No Recent Foreign Travel: No Contact w/Someone Who Travel: No Recent Hopitalizations: No Immunizations Up To Date Date of Influenza Vaccine: Jun 25, 2017 Seasonal Allergies Seasonal Allergies: No Past Medical History Surgeries: Yes (lumpectomy) Breast Respiratory: No Cardiac: Yes High Cholesterol Neurological: No Reproductive Disorders: No Genitourinary: No Gastrointestinal: No Musculoskeletal: No Endocrine: No Cancer: Yes Breast Did You Recieve Any Treatments: Yes What Type of Treatment Did You: Surgical Intervention Psychosocial: No Integumentary: No Blood Disorders: No Family Medical History No Pertinent Family Hx Physical Exam Vital Signs Vital Signs - First Documented 12/30/19 11:17 Temp 37.3 Pulse 75 Resp 17 B/P (MAP) 149/83 (105) Pulse Ox 97 O2 Delivery Room Air Capillary Refill : Height, Weight, BMI Height: 5'7.00" Weight: 140lbs. 0.0oz. 63.311862fx; 22.6 BMI Method:Stated General Appearance: No Apparent Distress, WD/WN HEENT: PERRL/EOMI, TMs Normal Neck: Normal Inspection Respiratory: No Accessory Muscle Use, No Respiratory Distress Cardiovascular: Regular Rate, Rhythm, Normal Peripheral Pulses Gastrointestinal: Normal Bowel Sounds, Non Tender, Soft Extremity: Normal Capillary Refill, Normal Inspection Neurologic/Psychiatric: Alert, Oriented x3 Skin: Normal Color, Warm/Dry Progress/Results/Core Measures Results/Orders Lab Results Laboratory Tests Test 12/30/19 00:00 12/30/19 11:30 Range/Units White Blood Count 8.4 4.3-11.0 10^3/uL Red Blood Count 4.65 4.35-5.85 10^6/uL Hemoglobin 13.7 11.5-16.0 G/DL Hematocrit 42 35-52 % Mean Corpuscular Volume 91 80-99 FL Mean Corpuscular Hemoglobin 30 25-34 PG Mean Corpuscular Hemoglobin Concent 33 32-36 G/DL Red Cell Distribution Width 13.6 10.0-14.5 % Platelet Count 210 130-400 10^3/uL Mean Platelet Volume 11.5 H 7.4-10.4 FL Neutrophils (%) (Auto) 69 42-75 % Lymphocytes (%) (Auto) 23 12-44 % Monocytes (%) (Auto) 7 0-12 % Eosinophils (%) (Auto) 1 0-10 % Basophils (%) (Auto) 1 0-10 % Neutrophils # (Auto) 5.8 1.8-7.8 X 10^3 Lymphocytes # (Auto) 1.9 1.0-4.0 X 10^3 Monocytes # (Auto) 0.6 0.0-1.0 X 10^3 Eosinophils # (Auto) 0.0 0.0-0.3 10^3/uL Basophils # (Auto) 0.0 0.0-0.1 10^3/uL Prothrombin Time 13.3 12.2-14.7 SEC INR Comment 1.0 0.8-1.4 Activated Partial Thromboplast Time 28 24-35 SEC D-Dimer 0.35 0.00-0.49 UG/ML Sodium Level 142 135-145 MMOL/L Potassium Level 4.2 3.6-5.0 MMOL/L Chloride Level 108 H 98-107 MMOL/L Carbon Dioxide Level 23 21-32 MMOL/L Anion Gap 11 5-14 MMOL/L Blood Urea Nitrogen 18 7-18 MG/DL Creatinine 0.81 0.60-1.30 MG/DL Estimat Glomerular Filtration Rate > 60 BUN/Creatinine Ratio 22 Glucose Level 121 H 70-105 MG/DL Calcium Level 10.5 H 8.5-10.1 MG/DL Corrected Calcium 10.3 H 8.5-10.1 MG/DL Magnesium Level 2.3 1.6-2.4 MG/DL Total Bilirubin 0.4 0.1-1.0 MG/DL Aspartate Amino Transf (AST/SGOT) 20 5-34 U/L Alanine Aminotransferase (ALT/SGPT) 16 0-55 U/L Alkaline Phosphatase 41 40-136 U/L Myoglobin 26.7 10.0-92.0 NG/ML Troponin I < 0.028 <0.028 NG/ML Total Protein 7.3 6.4-8.2 GM/DL Albumin 4.3 3.2-4.5 GM/DL Lipase 33 8-78 U/L Thyroid Stimulating Hormone (TSH) 1.47 0.35-4.94 UIU/ML Free Thyroxine 0.84 0.70-1.48 NG/DL My Orders Orders - GAGE CHAVARRIA DIESEL PILE HAMMER OPERATOR Cbc With Automated Diff (12/30/19 11:22) Magnesium (12/30/19 11:22) Chest 1 View, Ap/Pa Only (12/30/19 11:22) Ekg Tracing (12/30/19 11:22) Comprehensive Metabolic Panel (12/30/19 11:22) Myoglobin Serum (12/30/19 11:22) Protime With Inr (12/30/19 11:22) Partial Thromboplastin Time (12/30/19 11:22) O2 (12/30/19 11:22) Monitor-Rhythm Ecg Trace Only (12/30/19 11:22) Lipid Panel (12/31/19 06:00) Ed Iv/Invasive Line Start (12/30/19 11:22) Lipase (12/30/19 11:22) BNP (12/30/19 11:22) Troponin I (12/30/19 11:22) Aspirin Chewable Tablet (Baby Aspirin Ch (12/30/19 11:30) Fibrin Degradation Products (12/30/19 11:22) Thyroid Stimulating Hormone (12/30/19 11:22) Free T4 (Free Thyroxine) (12/30/19 11:22) Nitroglycerin 0.4 Mg Btl 25's (Nitrostat (12/30/19 11:30) Nitroglycerin 0.4 Mg Btl 25's (Nitrostat (12/30/19 11:21) Ns Iv 1000 Ml (Sodium Chloride 0.9%) (12/30/19 11:31) Ns Iv 1000 Ml (Sodium Chloride 0.9%) (12/30/19 12:30) Antacid Suspension (Mylanta Suspension (12/30/19 12:30) Lidocaine 2% Viscous 15 Ml (Xylocaine Vi (12/30/19 12:30) Medications Given in ED Current Medications Medications Dose Ordered Sig/Aaron Route Start Time Stop Time Status Last Admin Dose Admin Aspirin 324 mg ONCE ONCE PO 12/30/19 11:30 12/30/19 11:31 DC 12/30/19 11:25 324 MG Nitroglycerin 1 TAB Q 5 MIN X 3 NEEDED PRN SL 12/30/19 11:30 12/30/19 14:52 DC 12/30/19 11:28 0.4 MG Vital Signs/I&O 12/30/19 11:17 Temp 37.3 Pulse 75 Resp 17 B/P (MAP) 149/83 (105) Pulse Ox 97 O2 Delivery Room Air Departure Communication (Admissions) 1137-chest pressure rated 3 out of 10. Sublingual nitroglycerin ordered. After one sublingual nitroglycerin her blood pressure dropped to 69/30 (from 140s systolic initially), 1 L IV fluids initiated. EKG is without ST segment changes. Impression Primary Impression: chest pain Disposition: ADMITTED INPATIENT Condition: Stable Admissions Decision to Admit Reason: Admit from ER (General) Decision to Admit/Date: Dec 30, 2019 Time/Decision to Admit Time: 11:37 Departure-Patient Inst. Referrals: JD CHAU MD (PCP/Family) Primary Care Physician GAGE CHAVARRIA APRN Dec 30, 2019 11:25
[2019-12-30] MEDS ORDERED: NITROGLYCERIN 0.4 MG SL TABS BTL 25'S SL PRN (11:30)
[2019-12-30] MEDS ORDERED: ASPIRIN 81 MG CHEW (CHILDREN'S ASA) PO ONE (11:30)
[2019-12-30] MEDS ORDERED: NS IV 1000 ML 1,000 ML ONE (11:31)
--- OUTSIDE RECORDS SUMMARY | 2019-12-30 11:36 | XMS REPORT | Encounter Summary ---
Author Author [facility] Organization [facility] Address Unknown Phone Unavailable Care Team Providers Care Menhaden Fishing Crew Member Name Role Phone DumontChintan Korina DO Unavailable Outpatient, Radiologist Unavailable Unavailable Daryl Macdonald MD PCP Mychart, Generic Provider Unavailable Unavailable Yarelis Cheema PA-C Unavailable [phone] Tavia Gupta MD Unavailable Candi Pollock RN Unavailable Unavailable Daryl Hickey MD Unavailable Joaquin Cooper CRNA Unavailable Betzaida Walker MD 3 Reason for Visit * Reason Comments Appointment Encounter Details Care Team Description Date Type Department Yarelis Cheema PA-C [address] [facility] [place] [address] Appointment 12/22/2019 Telephone [facility] [id number] [place] [address] Social History Date Tobacco Use Types Packs/Day Years Used Never Smoker Smokeless Tobacco: Never Used Drinks/Week oz/Week Comments Alcohol Use No Sex Assigned at Date Recorded Not on file Industry Job Start Date Occupation Not on file Not on file Not on file Travel End Travel History Travel Start No recent travel history available. documented as of this encounter Functional Status Date of Assessment Functional Status Response 01/08/2019 Does the patient have a hearing impairment: No 01/08/2019 Does the patient have a visual impairment: Yes 01/08/2019 Does the patient have impaired ambulation: No 01/08/2019 Does the patient have an activity of daily living No (ADL) impairment: 01/08/2019 Does the patient have an instrumental activity of No daily living (IADL) impairment: Date of Assessment Cognitive Status Response 01/08/2019 Does the patient have a cognitive impairment: No documented as of this encounter Miscellaneous Notes * Telephone Encounter - Yarelis Cheema PA-C - 12/22/2019 1:16 PM CDT I spoke with Ms. Barriga regarding her appointment on 01/13/20 and let her know t hat we are currently cancelling all nonemergent office visits and imaging due to COVID 19. She has no concerns at this time. I will contact her to reschedule. Yarelis Cheema PA-C documented in this encounter Plan of Treatment Not on filedocumented as of this encounter Visit Diagnoses Not on filedocumented in this encounter
--- OUTSIDE RECORDS SUMMARY | 2019-12-30 11:36 | XMS REPORT | Clinical Summary ---
Author Author [facility] Organization [facility] Address Unknown Phone Unavailable Care Team Providers Care Academic Vice President Name Role Phone TimChintan Korina DO Unavailable Outpatient, Radiologist Unavailable Unavailable Daryl Macdonald MD PCP Mychart, Generic Provider Unavailable Unavailable Yarelis Cheema PA-C Unavailable [phone] Tavia Gupta MD Unavailable Candi Pollock RN Unavailable Unavailable Daryl Hickey MD Unavailable Joaquin Cooper CRNA Unavailable Betzaida Walker MD 3 Source Comments Some departments are not documenting in the electronic medical record. If you d o not see the information that you expected, contact Release of Information in [facility] Information Management department at [phone] for further assistan nargis in locating additional records.[facility] Allergies No Known Allergies Medications End Date Status Medication Sig Dispensed Refills Start Date Active Levocetirizine (XYZAL) 5 Take 5 mg by 0 mg tab mouth at bedtime daily. Active simvastatin (ZOCOR) 20 mg Take 20 mg by 0 tablet mouth at bedtime daily. Active HYDROcodone/acetaminophen Take 1-2 Tabs 40 Tab 0 (NORCO) 5-325 mg tablet by mouth 6 every 4 hours as needed for Pain Active tamoxifen (NOLVADEX) 10 Take 20 mg by 0 mg tablet mouth daily. Doses >20mg should be given in two divided doses. Active atorvastatin (LIPITOR) 20 20 mg daily. 0 11/20 8/201 mg tablet 9 Active alendronate (FOSAMAX) 70 70 mg every 7 0 04/05 /201 mg tablet days. 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 Barriga is a fe male who presented [facility] on 02/12/2016 at age 60 fo r evaluation of left breast cancer. She had no complaints prior to her scre ening mammogram. Left stereotactic biopsy 02/01/16 ([facility]) revealed gr edith 3 ductal carcinoma in situ. Ms. Barriga underwent left RSL lumpectomy o n 03/28/16. Final pathology revealed grade 3 DCIS; all margins greater than 1.5 cm. She finished radiation with Dr. Carson in [place], [place] on 06/18/16. BREAST IMAGING: Mammogram: -- Bilateral screening mammogram ([facility]) revealed heterogeneously dense breast tissue. In the far lateral aspect of the left breast, 10 cm FTN there was a group of pleomorphic calcifications. Left diagnostic mammogram recommended. -- Left diagnostic mammogram 07/31/15 ( [facility]) revealed a slightly heterogeneous cluster of calcifications . 6 month follow up mammogram was recommended. -- Left diagnostic mammogram 01/29/16 ([facility]) revealed the calcifications in the posterior left br east had slightly increased. Stereotactic biopsy was recommended. -- Bilateral diagnostic mammogram () revealed 2 areas of residual calcifications anterior to the known ar ea of DCIS. One group was seen 2.4 cm lateral and slightly anterior to the biopsy clip. The second group of calcification was also seen 3.2 cm ante romedially from the biopsy clip. The total extent of the groups of microcalc ifications on the prebiopsy images was approximately 4.1 cm transverse x 2.0 cm AP. These additional areas of calcification were suspicious for resid ual malignancy. An MRI was recommended to evaluate for extent of d isease, including contiguous noncalcified DCIS. If present, addition al biopsy may not be necessary. If MRI was not performed, or did not show contiguous disease, then a stereotactic biopsy of one of these additional areas of calcification s was recommended to evaluate for multifocal disease. Ultrasound: -- Targeted left breast ultrasound 02/11 ([facility]) revealed at 3:30-4:00, 8 cm FTN, revealed a post biopsy hematoma/se erik measuring approximately 4.6 x 0.6 x 2.7 cm. A clip was seen within this collection. No suspicious masses w ere apparent. Axilla showed no adenopathy. REPRODUCTIVE HEALTH: Age at first Menarche: 15 Age at First Live : 28 Age at Menopause: 54, no HRT : 3 Para: 3 : None PROCEDURE: Left RSL lumpectomy, 03/28/16 PERTINENT PMH: HLD FAMILY HISTORY: No family history of b reast or ovarian cancer PHYSICAL EXAM on PRESENTATION: Right - No palpable breast masses. No skin, nipple, or areolar change. Left - Large hematoma at 4:00 with bruising. No supraclavicular or axillary adenopathy. MEDICAL ONCOLOGY: Dr. Walker PRESENT TH ERAPY: Tamoxifen, started 06/2016 REFERRED BY: Self Encounters Care Team Description Date Type Specialty Yarelis Cheema PA-C Appointment 12/22/2019 Telephone Oncology from Last 3 Months Immunizations Name Administration Dates Next Due Flu Vaccine =>3 YO 06/22/2015 (Historical) Flu Vaccine =>6 Months 06/23/2018 Quadrivalent PF Family History Medical History Relation Name Comments High Cholesterol Father Diabetes Maternal Grandmother High Cholesterol Mother Cancer Paternal Uncle Relation Name Status Comments Father Maternal Grandmother Mother Paternal Uncle Social History Date Tobacco Use Types Packs/Day Years Used Never Smoker Smokeless Tobacco: Never Used Drinks/Week oz/Week Comments Alcohol Use No Sex Assigned at Date Recorded Not on file Industry Job Start Date Occupation Not on file Not on file Not on file Travel End Travel History Travel Start No recent travel history available. Last Filed Vital Signs Reading Time Taken Comments Vital Sign 110/60 01/08/2019 9:54 AM CDT Blood Pressure 70 01/08/2019 9:54 AM CDT Pulse 37.1 C (98.7 F) 01/08/2019 9:54 AM CDT Temperature 16 01/08/2019 9:54 AM CDT Respiratory Rate 100% 01/08/2019 9:54 AM CDT Oxygen Saturation - - Inhaled Oxygen Concentration 62.5 kg (137 lb 12.8 oz) 01/08/2019 9:54 AM CDT Weight 170.2 cm (5' 7") 01/08/2019 9:54 AM CDT Height 21.58 01/08/2019 9:54 AM CDT Body Mass Index Plan of Treatment Health Maintenance Due Date Last Done Comments HEPATITIS C SCREENING 1957 DTAP/TDAP VACCINES (1 - 1968 Tdap) HIV SCREENING 1972 PHYSICAL (COMPREHENSIVE) 1975 EXAM CERVICAL CANCER SCREENING 1978 COLORECTAL CANCER 2007 SCREENING SHINGLES RECOMBINANT 2007 VACCINE (1 of 2) BREAST CANCER SCREENING 01/09/2020 01/08/2019, 12/19/2017, 12/04/2016, Additional history exists INFLUENZA VACCINE 04/22/2020 06/23/2018, 06/22/2015 Results Not on filefrom Last 3 Months Insurance Type Payer Benefit Subscriber ID Effective Phone Address Plan / Dates Group PPO BCBS [facility] xxxxxxxxxxxx 2015-P [facility] yari OLSEN [id number] Advance Directives Patient Management Liaison Explanation Type Date Recorded Advance 02/12/2016 7:31 AM Directive/DPOA
--- OUTSIDE RECORDS SUMMARY | 2019-12-30 11:37 | XMS REPORT ---
Author Author Alice Roca Doctor Organization [facility] Address Unknown Phone Unavailable Care Team Providers Care Lining Inserter Name Role Phone Migration, Doctor Unavailable Unavailable PROBLEMS No Known Problems ALLERGIES No Information ENCOUNTERS Encounter Location Date Diagnosis [facility] [id number] [place] [phone] 14 Jul, 2018 Pneumonia due to infectious organism, unspecified laterality, unspecified part of lung J18.9 [facility] [address] [id number] [place] [phone] Jul, [facility] [id number] [place] [phone] Jul, Pneumonia due to infectious organism, unspecified laterality, unspecified part of lung J18.9 [facility] [id number] [place] [phone] Jun, Encounter for immunization Z 23 [facility] [id number] [place] [phone] January, Pneumonia of right lower lob e due to infectious organism J18.1 [facility] [address] [place] [phone] Jul, [facility] [id number] [place] [phone] Jul, Pressure in chest R07.89 and Bronchitis J40 [facility] [id number] [place] [phone] Jul, Acute tonsillitis, unspecifi ed etiology J03.90 [facility] [id number] [place] [phone] Jun, Encounter for immunization Z 23 [facility] [id number] [place] [id number] Feb, Dental examination Z01.20 [facility] [address] [phone] Dec, Dental examination Z01.20 [facility] [address] [facility] [id number] [address] [place] [phone] Oct, Dental examination Z01.20 [facility] [id number] [place] [phone] Oct, Dental examination Z01.20 [facility] [address] [address] Jun, Encounter for immunization Z 23 [facility] [address] [phone] Sep, Dysuria R30.0 and Urinary tr act infection N39.0 [facility] [address] [phone] Aug, Abscess L02.91 [facility] [address] [phone] Jul, Cough R05 [facility] [address] [phone] 07 Jul, 2015 Viral syndrome B34.9 and Sea petra allergies J30.2 [facility] [address] [phone] Jun, Encounter for immunization Z 23 [facility] [address] [phone] Apr, TDAP DX V06.1 [address] [address] [address] [phone] 14 Dec, 2014 [facility] [address] [address] Dec, [facility] [address] [id number] [address] [place] [address], [place] [address] Nov, [facility] [address] [id number] [address] [place] [address], [place] [address] Nov, [facility] [address] [id number] [address] [place] [address], [place] [phone] Sep, [facility] [address] [id number] [address] [place] [address], [place] [address] Sep, [facility] [address] [id number] [address] [place] [address], [place] [phone] Jun, [facility] [address] [id number] [address] [place] [address], [place] [address] Jun, [facility] [address] [id number] [address] [place] [address], [place] [address] January, [facility] [address] [id number] [address] [place] [address], [place] [address] January, [facility] [address] [id number] [address] [place] [address], [place] [address] January, [facility] [address] [id number] [address] [place] [address], [place] [address] January, [facility] [address] [id number] [address] [place] [address], [place] [address] Dec, [facility] [address] [id number] [address] [place] [address], [place] [address] Dec, [facility] [address] [id number] [address] [place] [address], [place] [address] Jun, [facility] [address] [id number] [address] [place] [address], [place] [address] Jun, [facility] [address] [id number] [address] [place] [address], [place] [address] Nov, [facility] [address] [id number] [address] [place] [address], [place] [address] Nov, [facility] [address] [id number] Jun, [facility] [address] [facility] [id number] [address] [place] [phone] Jun, [facility] [address] [facility] [id number] [address] [place] [phone] Jul, [facility] [address] [facility] [id number] [address] [place] [phone] Jun, [facility] [address] [facility] [id number] [address] [place] [phone] Apr, IMMUNIZATIONS No Known Immunizations SOCIAL HISTORY Never Assessed REASON FOR VISIT [place] VITAL SIGNS MEDICATIONS No Known Medications RESULTS No Results PROCEDURES No Known procedures INSTRUCTIONS MEDICATIONS ADMINISTERED No Known Medications MEDICAL (GENERAL) HISTORY Type Description Date Medical History Hyperlipidemia Medical History seasonal allergies Medical History cancer/radiation Surgical History Lumpectomy 03/28/16
--- OUTSIDE RECORDS SUMMARY | 2019-12-30 11:37 | XMS REPORT ---
Author Author Alice CHAWLA Organization [facility] Address [address] [place] [address] Care Team Providers Care Endless Bed Drum Sander Name Role Phone DIANE CHAWLA Unavailable PROBLEMS No Known Problems ALLERGIES No Information ENCOUNTERS Encounter Location Date Diagnosis [facility] [address] [address] Jun, Encounter for immunization Z23 [facility] [address] [place] [address] Jul, Pneumonia due to infectious organism, unspecified laterality, unspecified part of lung J18.9 [facility] [address] [address] Jul, [address] [address] Jul, Pneumonia due to infectious organism, un specified laterality, unspecified part of lung J18.9 [facility] [address] [address] Jun, Encounter for immunization Z23 [facility] [address] [place] [id number] [address] [place] [address] January, Pneumonia of right lower lob e due to infectious organism J18.1 [facility] [address] [place] [address] Jul, [facility] [address] [address] Jul, Pressure in chest R07.89 and Bronchitis J40 [place] [address] [address] Jul, Acute tonsillitis, unspecified etiology J03.90 [facility] [address] [place] [id number] [address] [place] [address] Jun, Encounter for immunization Z 23 [facility] [address] [id number] Feb, Dental examination Z01.20 [facility] [address] [address] Dec, Dental examination Z01.20 [facility] [address] [id number] Oct, Dental examination Z01.20 [facility] [address] [address] Oct, Dental examination Z01.20 [facility] [address] [address] Jun, Encounter for immunization Z23 [facility] [address] [address] Sep, Dysuria R30.0 and Urinary tr act infection N39.0 [facility] [address] [address] Aug, Abscess L02.91 [place] [address] [address] Jul, Cough R05 [facility] N [address] [address] Jul, Viral syndrome B34.9 and Sea petra allergies J30.2 [place] [address] [address] Jun, Encounter for immunization Z23 [place] [address] [address] Apr, TDAP DX V06.1 [place] [address] [address] Dec, [place] [address] [address] Dec, [facility] [address] [facility] [id number] [place] [address] Nov, [facility] [address] [id number] [place] [address] Nov, [facility] [address] [id number] [place] [address] Sep, [facility] [address] [id number] [place] [address] Sep, [facility] [address] [id number] [place] [address] Jun, [facility] [address] [id number] [place] [address] Jun, [facility] [address] [id number] [place] [address] January, [facility] [address] [id number] [place] [address] January, [facility] [address] [id number] [place] [address] January, [facility] [address] [id number] [place] [address] January, [facility] [address] [id number] [place] [address] Dec, [facility] [address] [id number] [place] [address] Dec, [facility] [address] [id number] [place] [address] Jun, [facility] [address] [id number] [place] [address] Jun, [facility] [address] [id number] [place] [address] Nov, [facility] [address] [id number] [place] [address] Nov, [facility] [address] [id number] [place] [id number] Jun, [facility] [address] [id number] [place] [address] Jun, [facility] [address] [id number] [place] [address] Jul, [facility] [address] [id number] [place] [address] Jun, [facility] [address] [id number] [place] [address] Apr, IMMUNIZATIONS No Known Immunizations SOCIAL HISTORY Never Assessed REASON FOR VISIT PLAN OF CARE VITAL SIGNS Height 66 in 2013-12-31 Weight 144.5 lbs 2013-12-31 Temperature 98.1 degrees Fahrenheit 2013-12-31 Heart Rate 80 bpm 2013-12-31 Respiratory Rate 16 2013-12-31 Blood pressure systolic 104 mmHg 2013-12-31 Blood pressure diastolic 80 mmHg 2013-12-31 MEDICATIONS Unknown Medications RESULTS No Results PROCEDURES No Known procedures INSTRUCTIONS MEDICATIONS ADMINISTERED No Known Medications MEDICAL (GENERAL) HISTORY Type Description Date Medical History Hyperlipidemia Medical History seasonal allergies Medical History cancer/radiation Surgical History Lumpectomy 03/28/16
--- OUTSIDE RECORDS SUMMARY | 2019-12-30 11:37 | XMS REPORT ---
Author Author Alice PARRA Organization [facility] Address [address] [place] [address] Care Team Providers Care B2B Sales Executive Name Role Phone MARK PARRA Unavailable PROBLEMS No Known Problems ALLERGIES No Information ENCOUNTERS Encounter Location Date Diagnosis [facility] [address] [facility] [id number] [address] [place] [address] 14 Jul, 2018 Pneumonia due to infectious organism, unspecified laterality, unspecified part of lung J18.9 [place] [address] [facility] [id number] [address] [place] [address] Jul, [facility] [address] [facility] [id number] [address] [place] [address] Jul, Pneumonia due to infectious organism, unspecified laterality, unspecified part of lung J18.9 [facility] [address] [facility] [id number] [address] [place] [address] 02 Jun, 2018 Encounter for immunization Z 23 [facility] [address] [facility] [id number] [address] [place] [address] January, Pneumonia of right lower lob e due to infectious organism J18.1 [facility] [address] [facility] [id number] [address] [place] [address] Jul, [facility] [address] [facility] [id number] [address] [place] [address] Jul, Pressure in chest R07.89 and Bronchitis J40 [facility] [address] [facility] [id number] [address] [place] [address] 03 Jul, 2017 Acute tonsillitis, unspecifi ed etiology J03.90 [facility] [address] [facility] [id number] [address] [place] [address] Jun, Encounter for immunization Z 23 [facility] [address] [facility] [id number] [address] [place] [id number] Feb, Dental examination Z01.20 [facility] [address] [facility] [id number] [address] [place] [address] Dec, Dental examination Z01.20 [facility] [address] [facility] [id number] [address] [place] [id number] Oct, Dental examination Z01.20 [facility] [address] [facility] [id number] [address] [place] [address] Oct, Dental examination Z01.20 [facility] [address] [place] [id number] [place] [address] Jun, Encounter for immunization Z 23 [facility] [address] [place] [id number] [place] [address] Sep, Dysuria R30.0 and Urinary tr act infection N39.0 [facility] [address] [place] [id number] [place] [address] Aug, Abscess L02.91 [facility] [address] [address] Jul, Cough R05 [facility] [address] [place] [id number] [place] [address] Jul, Viral syndrome B34.9 and Sea petra allergies J30.2 [facility] [address] [place] [id number] [address] [place] [address] Jun, Encounter for immunization Z 23 [facility] [address] [address] Apr, TDAP DX V06.1 [facility] [address] [place] [id number] [address] [place] [address] Dec, [facility] [address] [address] Dec, [facility] [address] [id number] [address] [place] [address], [place] [address] Nov, [facility] [address] [id number] [address] [place] [address], [place] [address] Nov, [facility] [address] [id number] [address] [place] [address], [place] [address] Sep, [facility] [address] [id number] [address] [place] [address], [place] [address] Sep, [facility] [address] [id number] [address] [place] [address], [place] [address] Jun, [facility] [address] [id number] [address] [place] [address], [place] [address] Jun, [facility] [address] [id number] [address] [place] [address], [place] [address] January, [facility] [address] [id number] [address] [place] [address], [place] [address] January, [facility] [address] [id number] [address] [place] [address], [place] [address] January, [facility] [address] [id number] [address] [place] [address], [place] [address] January, [facility] [address] [id number] [address] [place] [address], [place] [address] Dec, [facility] [address] [id number] [address] [place] [address], [place] [address] Dec, [facility] [address] [id number] [address] [place] [address], [place] [address] Jun, [facility] [address] [id number] [address] [place] [address], [place] [address] Jun, [facility] [address] [id number] [address] [place] [address], [place] [address] Nov, [facility] [address] [id number] [address] [place] [address] Nov, [facility] [address] [id number] [place] [id number] Jun, [facility] [address] [facility] [id number] [address] [place] [address] Jun, [facility] [address] [facility] [id number] [address] [place] [address] Jul, [facility] [address] [facility] [id number] [address] [place] [address] Jun, [facility] [address] [facility] [id number] [address] [place] [address] Apr, IMMUNIZATIONS No Known Immunizations SOCIAL HISTORY Never Assessed REASON FOR VISIT PLAN OF CARE VITAL SIGNS MEDICATIONS Unknown Medications RESULTS No Results PROCEDURES No Known procedures INSTRUCTIONS MEDICATIONS ADMINISTERED No Known Medications MEDICAL (GENERAL) HISTORY Type Description Date Medical History Hyperlipidemia Medical History seasonal allergies Medical History cancer/radiation Surgical History Lumpectomy 03/28/16
--- OUTSIDE RECORDS SUMMARY | 2019-12-30 11:37 | XMS REPORT ---
Author Author Alice Alas Organization [facility] Address [address] [place] [address] Care Team Providers Care Data Processing Specialist Name Role Phone KLAUDIA Alas Unavailable PROBLEMS No Known Problems ALLERGIES No Information ENCOUNTERS Encounter Location Date Diagnosis [facility] [address] [facility] [id number] [address] [place] [address] 14 Jul, 2018 Pneumonia due to infectious organism, unspecified laterality, unspecified part of lung J18.9 [facility] [address] [facility] [id number] [address] [place] [address] Jul, [facility] [address] [facility] [id number] [address] [place] [address] Jul, Pneumonia due to infectious organism, unspecified laterality, unspecified part of lung J18.9 [facility] [address] [facility] [id number] [address] [place] [address] 02 Jun, 2018 Encounter for immunization Z 23 [facility] [address] [facility] [id number] [address] [place] [address] January, Pneumonia of right lower lob e due to infectious organism J18.1 [facility] [address] [id number] [address] [place] [address] Jul, [facility] [address] [facility] [id number] [address] [place] [address] Jul, Pressure in chest R07.89 and Bronchitis J40 [facility] [address] [facility] [id number] [address] [place] [address] 03 Jul, 2017 Acute tonsillitis, unspecifi ed etiology J03.90 [facility] [address] [place] [id number] [address] [place] [address] Jun, Encounter for immunization Z 23 [facility] [address] [id number] [address] [place] [id number] Feb, Dental examination Z01.20 [facility] [address] [facility] [id number] [address] [place] [address] Dec, Dental examination Z01.20 [facility] [address] [facility] [id number] [address] [place] [id number] Oct, Dental examination Z01.20 [facility] [address] [facility] [id number] [address] [place] [address] Oct, Dental examination Z01.20 [facility] [address] [place] [id number] [address] [place] [address] Jun, Encounter for immunization Z 23 [facility] [address] [place] [id number] [address] [place] [address] Sep, Dysuria R30.0 and Urinary tr act infection N39.0 [facility] [address] [place] [id number] [address] [place] [address] Aug, Abscess L02.91 [facility] [address] [place] [id number] [address] [place] [address] Jul, Cough R05 [facility] [address] [place] [id number] [address] [place] [address] Jul, Viral syndrome B34.9 and Sea petra allergies J30.2 [facility] [address] [place] [id number] [address] [place] [address] Jun, Encounter for immunization Z 23 [facility] [address] [place] [id number] [address] [place] [address] Apr, TDAP DX V06.1 [facility] [address] [place] [id number] [address] [place] [address] Dec, [facility] [address] [id number] [address] [place] [address], [place] [address] 13 Dec, 2014 [facility] [address] [id number] [address] [place] [address], [place] [address] Nov, [facility] [address] [id number] [address] [place] [address], [place] [address] Nov, [facility] [address] [id number] [address] [place] [address], [place] [address] Sep, [facility] [address] [id number] [address] [place] [address], [place] [address] Sep, [facility] [address] [id number] [address] [place] [address], [place] [address] Jun, [facility] [address] [id number] [address] [place] [address], [place] [address] Jun, [facility] [address] [id number] [address] [place] [address], [place] [address] January, [facility] [address] [id number] [address] [place] [address], [place] [address] January, [facility] [address] [id number] [address] [place] [address], [place] [address] January, [facility] [address] [id number] [address] [place] [address], [place] [address] January, [facility] [address] [id number] [address] [place] [address], [place] [address] Dec, [facility] [address] [id number] [address] [place] [address], [place] [address] Dec, [facility] [address] [id number] [address] [place] [address], [place] [address] Jun, [facility] [address] [id number] [address] [place] [address], [place] [address] Jun, [facility] [address] [id number] [address] [place] [address], [place] [address] Nov, [facility] [address] [facility] [id number] [address] [place] [address] Nov, [facility] [address] [id number] [place] [id number] Jun, [facility] [address] [facility] [id number] [address] [place] [address] Jun, [facility] [address] [facility] [id number] [address] [place] [address] Jul, [facility] [address] [facility] [id number] [address] [place] [address] Jun, [facility] [address] [facility] [id number] [address] [place] [address] Apr, IMMUNIZATIONS No Known Immunizations SOCIAL HISTORY Never Assessed REASON FOR VISIT PLAN OF CARE VITAL SIGNS Height 66 in 2014-12-07 Weight 144.9 lbs 2014-12-07 Temperature 97.7 degrees Fahrenheit 2014-12-07 Heart Rate 76 bpm 2014-12-07 Respiratory Rate 16 2014-12-07 Blood pressure systolic 120 mmHg 2014-12-07 Blood pressure diastolic 74 mmHg 2014-12-07 MEDICATIONS No Known Medications RESULTS No Results PROCEDURES Procedure Date Ordered Result Body Site DESTRUCT LESION, -December 07, 2014 INSTRUCTIONS MEDICATIONS ADMINISTERED No Known Medications MEDICAL (GENERAL) HISTORY Type Description Date Medical History Hyperlipidemia Medical History seasonal allergies Medical History cancer/radiation Surgical History Lumpectomy 03/28/16
--- OUTSIDE RECORDS SUMMARY | 2019-12-30 11:37 | XMS REPORT ---
Author Author Alice PARRA Organization [facility] Address [address] [place] [address] Care Team Providers Care Flower Shop Laborer/Designer Name Role Phone MARK PARRA Unavailable PROBLEMS No Known Problems ALLERGIES No Known Allergies ENCOUNTERS Encounter Location Date Diagnosis [facility] [address] [id number] [address] [place] [phone] Jul, Pneumonia due to infectious organism, unspecified laterality, unspecified part of lung J18.9 [facility] [address] [id number] [address] [place] [address] Jun, Encounter for immunization Z 23 [facility] [address] [id number] [address] [place] [address] January, Pneumonia of right lower lob e due to infectious organism J18.1 [facility] [address] [id number] [address] [place] [address] Jul, [facility] [address] [id number] [address] [place] [address] Jul, Pressure in chest R07.89 and Bronchitis J40 [facility] [address] [id number] [address] [place] [phone] Jul, Acute tonsillitis, unspecifi ed etiology J03.90 [facility] [address] [facility] [id number] [address] [place] [phone] Jun, Encounter for immunization Z 23 [facility] [address] [id number] [address] [place] [id number] Feb, Dental examination Z01.20 [facility] [address] [facility] [id number] [address] [place] [address] Dec, Dental examination Z01.20 [facility] [address] [facility] [id number] [address] [place] [id number] Oct, Dental examination Z01.20 [facility] [id number] [place] [address] Oct, Dental examination Z01.20 [facility] [address] [id number] [address] [place] [address] Jun, Encounter for immunization Z 23 [facility] [address] [address] Sep, Dysuria R30.0 and Urinary tr act infection N39.0 [facility] [address] [address] Aug, Abscess L02.91 [facility] [address] [address] Jul, Cough R05 [facility] [address] [address] Jul, Viral syndrome B34.9 and Sea petra allergies J30.2 [facility] [address] [address] Jun, Encounter for immunization Z 23 [facility] [address] [address] Apr, TDAP DX V06.1 [facility] [address] [id number] [address] [place] [phone] Dec, [facility] [address] [address] Dec, [facility] [address] [address] Nov, [facility] [address] [address] Nov, [facility] [place] [facility] [address] [id number] [address] [place] [address], [place] [address] Sep, [facility] [address] [id number] [address] [place] [address], [place] [address] Sep, [facility] [address] [id number] [address] [place] [address], [place] [address] Jun, [facility] [address] [id number] [address] [place] [address], [place] [address] Jun, [facility] [address] [id number] [address] [place] [address], [place] [address] January, [facility] [address] [id number] [address] [place] [address], [place] [address] January, [facility] [address] [id number] [address] [place] [address], [place] [address] January, [facility] [address] [id number] [address] [place] [address], [place] [address] January, [facility] [address] [id number] [address] [place] [address], [place] [address] Dec, [facility] [address] [id number] [address] [place] [address], [place] [address] Dec, [facility] [address] [id number] [address] [place] [address], [place] [address] Jun, [facility] [address] [id number] [address] [place] [address], [place] [address] Jun, [facility] [address] [id number] [address] [place] [address], [place] [address] Nov, [facility] [address] [id number] [address] [place] [address], [place] [address] Nov, [facility] [address] [id number] [place] [id number] Jun, [facility] [address] [id number] [address] [place] [address], [place] [address] Jun, [facility] [address] [facility] [id number] [address] [place] [phone] Jul, [facility] [address] [facility] [id number] [address] [place] [phone] Jun, [facility] [address] [facility] [id number] [address] [place] [address] Apr, IMMUNIZATIONS No Known Immunizations SOCIAL HISTORY Never Assessed REASON FOR VISIT cough and fever-BEAU hughes, started about a week ago PLAN OF CARE Activity Details Follow Up 2 Weeks Reason:pneumonia f/u . 1mo repeat CXR Pending Test Xray : Chest 2 View (IN HOUS E) VITAL SIGNS Height 66 in 2018-07-30 Weight 136.5 lbs 2018-07-30 Temperature 98.4 degrees Fahrenheit 2018-07-30 Heart Rate 85 bpm 2018-07-30 Respiratory Rate 20 2018-07-30 Oximetry on room air:100 % 2018-07-30 BMI 22.03 kg/m2 2018-07-30 Blood pressure systolic 120 mmHg 2018-07-30 Blood pressure diastolic 78 mmHg 2018-07-30 MEDICATIONS Medication Instructions Dosage Frequency Start Date End Date Duration S tatus Levaquin 500 mg Orally Once a day 1 tablet 24h Jul, Jul, 10 day(s) Active Tamoxifen Citrate 10 MG Orally Twice a day 1 tablet 12h 30 day(s) Active Lipitor 10 MG Orally Once a day 1 tablet 24h 30 day( s) Active RESULTS No Results PROCEDURES Procedure Date Ordered Result Body Site X-RAY EXAM CHEST 2 VIEWS Jul 30, 2018 INSTRUCTIONS MEDICATIONS ADMINISTERED No Known Medications MEDICAL (GENERAL) HISTORY Type Description Date Medical History Hyperlipidemia Medical History seasonal allergies Medical History cancer/radiation Surgical History Lumpectomy 03/28/16
--- OUTSIDE RECORDS SUMMARY | 2019-12-30 11:37 | XMS REPORT ---
Author Author Alice PALMA Organization [facility] [place] Address [address] [place] [address] Care Team Providers Care Camera Operator Name Role Phone LOVE PALMA Unavailable PROBLEMS No Known Problems ALLERGIES No Information ENCOUNTERS Encounter Location Date Diagnosis [facility] [address] [facility] [id number] [address] [place] [phone] 14 Jul, 2018 Pneumonia due to infectious organism, unspecified laterality, unspecified part of lung J18.9 [facility] [place] [address] [facility] [id number] [address] [place] [address] Jul, [facility] [place] [address] [id number] [address] [place] [address] Jul, Pneumonia due to infectious organism, unspecified laterality, unspecified part of lung J18.9 [facility] [place] [address] [facility] [id number] [address] [place] [address] 02 Jun, 2018 Encounter for immunization Z 23 [facility] [address] [facility] [id number] [address] [place] [address] January, Pneumonia of right lower lob e due to infectious organism J18.1 [facility] [address] [id number] [address] [place] [phone] Jul, [facility] [place] [address] [id number] [address] [place] [address] Jul, Pressure in chest R07.89 and Bronchitis J40 [facility] [place] [address] [id number] [address] [place] [phone] 03 Jul, 2017 Acute tonsillitis, unspecifi ed etiology J03.90 [facility] [address] [id number] [address] [place] [address] Jun, Encounter for immunization Z 23 [facility] [address] [facility] [id number] [address] [place] [id number] Feb, Dental examination Z01.20 [facility] [place] [address] [id number] [address] [place] [address] Dec, Dental examination Z01.20 [facility] [address] [id number] Oct, Dental examination Z01.20 [facility] [place] [id number] [place] [address] Oct, Dental examination Z01.20 [facility] [place] [address] [address] Jun, Encounter for immunization Z 23 [facility] [address] [address] Sep, Dysuria R30.0 and Urinary tr act infection N39.0 [facility] [address] [address] Aug, Abscess L02.91 [facility] [place] [address] [address] Jul, Cough R05 [facility] [address] [address] Jul, Viral syndrome B34.9 and Sea petra allergies J30.2 [facility] [place] [address] [address] Jun, Encounter for immunization Z 23 [facility] [place] [address] [address] Apr, TDAP DX V06.1 [facility] [place] [address] [address] Dec, [facility] [place] [address] [place] [address] Dec, [facility] [address] [id number] [address] [place] [address], [place] [address] Nov, [facility] [address] [id number] [address] [place] [address], [place] [address] Nov, [facility] [address] [id number] [address] [place] [address], [place] [address] Sep, [facility] [address] [id number] [address] [place] [address], [place] [address] Sep, [facility] [address] [id number] [address] [place] [address], [place] [address] Jun, [facility] [address] [id number] [address] [place] [address], [place] [address] Jun, [facility] [address] [id number] [address] [place] [address], [place] [address] January, [facility] [address] [id number] [address] [place] [address], [place] [address] January, [facility] [address] [id number] [address] [place] [address], [place] [address] January, [facility] [address] [id number] [address] [place] [address], [place] [address] January, [facility] [address] [id number] [address] [place] [address], [place] [address] Dec, [facility] [address] [id number] [address] [place] [address], [place] [address] Dec, [facility] [address] [id number] [address] [place] [address], [place] [address] Jun, [facility] [address] [id number] [address] [place] [address], [place] [address] Jun, [facility] [address] [id number] [address] [place] [address], [place] [address] Nov, [facility] [place] [address] [facility] [id number] [address] [place] [address] Nov, [facility] [address] [id number] [place] [id number] Jun, [facility] [place] [address] [facility] [id number] [address] [place] [address] Jun, [facility] [place] [address] [facility] [id number] [address] [place] [address] Jul, [facility] [place] [address] [facility] [id number] [address] [place] [address] Jun, [facility] [place] [address] [facility] [id number] [address] [place] [address] Apr, IMMUNIZATIONS No Known Immunizations SOCIAL HISTORY Never Assessed REASON FOR VISIT PLAN OF CARE VITAL SIGNS Height 66 in 2014-02-17 Weight 144 lbs 2014-02-17 Temperature 98.4 degrees Fahrenheit 2014-02-17 Heart Rate 76 bpm 2014-02-17 Respiratory Rate 18 2014-02-17 Blood pressure systolic 108 mmHg 2014-02-17 Blood pressure diastolic 82 mmHg 2014-02-17 MEDICATIONS No Known Medications RESULTS No Results PROCEDURES No Known procedures INSTRUCTIONS MEDICATIONS ADMINISTERED No Known Medications MEDICAL (GENERAL) HISTORY Type Description Date Medical History Hyperlipidemia Medical History seasonal allergies Medical History cancer/radiation Surgical History Lumpectomy 03/28/16
--- OUTSIDE RECORDS SUMMARY | 2019-12-30 11:37 | XMS REPORT ---
Author Author Alice VALDOVINOS Organization [facility] Address [address] [place] [address] Care Team Providers Care Cash Management Coordinator Name Role Phone DEEPA VALDOVINOS Unavailable PROBLEMS No Known Problems ALLERGIES No Information ENCOUNTERS Encounter Location Date Diagnosis [facility] [address] [id number] [address] [place] [phone] Jun, Encounter for immunization Z 23 [facility] [address] [id number] [address] [place] [id number] 14 Jul, 2018 Pneumonia due to infectious organism, unspecified laterality, unspecified part of lung J18.9 [facility] [address] [id number] [address] [place] [phone] Jul, [facility] [address] [id number] [address] [place] [address] Jul, Pneumonia due to infectious organism, unspecified laterality, unspecified part of lung J18.9 [facility] [address] [id number] [address] [place] [address] Jun, Encounter for immunization Z 23 [facility] [address] [id number] [address] [place] [phone] January, Pneumonia of right lower lob e due to infectious organism J18.1 [facility] [address] [id number] [address] [place] [phone] Jul, [facility] [address] [id number] [address] [place] [address] Jul, Pressure in chest R07.89 and Bronchitis J40 [place] [address] [id number] [address] [place] [address] Jul, Acute tonsillitis, unspecifi ed etiology J03.90 [facility] [address] [id number] [address] [place] [address] Jun, Encounter for immunization Z 23 [facility] [address] [facility] [id number] [address] [place] [address] [id number] Feb, Dental examination Z01.20 [facility] [address] [id number] [address] [place] [address] Dec, Dental examination Z01.20 [facility] [address] [facility] [id number] [address] [place] [address] [id number] Oct, Dental examination Z01.20 [facility] [address] [address] Oct, Dental examination Z01.20 [facility] [address] [address] Jun, Encounter for immunization Z 23 [facility] [address] [address] Sep, Dysuria R30.0 and Urinary tr act infection N39.0 [facility] [address] [address] Aug, Abscess L02.91 [facility] [address] [address] Jul, Cough R05 [facility] [address] [address] Jul, Viral syndrome B34.9 and Sea petra allergies J30.2 [facility] [address] [address] Jun, Encounter for immunization Z 23 [facility] [address] [address] Apr, TDAP DX V06.1 [facility] [address] [place] [address] 14 Dec, 2014 [facility] [address] [id number] [address] [place] [address], [place] [address] Dec, [facility] [address] [id number] [address] [place] [address], [place] [address] Nov, [facility] [address] [id number] [address] [place] [address], [place] [address] Nov, [facility] [address] [id number] [address] [place] [address], [place] [address] Sep, [facility] [address] [id number] [address] [place] [address], [place] [address] Sep, [facility] [address] [id number] [address] [place] [address], [place] [address] Jun, [facility] [address] [id number] [address] [place] [address], [place] [address] Jun, [facility] [address] [id number] [address] [place] [address], [place] [address] January, [facility] [address] [id number] [address] [place] [address], [place] [address] January, [facility] [address] [id number] [address] [place] [address], [place] [address] January, [facility] [address] [id number] [address] [place] [address], [place] [address] January, [facility] [address] [id number] [address] [place] [address], [place] [address] Dec, [facility] [address] [id number] [address] [place] [address], [place] [address] Dec, [facility] [address] [id number] [address] [place] [address], [place] [address] Jun, [facility] [address] [id number] [address] [place] [address], [place] [address] Jun, [facility] [address] [id number] [address] [place] [id number] Nov, [facility] [address] [facility] [id number] [address] [place] [address] Nov, [facility] [address] [id number] [place] [id number] Jun, [facility] [address] [facility] [id number] [address] [place] [id number] Jun, [facility] [address] [facility] [id number] [address] [place] [phone] Jul, [facility] [address] [facility] [id number] [address] [place] [address] Jun, [facility] [address] [facility] [id number] [address] [place] [phone] Apr, IMMUNIZATIONS No Known Immunizations SOCIAL HISTORY Never Assessed REASON FOR VISIT PLAN OF CARE VITAL SIGNS MEDICATIONS Unknown Medications RESULTS No Results PROCEDURES No Known procedures INSTRUCTIONS MEDICATIONS ADMINISTERED No Known Medications MEDICAL (GENERAL) HISTORY Type Description Date Medical History Hyperlipidemia Medical History seasonal allergies Medical History cancer/radiation Surgical History Lumpectomy 03/28/16
--- OUTSIDE RECORDS SUMMARY | 2019-12-30 11:37 | XMS REPORT ---
Author Author Alice Roca Doctor Organization [facility] Address Unknown Phone Unavailable Care Team Providers Care Umbrella Mender Name Role Phone Migration, Doctor Unavailable Unavailable PROBLEMS No Known Problems ALLERGIES No Information ENCOUNTERS Encounter Location Date Diagnosis [facility] [address] [place] [id number] [address] [place] [phone] 14 Jul, 2018 Pneumonia due to infectious organism, unspecified laterality, unspecified part of lung J18.9 [facility] [address] [place] [address] [id number] [address] [place] [address] Jul, [facility] [address] [place] [address] [id number] [place] [address] Jul, Pneumonia due to infectious organism, unspecified laterality, unspecified part of lung J18.9 [facility] [address] [place] [address] [id number] [address] [place] [address] Jun, Encounter for immunization Z 23 [facility] IN [facility] [address] [id number] [address] [place] [address] January, Pneumonia of right lower lob e due to infectious organism J18.1 [facility] IN [facility] [address] [place] [address] Jul, [facility] [address] [id number] [place] [address] Jul, Pressure in chest R07.89 and Bronchitis J40 [facility] [address] [place] [id number] [address] [place] [address] Jul, Acute tonsillitis, unspecifi ed etiology J03.90 [facility] IN [facility] [address] [place] [id number] [address] [place] [address] Jun, Encounter for immunization Z 23 [facility] [address] [place] [address] [id number] [address] [place] [id number] Feb, Dental examination Z01.20 [facility] [address] [address] Dec, Dental examination Z01.20 [facility] [address] [facility] [id number] [address] [place] [id number] Oct, Dental examination Z01.20 [facility] [address] [place] [id number] [address] [place] [address] Oct, Dental examination Z01.20 [facility] [address] [address] Jun, Encounter for immunization Z 23 [facility] [address] [address] Sep, Dysuria R30.0 and Urinary tr act infection N39.0 [facility] [address] [address] Aug, Abscess L02.91 [facility] [address] [address] Jul, Cough R05 [facility] [address] [address] 07 Jul, 2015 Viral syndrome B34.9 and Sea petra allergies J30.2 [facility] [address] [address] Jun, Encounter for immunization Z 23 [facility] [address] [address] Apr, TDAP DX V06.1 [place] [address] [address] 14 Dec, 2014 [facility] [address] [address] Dec, [facility] [address] [id number] [address] [place] [address], [place] [address] Nov, [facility] [address] [id number] [address] [place] [address], [place] [address] Nov, [facility] [address] [id number] [address] [place] [address], [place] [address] Sep, [facility] [address] [id number] [address] [place] [address], [place] [address] Sep, [facility] [address] [id number] [address] [place] [address], [place] [address] Jun, [facility] [address] [id number] [address] [place] [address], [place] [address] Jun, [facility] [address] [id number] [address] [place] [address], [place] [address] January, [facility] [address] [id number] [address] [place] [address], [place] [address] January, [facility] [address] [id number] [address] [place] [address], [place] [address] January, [facility] [address] [id number] [address] [place] [address], [place] [address] January, [facility] [address] [id number] [address] [place] [address], [place] [address] Dec, [facility] [address] [id number] [address] [place] [address], [place] [address] Dec, [facility] [address] [id number] [address] [place] [address], [place] [address] Jun, [facility] [address] [id number] [address] [place] [address], [place] [address] Jun, [facility] [address] [id number] [address] [place] [address], [place] [address] Nov, [facility] [address] [id number] [address] [place] [address], [place] [address] Nov, [facility] [address] [id number] ISSACChris S [id number] Jun, [facility] [address] [facility] [id number] [address] [place] [address] Jun, [facility] [address] [facility] [id number] [address] [place] [address] Jul, [facility] [address] [facility] [id number] [address] [place] [address] Jun, [facility] [address] [facility] [id number] [address] [place] [address] Apr, IMMUNIZATIONS No Known Immunizations SOCIAL HISTORY Never Assessed REASON FOR VISIT PLAN OF CARE VITAL SIGNS MEDICATIONS No Known Medications RESULTS No Results PROCEDURES No Known procedures INSTRUCTIONS MEDICATIONS ADMINISTERED No Known Medications MEDICAL (GENERAL) HISTORY Type Description Date Medical History Hyperlipidemia Medical History seasonal allergies Medical History cancer/radiation Surgical History Lumpectomy 03/28/16
--- OUTSIDE RECORDS SUMMARY | 2019-12-30 11:37 | XMS REPORT ---
Author Author Alice CASAREZ Organization [facility] Address [address] [place] [address] Care Team Providers Care Marine Services Technician Name Role Phone HERMELINDO NANCI Unavailable PROBLEMS Type Condition ICD9-CM Code CAQ10-YM Code Onset Dates Condition S tatus SNOMED Code Problem Acute sinusitis, unspecified 461.9 A ctive 95235708 Problem Actinic keratosis 702.0 Active 20 8716828 Problem Cough 786.2 Active 54400460 Problem Need for prophylactic vaccination and inoculation, Influen za V04.81 Active 211938380 Problem Fever, unspecified 780.60 Active 3 22763970 Problem Other malaise and fatigue 780.79 Acti ve [id number] ALLERGIES No Known Allergies ENCOUNTERS Encounter Location Date Diagnosis [facility] [address] [address] January, Pneumonia of right lower lob e due to infectious organism J18.1 [facility] [address] [place] [address] [id number] [address] [place] [address] Jul, [place] [address] [address] Jul, Pressure in chest R07.89 and Bronchitis J40 [facility] [address] [place] [address] [id number] [address] [place] [address] Jul, Acute tonsillitis, unspecifi ed etiology J03.90 [facility] [address] [id number] [address] [place] [address] Jun, Encounter for immunization Z 23 [facility] [address] [facility] [id number] [address] [place] [id number] 09 Feb, 2017 Dental examination Z01.20 [facility] [address] [facility] [id number] [address] [place] [phone] 05 Dec, 2016 Dental examination Z01.20 [facility] [address] [id number] [address] [place] [id number] 24 Oct, 2016 Dental examination Z01.20 [facility] [address] [facility] [id number] [address] [place] [address] Oct, Dental examination Z01.20 [facility] [address] [place] [address] [id number] [address] [place] [address] Jun, Encounter for immunization Z 23 [facility] [address] [address] Sep, Dysuria R30.0 and Urinary tr act infection N39.0 [facility] [address] [address] Aug, Abscess L02.91 [facility] [address] [address] Jul, Cough R05 [facility] [address] [address] Jul, Viral syndrome B34.9 and Sea petra allergies J30.2 [facility] [address] [address] [id number] [address] [place] [address] Jun, Encounter for immunization Z 23 [facility] [address] [place] [id number] [address] [place] [address] Apr, TDAP DX V06.1 [facility] [address] [id number] [address] [place] [address] Dec, [facility] [address] [address] Dec, [facility] [address] [address] Nov, [facility] [address] [place] [address] Nov, [facility] [address] [id number] [address] [place] [address], [place] [address] Sep, [facility] [address] [id number] [address] [place] [address], [place] [address] Sep, [facility] [address] [id number] [address] [place] [address], [place] [address] Jun, [facility] [address] [id number] [address] [place] [address], [place] [address] Jun, [facility] [address] [id number] [address] [place] [address], [place] [address] January, [facility] [address] [id number] [address] [place] [address], [place] [address] January, [facility] [address] [id number] [address] [place] [address], [place] [address] January, [facility] [address] [id number] [address] [place] [address], [place] [address] January, [facility] [address] [id number] [address] [place] [address], [place] [address] Dec, [facility] [address] [id number] [address] [place] [address], [place] [address] Dec, [facility] [address] [id number] [address] [place] [address], [place] [address] Jun, [facility] [address] [id number] [address] [place] [address], [place] [address] Jun, [facility] [address] [id number] [address] [place] [address], [place] [address] Nov, [facility] [address] [id number] [address] [place] [address], [place] [address] Nov, [facility] [place] [address] [id number] [place] [id number] Jun, [facility] [address] [facility] [id number] [address] [place] [address] Jun, [facility] [address] [facility] [id number] [address] [place] [address] Jul, [facility] [address] [facility] [id number] [address] [place] [address] Jun, [facility] [address] [facility] [id number] [address] [place] [address] Apr, IMMUNIZATIONS No Known Immunizations SOCIAL HISTORY Never Assessed REASON FOR VISIT Cough JStrasserRN PLAN OF CARE Activity Details Follow Up prn Reason: VITAL SIGNS Height 66 in 2018-01-28 Weight 141.0 lbs 2018-01-28 Temperature 100.3 degrees Fahrenheit 2018-01-28 Heart Rate 88 bpm 2018-01-28 Respiratory Rate 20 2018-01-28 BMI 22.76 kg/m2 2018-01-28 Blood pressure systolic 114 mmHg 2018-01-28 Blood pressure diastolic 78 mmHg 2018-01-28 MEDICATIONS Medication Instructions Dosage Frequency Start Date End Date Duration S tatus Xyzal 5 MG Orally Once a day 1 tablet in the evening 24h Unknown PredniSONE 20 MG Orally Once a day 2 tablet 24h January, January, 5 days Active Azithromycin 250 MG Orally Once a day 2 tablets on the rst day, then 1 tablet daily for 4 days 24h January, January, 5 day(s) Active Simvastatin 10 MG Orally Once a day 1 tablet in the evening 24h Unknown RESULTS No Results PROCEDURES No Known procedures INSTRUCTIONS MEDICATIONS ADMINISTERED No Known Medications MEDICAL (GENERAL) HISTORY Type Description Date Medical History Hyperlipidemia Medical History seasonal allergies Medical History cancer/radiation Surgical History Lumpectomy 03/28/16
--- OUTSIDE RECORDS SUMMARY | 2019-12-30 11:37 | XMS REPORT ---
Author Author Alice CONROY Organization [facility] Address [address] [place] [address] Care Team Providers Care Oyster Harvester Name Role Phone TAJ CONROY Unavailable PROBLEMS No Known Problems ALLERGIES No Information ENCOUNTERS Encounter Location Date Diagnosis [place] [address] [address] Jun, Encounter for immunization Z23 [facility] [place] [address] [place] [phone] 14 Jul, 2018 Pneumonia due to infectious organism, unspecified laterality, unspecified part of lung J18.9 [place] [address] [address] Jul, [address] [address] Jul, Pneumonia due to infectious organism, un specified laterality, unspecified part of lung J18.9 [place] [address] [address] Jun, Encounter for immunization Z23 [facility] [place] [address] [place] [address] January, Pneumonia of right lower lob e due to infectious organism J18.1 [facility] IN [place] [address] [place] [id number] [address] [place] [address] Jul, [place] [address] [address] Jul, Pressure in chest R07.89 and Bronchitis J40 [place] [address] [address] Jul, Acute tonsillitis, unspecified etiology J03.90 [facility] [address] [place] [address] [id number] [address] [place] [address] Jun, Encounter for immunization Z 23 [facility] [address] [id number] Feb, Dental examination Z01.20 [facility] [address] [address] Dec, Dental examination Z01.20 [facility] [address] [id number] Oct, Dental examination Z01.20 [facility] [address] [address] Oct, Dental examination Z01.20 [facility] [address] [address] Jun, Encounter for immunization Z23 [facility] [address] [address] Sep, Dysuria R30.0 and Urinary tr act infection N39.0 [facility] [place] [address] [address] Aug, Abscess L02.91 [place] [address] [address] Jul, Cough R05 [facility] [place] [address] [address] Jul, Viral syndrome B34.9 and Sea petra allergies J30.2 [place] [address] [address] Jun, Encounter for immunization Z23 [place] [address] [address] Apr, TDAP DX V06.1 [place] [address] [address] Dec, [place] [address] [place] [address] [place] [address] Dec, [facility] [address] [id number] [place] [address] Nov, [facility] [address] [id number] [place] [address] Nov, [facility] [address] [id number] [place] [address] Sep, [facility] [address] [id number] [place] [address] Sep, [facility] [address] [id number] [place] [address] Jun, [facility] [address] [id number] [place] [address] Jun, [facility] [address] [id number] [place] [address] January, [facility] [address] [id number] [place] [address] January, [facility] [address] [id number] [place] [address] January, [facility] [address] [id number] [place] [address] January, [facility] [address] [id number] [place] [address] Dec, [facility] [address] [id number] [place] [address] Dec, [facility] [address] [id number] [place] [address] Jun, [facility] [address] [id number] [place] [address] Jun, [facility] [address] [id number] [place] [address] Nov, [facility] [address] [id number] [place] [address] Nov, [facility] [address] [facility] [id number] [place] [id number] Jun, [facility] [address] [id number] [place] [address] Jun, [facility] [address] [id number] [place] [address] Jul, [facility] [address] [id number] [place] [address] Jun, [facility] [address] [id number] [place] [address] Apr, IMMUNIZATIONS No Known Immunizations SOCIAL HISTORY Never Assessed REASON FOR VISIT PLAN OF CARE VITAL SIGNS Height 66 in 2014-02-02 Weight 144.06 lbs 2014-02-02 Temperature 100 degrees Fahrenheit 2014-02-02 Heart Rate 76 bpm 2014-02-02 Respiratory Rate 18 2014-02-02 Blood pressure systolic 108 mmHg 2014-02-02 Blood pressure diastolic 74 mmHg 2014-02-02 MEDICATIONS Unknown Medications RESULTS No Results PROCEDURES Procedure Date Ordered Result Body Site STREP A ASSAY W/OPTIC February 02, 2014 INSTRUCTIONS MEDICATIONS ADMINISTERED No Known Medications MEDICAL (GENERAL) HISTORY Type Description Date Medical History Hyperlipidemia Medical History seasonal allergies Medical History cancer/radiation Surgical History Lumpectomy 03/28/16
--- OUTSIDE RECORDS SUMMARY | 2019-12-30 11:37 | XMS REPORT ---
Author Author Alice Roca Doctor Organization [facility] Address Unknown Phone Unavailable Care Team Providers Care Maintenance Clerk Name Role Phone Migration, Doctor Unavailable Unavailable PROBLEMS No Known Problems ALLERGIES No Information ENCOUNTERS Encounter Location Date Diagnosis [facility] [address] [id number] [address] [place] [address] 14 Jul, 2018 Pneumonia due to infectious organism, unspecified laterality, unspecified part of lung J18.9 [facility] [address] [id number] [address] [place] [address] Jul, [facility] [id number] [place] [address] Jul, Pneumonia due to infectious organism, unspecified laterality, unspecified part of lung J18.9 [facility] [address] [id number] [address] [place] [address] Jun, Encounter for immunization Z 23 [facility] IN [facility] [address] [id number] [address] [place] [address] January, Pneumonia of right lower lob e due to infectious organism J18.1 [facility] IN [facility] [address] [place] [address] Jul, [facility] [id number] [place] [address] Jul, Pressure in chest R07.89 and Bronchitis J40 [facility] [address] [id number] [address] [place] [address] Jul, Acute tonsillitis, unspecifi ed etiology J03.90 [facility] IN [facility] [address] [id number] [address] [place] [address] Jun, Encounter for immunization Z 23 [facility] [address] [id number] [address] [place] [id number] Feb, Dental examination Z01.20 [facility] [address] [address] Dec, Dental examination Z01.20 [facility] [address] [facility] [id number] [address] [place] [id number] Oct, Dental examination Z01.20 [facility] [address] [id number] [address] [place] [address] Oct, Dental examination Z01.20 [facility] [address] [address] Jun, Encounter for immunization Z 23 [facility] [address] [address] Sep, Dysuria R30.0 and Urinary tr act infection N39.0 [facility] [address] [address] Aug, Abscess L02.91 [facility] [address] [address] Jul, Cough R05 [facility] [address] [address] 07 Jul, 2015 Viral syndrome B34.9 and Sea petra allergies J30.2 [facility] [address] [address] Jun, Encounter for immunization Z 23 [facility] [address] [address] Apr, TDAP DX V06.1 [place] [address] [address] 14 Dec, 2014 [facility] [address] [address] Dec, [facility] [address] [id number] [address] [place] [address], [place] [address] Nov, [facility] [address] [id number] [address] [place] [address], [place] [address] Nov, [facility] [address] [id number] [address] [place] [address], [place] [address] Sep, [facility] [address] [id number] [address] [place] [address], [place] [address] Sep, [facility] [address] [id number] [address] [place] [address], [place] [address] Jun, [facility] [address] [id number] [address] [place] [address], [place] [address] Jun, [facility] [address] [id number] [address] [place] [address], [place] [address] January, [facility] [address] [id number] [address] [place] [address], [place] [address] January, [facility] [address] [id number] [address] [place] [address], [place] [address] January, [facility] [address] [id number] [address] [place] [address], [place] [address] January, [facility] [address] [id number] [address] [place] [address], [place] [address] Dec, [facility] [address] [id number] [address] [place] [address], [place] [address] Dec, [facility] [address] [id number] [address] [place] [address], [place] [address] Jun, [facility] [address] [id number] [address] [place] [address], [place] [address] Jun, [facility] [address] [id number] [address] [place] [address], [place] [address] Nov, [facility] [address] [id number] [address] [place] [address], [place] [address] Nov, [facility] [address] [id number] [place] [id number] Jun, [facility] [address] [facility] [id number] [address] [place] [address] Jun, [facility] [address] [facility] [id number] [address] [place] [address] Jul, [facility] [address] [facility] [id number] [address] [place] [address] Jun, [facility] [address] [facility] [id number] [address] [place] [address] Apr, IMMUNIZATIONS No Known Immunizations SOCIAL HISTORY Never Assessed REASON FOR VISIT [facility] PLAN OF CARE VITAL SIGNS MEDICATIONS Medication Instructions Dosage Frequency Start Date End Date Duration S tatus Amoxicillin 500 mg 1 capsule by Oral route 3 times per day for 14 days Dec, Active Doxycycline Hyclate 100 mg [address] Oral [address] e 2 times per day for 14 days January, Active Augmentin 875-125 mg 1 tablet by Oral route 2 times pe r day for 10 day(s) Nov, Active Levaquin 500 mg 1 tablet by Oral route every 24 hours for 10 days Sep, Active Zithromax Z-Patel 250 mg 2 tablet by Oral route 1 time per day for 1 days then take 1 tab daily on days 2-5 January, Active RESULTS No Results PROCEDURES No Known procedures INSTRUCTIONS MEDICATIONS ADMINISTERED No Known Medications MEDICAL (GENERAL) HISTORY Type Description Date Medical History Hyperlipidemia Medical History seasonal allergies Medical History cancer/radiation Surgical History Lumpectomy 03/28/16
--- OUTSIDE RECORDS SUMMARY | 2019-12-30 11:37 | XMS REPORT ---
Author Author Alice CAMACHO [facility] IN [facility] Address [address] [place] [address] Care Team Providers Care Greeter Guest Services Name Role Phone DAVINA CAMACHO Unavailable PROBLEMS No Known Problems ALLERGIES No Known Allergies ENCOUNTERS Encounter Location Date Diagnosis [facility] IN [facility] [address] [facility] [id number] [address] [place] [address] 14 Jul, 2018 Pneumonia due to infectious organism, unspecified laterality, unspecified part of lung J18.9 [place] [id number] [facility] [id number] [address] [place] [address] Jul, [facility] [address] [id number] [address] [place] [address] Jul, Pneumonia due to infectious organism, unspecified laterality, unspecified part of lung J18.9 [facility] [address] [facility] [id number] [address] [place] [address] 02 Jun, 2018 Encounter for immunization Z 23 [facility] IN [facility] [address] [facility] [id number] [address] [place] [address] January, Pneumonia of right lower lob e due to infectious organism J18.1 [facility] IN [facility] [address] [facility] [id number] [address] [place] [address] Jul, [facility] [address] [facility] [id number] [address] [place] [address] Jul, Pressure in chest R07.89 and Bronchitis J40 [place] [address] [facility] [id number] [address] [place] [address] 03 Jul, 2017 Acute tonsillitis, unspecifi ed etiology J03.90 [facility] IN [facility] [address] [place] [address] Jun, Encounter for immunization Z 23 [facility] [address] [id number] [address] [place] [id number] Feb, Dental examination Z01.20 [facility] [address] [facility] [id number] [address] [place] [address] Dec, Dental examination Z01.20 [facility] [address] [id number] [address] [place] [id number] Oct, Dental examination Z01.20 [facility] [address] [facility] [id number] [address] [place] [address] Oct, Dental examination Z01.20 [facility] [address] [id number] [address] [place] [address] Jun, Encounter for immunization Z 23 [facility] [address] [id number] [address] [place] [address] Sep, Dysuria R30.0 and Urinary tr act infection N39.0 [facility] [address] [id number] [address] [place] [address] Aug, Abscess L02.91 [facility] [address] [id number] [address] [place] [address] Jul, Cough R05 [facility] [address] [id number] [address] [place] [address] Jul, Viral syndrome B34.9 and Sea petra allergies J30.2 [facility] [address] [id number] [address] [place] [address] Jun, Encounter for immunization Z 23 [facility] [address] [id number] [address] [place] [address] Apr, TDAP DX V06.1 [facility] [address] [place] [address] Dec, [facility] [address] [id number] [address] [place] [address], [place] [address] Dec, [facility] [address] [id number] [address] [place] [address], [place] [address] Nov, [facility] [address] [id number] [address] [place] [address], [place] [address] Nov, [facility] [address] [id number] [address] [place] [address], [place] [address] Sep, [facility] [address] [id number] [address] [place] [address], [place] [address] Sep, [facility] [address] [id number] [address] [place] [address], [place] [address] Jun, [facility] [address] [id number] [address] [place] [address], [place] [address] Jun, [facility] [address] [id number] [address] [place] [address], [place] [address] January, [facility] [address] [id number] [address] [place] [address], [place] [address] January, [facility] [address] [id number] [address] [place] [address], [place] [address] January, [facility] [address] [id number] [address] [place] [address], [place] [address] January, [facility] [address] [id number] [address] [place] [address], [place] [address] Dec, [facility] [address] [id number] [address] [place] [address], [place] [address] Dec, [facility] [address] [id number] [address] [place] [address], [place] [address] Jun, [facility] [address] [id number] [address] [place] [address], [place] [address] Jun, [facility] [address] [id number] [address] [place] [address], [place] [address] Nov, [facility] [address] [facility] [id number] [address] [address] Nov, [facility] [address] [id number] [place] [id number] Jun, [facility] [address] [facility] [id number] [address] [place] [address] Jun, [facility] [address] [facility] [id number] [address] [place] [address] Jul, [facility] [address] [facility] [id number] [address] [place] [address] Jun, [facility] [address] [facility] [id number] [address] [place] [address] Apr, IMMUNIZATIONS No Known Immunizations SOCIAL HISTORY Never Assessed REASON FOR VISIT Pneumonia; Levofloxacin causing palpatations, not sleeping well, heaviness in jacob Stephenson MA PLAN OF CARE Activity Details Follow Up prn Reason: VITAL SIGNS Height 66 in 2018-08-05 Weight 136.0 lbs 2018-08-05 Temperature 98.3 degrees Fahrenheit 2018-08-05 Heart Rate 76 bpm 2018-08-05 Respiratory Rate 18 2018-08-05 BMI 21.95 kg/m2 2018-08-05 Blood pressure systolic 100 mmHg 2018-08-05 Blood pressure diastolic 70 mmHg 2018-08-05 MEDICATIONS Medication Instructions Dosage Frequency Start Date End Date Duration S tatus Lipitor 10 MG Orally Once a day 1 tablet 24h 30 day( s) Active Azithromycin 250 MG Orally Once a day 2 tablets on the rst day, then 1 tablet daily for 4 days 24h Jul, 5 day(s) Active Tamoxifen Citrate 10 MG Orally Twice a day 1 tablet 12h 30 day(s) Active RESULTS No Results PROCEDURES No Known procedures INSTRUCTIONS MEDICATIONS ADMINISTERED No Known Medications MEDICAL (GENERAL) HISTORY Type Description Date Medical History Hyperlipidemia Medical History seasonal allergies Medical History cancer/radiation Surgical History Lumpectomy 03/28/16
--- OUTSIDE RECORDS SUMMARY | 2019-12-30 11:37 | XMS REPORT ---
Author Author Alice JO Organization [facility] Address [address] [place] [address] Care Team Providers Care Configuration Management Analyst Name Role Phone ZOILA JO Unavailable PROBLEMS Type Condition ICD9-CM Code [id number] Code Onset Dates Condition S tatus SNOMED Code Problem Acute sinusitis, unspecified 461.9 A ctive 73717180 Problem Actinic keratosis 702.0 Active 20 7293069 Problem Cough 786.2 Active 02107594 Problem Need for prophylactic vaccination and inoculation, Influen za V04.81 Active 489890180 Problem Fever, unspecified 780.60 Active 3 26753493 Problem Other malaise and fatigue 780.79 Acti ve [id number] ALLERGIES No Information ENCOUNTERS Encounter Location Date Diagnosis [facility] [address] [address] Jun, Encounter for immunization Z 23 [facility] [address] [address] January, Pneumonia of right lower lob e due to infectious organism J18.1 [facility] IN [facility] [address] [address] Jul, [facility] [address] [address] Jul, Pressure in chest R07.89 and Bronchitis J40 [facility] [address] [place] [address] Jul, Acute tonsillitis, unspecifi ed etiology J03.90 [facility] IN [facility] [address] [address] Jun, Encounter for immunization Z 23 [facility] [address] [place] [id number] Feb, Dental examination Z01.20 [facility] [address] [address] Dec, Dental examination Z01.20 [facility] [address] [id number] [address] [place] [id number] Oct, Dental examination Z01.20 [facility] [address] [address] Oct, Dental examination Z01.20 [facility] [address] [address] Jun, Encounter for immunization Z 23 [facility] [address] [address] Sep, Dysuria R30.0 and Urinary tr act infection N39.0 [facility] [address] [address] Aug, Abscess L02.91 [facility] [address] [address] Jul, Cough R05 [facility] [address] [address] Jul, Viral syndrome B34.9 and Sea petra allergies J30.2 [facility] [address] [address] Jun, Encounter for immunization Z 23 [facility] [address] [address] Apr, TDAP DX V06.1 [place] [address] [address] 14 Dec, 2014 [facility] [address] [address] Dec, [facility] [address] [place] [address] Nov, [facility] [address] [id number] [address] [place] [address], [place] [address] Nov, [facility] [address] [id number] [address] [place] [address], [place] [address] Sep, [facility] [address] [id number] [address] [place] [address], [place] [address] Sep, [facility] [address] [id number] [address] [place] [address], [place] [address] Jun, [facility] [address] [id number] [address] [place] [address], [place] [address] Jun, [facility] [address] [id number] [address] [place] [address], [place] [address] January, [facility] [address] [id number] [address] [place] [address], [place] [address] January, [facility] [address] [id number] [address] [place] [address], [place] [address] January, [facility] [address] [id number] [address] [place] [address], [place] [address] January, [facility] [address] [id number] [address] [place] [address], [place] [address] Dec, [facility] [address] [id number] [address] [place] [address], [place] [address] Dec, [facility] [address] [id number] [address] [place] [address], [place] [address] Jun, [facility] [address] [id number] [address] [place] [address], [place] [address] Jun, [facility] [address] [id number] [address] [place] [address], [place] [address] Nov, [facility] [address] [id number] [address] [place] [address], [place] [address] Nov, [facility] [address] [id number] ISSACChris [id number] Jun, [facility] [address] [facility] [id number] [address] [place] [address] Jun, [facility] [address] [facility] [id number] [address] [place] [address] Jul, [facility] [address] [facility] [id number] [address] [place] [address] Jun, [facility] [address] [facility] [id number] [address] [place] [address] Apr, IMMUNIZATIONS Vaccine Route Administration Date Status FLULAVAL QUAD 0.5ML (6 MO & UP) 2017 IM Intramuscular Jun 23 18 Administered SOCIAL HISTORY Never Assessed REASON FOR VISIT flu injection janay lujan PLAN OF CARE VITAL SIGNS MEDICATIONS Unknown Medications RESULTS No Results PROCEDURES Procedure Date Ordered Result Body Site FLULAVAL QUAD 0.5ML (6 MO AND UP) 2017Jun 23, 2018 SINGLE IMMUNIZATION ADMIN Jun 23, 2018 INSTRUCTIONS MEDICATIONS ADMINISTERED No Known Medications MEDICAL (GENERAL) HISTORY Type Description Date Medical History Hyperlipidemia Medical History seasonal allergies Medical History cancer/radiation Surgical History Lumpectomy 03/28/16
[2019-12-30 11:38] LABS: BASOPHILS % (AUTO) 1 % (0-10); EOSINOPHILS % (AUTO) 1 % (0-10); HEMATOCRIT 42 % (35-52); HEMOGLOBIN 13.7 G/DL (11.5-16.0); LYMPHOCYTES # (AUTO) 1.9 X 10^3 (1.0-4.0); LYMPHOCYTES % (AUTO) 23 % (12-44); MEAN CORPUSCULAR HEMOGLOBIN 30 PG (25-34); MEAN CORPUSCULAR HGB CONC 33 G/DL (32-36); MEAN CORPUSCULAR VOLUME 91 FL (80-99); MEAN PLATELET VOLUME 11.5 FL (7.4-10.4); MONOCYTES # (AUTO) 0.6 X 10^3 (0.0-1.0); MONOCYTES % (AUTO) 7 % (0-12); NEUTROPHILS # (AUTO) 5.8 X 10^3 (1.8-7.8); NEUTROPHILS % (AUTO) 69 % (42-75); PLATELET COUNT 210 10^3/uL (130-400); RED CELL DISTRIBUTION WIDTH 13.6 % (10.0-14.5); WHITE BLOOD COUNT 8.4 10^3/uL (4.3-11.0)
--- OUTSIDE RECORDS SUMMARY | 2019-12-30 11:38 | XMS REPORT ---
Author Author MARGARITA Alicekacy BERRIOS Organization [facility] Address [address] [place] [address] Care Team Providers Care Bundle Clerk Name Role Phone AVILAAGUSTINA Saenz Unavailable PROBLEMS Type Condition ICD9-CM Code LUV75-XY Code Onset Dates Condition S tatus SNOMED Code Problem Acute sinusitis, unspecified 461.9 A ctive 91554443 Problem Actinic keratosis 702.0 Active 20 8539970 Problem Cough 786.2 Active 10840681 Problem Need for prophylactic vaccination and inoculation, Influen za V04.81 Active 596491734 Problem Fever, unspecified 780.60 Active 3 49587517 Problem Other malaise and fatigue 780.79 Acti ve [id number] ALLERGIES No Known Allergies ENCOUNTERS Encounter Location Date Diagnosis [facility] [address] [address] January, Pneumonia of right lower lob e due to infectious organism J18.1 [facility] [address] [id number] [address] [place] [phone] Jul, [facility] [address] [address] Jul, Pressure in chest R07.89 and Bronchitis J40 [facility] [address] [id number] [address] [place] [address] Jul, Acute tonsillitis, unspecifi ed etiology J03.90 [facility] [address] [address] Jun, Encounter for immunization Z 23 [facility] [address] [id number] [address] [place] [id number] 09 Feb, 2017 Dental examination Z01.20 [facility] [address] [id number] [address] [place] [id number] 05 Dec, 2016 Dental examination Z01.20 [facility] [address] [id number] [address] [place] [address] [id number] 24 Oct, 2016 Dental examination Z01.20 [facility] [address] [id number] [address] [place] [phone] Oct, Dental examination Z01.20 [facility] [address] [id number] [place] [address] Jun, Encounter for immunization Z 23 [facility] [address] [address] Sep, Dysuria R30.0 and Urinary tr act infection N39.0 [facility] [address] [address] Aug, Abscess L02.91 [facility] [address] [address] Jul, Cough R05 [facility] [address] [address] Jul, Viral syndrome B34.9 and Sea petra allergies J30.2 [facility] [address] [address] Jun, Encounter for immunization Z 23 [facility] [address] [id number] [place] [id number] 08 Apr, 2015 TDAP DX V06.1 [facility] [address] [address] Dec, [facility] [address] [address] Dec, [facility] [address] [address] Nov, [facility] [address] [place] [address] Nov, [facility] [address] [id number] [address] [place] [address], [place] [address] Sep, [facility] [address] [id number] [address] [place] [address], [place] [address] Sep, [facility] [address] [id number] [address] [place] [address], [place] [address] Jun, [facility] [address] [id number] [address] [place] [address], [place] [address] Jun, [facility] [address] [id number] [address] [place] [address], [place] [address] January, [facility] [address] [id number] [address] [place] [address], [place] [address] January, [facility] [address] [id number] [address] [place] [address], [place] [address] January, [facility] [address] [id number] [address] [place] [address], [place] [address] January, [facility] [address] [id number] [address] [place] [address], [place] [address] Dec, [facility] [address] [id number] [address] [place] [address], [place] [address] Dec, [facility] [address] [id number] [address] [place] [address], [place] [address] Jun, [facility] [address] [id number] [address] [place] [address], [place] [address] Jun, [facility] [address] [id number] [address] [place] [address], [place] [address] Nov, [facility] [address] [id number] [address] [place] [address], [place] [address] Nov, [facility] [address] [id number] [place] [id number] Jun, [facility] [address] [id number] [address] [place] [phone] Jun, [facility] [address] [facility] [id number] [address] [place] [phone] Jul, [facility] [address] [facility] [id number] [address] [place] [phone] Jun, [facility] [address] [facility] [id number] [address] [place] [address] Apr, IMMUNIZATIONS No Known Immunizations SOCIAL HISTORY Never Assessed REASON FOR VISIT Fever, pt. states sore throat since friday and low grade fever, and no energy--- CRyburn,CCMA PLAN OF CARE Activity Details Follow Up prn Reason: VITAL SIGNS Height 66 in 2017-07-25 Weight 140.3 lbs 2017-07-25 Temperature 99.0 degrees Fahrenheit 2017-07-25 Heart Rate 72 bpm 2017-07-25 Respiratory Rate 18 2017-07-25 BMI 22.64 kg/m2 2017-07-25 Blood pressure systolic 123 mmHg 2017-07-25 Blood pressure diastolic 77 mmHg 2017-07-25 MEDICATIONS Medication Instructions Dosage Frequency Start Date End Date Duration S tatus Simvastatin 10 MG Orally Once a day 1 tablet in the evening 24h Active Amoxicillin 500 mg Orally every 12 hrs 1 capsule 12h Jul, 7 13 Jul, 2017 10 day(s) Active RESULTS No Results PROCEDURES No Known procedures INSTRUCTIONS MEDICATIONS ADMINISTERED No Known Medications MEDICAL (GENERAL) HISTORY Type Description Date Medical History Hyperlipidemia Medical History seasonal allergies Medical History cancer/radiation Surgical History Lumpectomy 03/28/16
--- OUTSIDE RECORDS SUMMARY | 2019-12-30 11:38 | XMS REPORT ---
Author Author MARGARITA Alicekacy BERRIOS Organization [facility] Address [address] [place] [address] Care Team Providers Care Clinical Pharmacologist Name Role Phone AVILAAGUSTINA Saenz Unavailable PROBLEMS Type Condition ICD9-CM Code RVF81-SH Code Onset Dates Condition S tatus SNOMED Code Problem Acute sinusitis, unspecified 461.9 A ctive 20180939 Problem Actinic keratosis 702.0 Active 20 8158002 Problem Cough 786.2 Active 93405717 Problem Need for prophylactic vaccination and inoculation, Influen za V04.81 Active 754674315 Problem Fever, unspecified 780.60 Active 3 49274882 Problem Other malaise and fatigue 780.79 Acti ve [id number] ALLERGIES No Known Allergies ENCOUNTERS Encounter Location Date Diagnosis [facility] [address] [address] January, Pneumonia of right lower lob e due to infectious organism J18.1 [facility] [address] [id number] [address] [place] [address] Jul, [facility] [address] [address] Jul, Pressure in chest R07.89 and Bronchitis J40 [facility] [address] [id number] [address] [place] [address] Jul, Acute tonsillitis, unspecifi ed etiology J03.90 [facility] [address] [address] Jun, Encounter for immunization Z 23 [facility] [address] [id number] [address] [place] [id number] 09 Feb, 2017 Dental examination Z01.20 [facility] [address] [id number] [address] [place] [id number] 05 Dec, 2016 Dental examination Z01.20 [facility] [address] [id number] [address] [place] [id number] 24 Oct, 2016 Dental examination Z01.20 [facility] [address] [id number] [address] [place] [address] Oct, Dental examination Z01.20 [facility] [address] [id number] [address] [place] [address] Jun, Encounter for immunization Z 23 [facility] [address] [address] Sep, Dysuria R30.0 and Urinary tr act infection N39.0 [facility] [address] [address] Aug, Abscess L02.91 [facility] [address] [address] Jul, Cough R05 [facility] [address] [address] Jul, Viral syndrome B34.9 and Sea petra allergies J30.2 [facility] [address] [address] Jun, Encounter for immunization Z 23 [facility] [address] [id number] [address] [place] [id number] 08 Apr, 2015 TDAP DX V06.1 [facility] [address] [address] Dec, [facility] [address] [address] Dec, [facility] [address] [address] Nov, [facility] [address] [place] [address] Nov, [facility] [address] [id number] [address] [place] [address], [place] [address] Sep, [facility] [address] [id number] [address] [place] [address], [place] [address] Sep, [facility] [address] [id number] [address] [place] [address], [place] [address] Jun, [facility] [address] [id number] [address] [place] [address], [place] [address] Jun, [facility] [address] [id number] [address] [place] [address], [place] [address] January, [facility] [address] [id number] [address] [place] [address], [place] [address] January, [facility] [address] [id number] [address] [place] [address], [place] [address] January, [facility] [address] [id number] [address] [place] [address], [place] [address] January, [facility] [address] [id number] [address] [place] [address], [place] [address] Dec, [facility] [address] [id number] [address] [place] [address], [place] [address] Dec, [facility] [address] [id number] [address] [place] [address], [place] [address] Jun, [facility] [address] [id number] [address] [place] [address], [place] [address] Jun, [facility] [address] [id number] [address] [place] [address], [place] [address] Nov, [facility] [address] [id number] [address] [place] [address], [place] [address] Nov, [facility] [address] [id number] [place] [id number] Jun, [facility] [address] [id number] [address] [place] [phone] Jun, [facility] [address] [facility] [id number] [address] [place] [phone] Jul, [facility] [address] [facility] [id number] [address] [place] [phone] Jun, [facility] [address] [facility] [id number] [address] [place] [phone] Apr, IMMUNIZATIONS No Known Immunizations SOCIAL HISTORY Never Assessed REASON FOR VISIT Cough, pt. states she was seen about a month ago with fever and cough and now is back again and is now extremely fatigued---CRyburn,CCMA PLAN OF CARE Activity Details Follow Up prn Reason: VITAL SIGNS Height 66 in 2017-08-15 Weight 144.5 lbs 2017-08-15 Temperature 98.8 degrees Fahrenheit 2017-08-15 Heart Rate 72 bpm 2017-08-15 Respiratory Rate 18 2017-08-15 BMI 23.32 kg/m2 2017-08-15 Blood pressure systolic 117 mmHg 2017-08-15 Blood pressure diastolic 77 mmHg 2017-08-15 MEDICATIONS Medication Instructions Dosage Frequency Start Date End Date Duration S red Doxycycline Monohydrate 100 mg Orally every 12 hrs 1 capsule 12h Aug, Aug, 10 days Active Simvastatin 10 MG Orally Once a day 1 tablet in the evening 24h Active Xyzal 5 MG Orally Once a day 1 tablet in the evening 24h Not-Taking RESULTS No Results PROCEDURES Procedure Date Ordered Result Body Site EKG, TRACING (IN-HOUSE) 2017-08-15 N/A ELECTROCARDIOGRAM, TRACING Aug 15, 2017 INSTRUCTIONS MEDICATIONS ADMINISTERED No Known Medications MEDICAL (GENERAL) HISTORY Type Description Date Medical History Hyperlipidemia Medical History seasonal allergies Medical History cancer/radiation Surgical History Lumpectomy 03/28/16
[2019-12-30 11:49] LABS: ALBUMIN 4.3 GM/DL (3.2-4.5); CHLORIDE 108 MMOL/L (98-107); POTASSIUM 4.2 MMOL/L (3.6-5.0); SODIUM 142 MMOL/L (135-145)
[2019-12-30 11:50] LABS: CALCIUM 10.5 MG/DL (8.5-10.1); PROTHROMBIN TIME PATIENT 13.3 SEC (12.2-14.7)
[2019-12-30 11:51] LABS: GLUCOSE 121 MG/DL (70-105); TOTAL PROTEIN 7.3 GM/DL (6.4-8.2)
[2019-12-30 11:52] LABS: CARBON DIOXIDE 23 MMOL/L (21-32)
[2019-12-30 11:53] LABS: BILIRUBIN,TOTAL 0.4 MG/DL (0.1-1.0)
[2019-12-30 11:55] LABS: ALKALINE PHOSPHATASE 41 U/L (40-136); CREATININE SERUM 0.81 MG/DL (0.60-1.30); GFR ESTIMATED > 60
[2019-12-30 11:56] LABS: BUN/CREATININE RATIO 22
[2019-12-30 11:57] LABS: MAGNESIUM 2.3 MG/DL (1.6-2.4)
[2019-12-30 11:58] LABS: ALANINE AMINOTRANSFERASE 16 U/L (0-55)
[2019-12-30 11:59] LABS: LIPASE 33 U/L (8-78)
--- NOTE | 2019-12-30 12:05 | Diagnostic Imaging Report ---
INDICATION: Chest pain. COMPARISON: December 20, 2019. TECHNIQUE: Single radiograph of the chest dated December 30, 2019. FINDINGS: Surgical clips are again identified overlying the left breast/left lateral chest. The cardiac silhouette is at the upper limits of normal in size, though stable. No significant pulmonary vascular congestion. Calcified granuloma within the left midlung are again identified. The lungs otherwise appear clear. No pleural effusion. No pneumothorax. No acute osseous abnormality. IMPRESSION: Similar-appearing examination without acute cardiopulmonary abnormality. Dictated by: Dictated on workstation # [id number]
[2019-12-30 12:24] LABS: FREE T4 (FREE THYROXINE) 0.84 NG/DL (0.70-1.48)
[2019-12-30] MEDS ORDERED: LIDOCAINE 2% VISCOUS 15 ML UDC PO ONE (12:30)
[2019-12-30] MEDS ORDERED: ANTACID SUSP 30 ML UDC (MYLANTA) PO ONE (12:30)
[2019-12-30] MEDS ORDERED: NS IV 1000 ML 1,000 ML IV SCH (12:30)
--- NOTE | 2019-12-30 13:16 | Consultation-Cardiology ---
HPI-Cardiology Cardiology Consultation: Date of Consultation 12/30/19 Time Seen by a Provider: 13:00 Date of Admission Attending Physician Admitting Physician Daryl Macdonald MD Consulting Physician RICA MOTA MD, MA, FACP, FACC, FSCAI, CCDS HPI: Chief Complaint: CC: Chest discomfort HPI: 64 yo woman with several weeks of chest discomfort: midsternal, pressure-like, mild to mod, sometimes radiating to shoulder, unrelated to exertion, lasting up to 3 hours, occurring a few times a week, not associated with other symptoms, w/o aggravating or relieving factors. Presents with a similar episode today that awoke her from her sleep at 3 am and lasted several hours No exertional shortness of breath Chronic palp: occasional flip-flop. This has not changed in the recent past No swelling Review of Systems-Cardiology Review of Systems Constitutional: No malaise, No tiredness, No weight loss, No weight gain Eyes: No vision change Ears/Nose/Throat: No ear discharge, No nasal drainage, No recent hearing loss Respiratory: As described under HPI Cardiovascular: As described under HPI Gastrointestinal: No constipation, No diarrhea, No nausea, No vomiting Genitourinary: No dysuria, No hematuria, No urine frequency changes Musculoskeletal: No back pain, No joint pain Skin: No rash, No ulcerations Psychiatric/Neurological: No seizure, No focal weakness Hematologic: No bleeding abnormalities TQK-Ljbmnl-Aweoxe Hx Patient Social History 2nd Hand Smoke Exposure: No Recent Foreign Travel: No Recent Infectious Disease Expo: No Hospitalization with Isolation: Denies Immunizations Up To Date Date of Influenza Vaccine: Jun 25, 2017 Past Medical History PMH As described under Assessment. Family Medical History Family Medical History: Denies fam h/o early CAD or SCD Allergies and Home Medications Allergies Coded Allergies: No Known Drug Allergies (Unverified , 12/24/17) Home Medications Simvastatin 20 Mg Tablet, 20 MG PO HS, (Reported) Tamoxifen Citrate 20 Mg Tablet, 20 MG PO DAILY, (Reported) Patient Home Medication List Home Medication List Reviewed: Yes Physical Exam-Cardiology Physical Exam Vital Signs/I&O 12/30/19 11:17 Temp 37.3 Pulse 75 Resp 17 B/P (MAP) 149/83 (105) Pulse Ox 97 O2 Delivery Room Air Capillary Refill : Less Than 3 Seconds Constitutional: AAO x 3, well-developed, well-nourished HEENT: EOMI, hearing is well preserved; No xanthelasmas are seen Neck: carotid pulses are 2 + bilaterally, with good upstrokes Respiratory: No accessory muscle use; other (good air entry, bilateral) Cardiovascular: regular rate-rhythm, S1 and S2, systolic murmur (faint MURTAZA at card base) Gastrointestinal: No tender; soft; No guarding, No rebound; audible bowel sounds Extremities: No clubbing, No cyanosis Neurologic/Psychiatric: oriented x 3, other (moves all limbs equaly) Skin: No rash on exposed areas, No ulcerations on exposed areas Data Review Labs Laboratory Tests 12/30/19 00:00: 12/30/19 11:30: White Blood Count 8.4, Red Blood Count 4.65, Hemoglobin 13.7, Hematocrit 42, Mean Corpuscular Volume 91, Mean Corpuscular Hemoglobin 30, Mean Corpuscular Hemoglobin Concent 33, Red Cell Distribution Width 13.6, Platelet Count 210, Mean Platelet Volume 11.5H, Neutrophils (%) (Auto) 69, Lymphocytes (%) (Auto) 23, Monocytes (%) (Auto) 7, Eosinophils (%) (Auto) 1, Basophils (%) (Auto) 1, Neutrophils # (Auto) 5.8, Lymphocytes # (Auto) 1.9, Monocytes # (Auto) 0.6, Eosinophils # (Auto) 0.0, Basophils # (Auto) 0.0, Prothrombin Time 13.3, INR Comment 1.0, Activated Partial Thromboplast Time 28, D-Dimer 0.35, Sodium Level 142, Potassium Level 4.2, Chloride Level 108H, Carbon Dioxide Level 23, Anion Gap 11, Blood Urea Nitrogen 18, Creatinine 0.81, Estimat Glomerular Filtration Rate > 60, BUN/Creatinine Ratio 22, Glucose Level 121H, Calcium Level 10.5H, Corrected Calcium 10.3H, Magnesium Level 2.3, Total Bilirubin 0.4, Aspartate Amino Transf (AST/SGOT) 20, Alanine Aminotransferase (ALT/SGPT) 16, Alkaline Phosphatase 41, Myoglobin 26.7, Troponin I < 0.028, Total Protein 7.3, Albumin 4.3, Lipase 33, Thyroid Stimulating Hormone (TSH) 1.47, Free Thyroxine 0.84 Laboratory Tests 12/30/19 11:30 A/P-Cardiology Assessment/Admission Diagnosis Chest discomfort of undetermined etiology Hyperlipidemia MPI of December 2017 showed no evidence of significant myocardial ischemia or infarction. LVEF 71% Echocardiogram of December 2017 showed LVEF 60-65%. Mod MR. Mild to mod TR. PASP approx 35 mmHg H/o palp. 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 Otherwise, consider noninvasive risk strat * Meanwhile, treat with ASA and bb * Echo to eval LVEF and wall motion Clinical Quality Measures AMI/AHF: ASA po Prior to arrival: RICA Sanabria MD FACP FAC CCDS Dec 30, 2019 13:16
[2019-12-30 14:00] VITALS: BP 134/65
[2019-12-30] MEDS ORDERED: CATHETER FLUSH 10 ML SYR IV PRN (15:00)
[2019-12-30] MEDS: LACTATED RINGERS 1,000 ML IV SCH (15:41)
[2019-12-30] MEDS: PANTOPRAZOLE 40 MG (PROTONIX) VIAL IV SCH (15:41)
[2019-12-30 16:00] VITALS: BP 108/60
[2019-12-30] MEDS ORDERED: CALCIUM CARBONATE 500 MG (TUMS) TAB.CHEW PO PRN (16:00)
--- NOTE | 2019-12-30 16:00 | History & Physical-Hospitalist ---
History of Present Illness HPI/Chief Complaint Pt is a 64yo CF with a PMH of HLD who presented to the ER due to chest heaviness. She states that this has been going on for the past 2-3 weeks and occurs at random. It woke her from her sleep last night. She also developed some left hand tingling over the past two days and all of this prompted her to seek evaluation in the ER. She has no history of CAD nor family history. 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 Source: patient Date Seen 12/30/19 Time Seen by a Provider: 15:51 Attending Physician Abel Rowe MD PCP Daryl Macdonald MD Referring Physician Date of Admission Dec 30, 2019 at 12:23 Home Medications & Allergies Home Medications Reviewed patient Home Medication Reconciliation performed by pharmacy medication reconciliations geoscience technician and/or nursing. Patients Allergies have been reviewed. Allergies Allergies Coded Allergies No Known Drug Allergies (Unverified12/24/17) Past Crdchxt-Jvwiln-Xrxhfo Hx Past Med/Social Hx: Reviewed Nursing Past Med/Soc Hx Patient Social History Marrital Status: Employed/Student: employed Alcohol Use: Denies Use Recreational Drug Use: No Smoking Status: Never a Smoker 2nd Hand Smoke Exposure: No Recent Foreign Travel: No Contact w/other who traveled: No Recent Hopitalizations: No Recent Infectious Disease Expo: No Immunizations Up To Date Date of Influenza Vaccine: Jun 25, 2017 Seasonal Allergies Seasonal Allergies: No Past Medical History Surgeries: Breast, Section Cardiac: High Cholesterol Reproductive: No Cancer: Breast Did You Recieve Any Treatments: Yes What Type of Treatment Did You: Surgical Intervention History of Blood Disorders: No Family History Reviewed Nursing Family Hx No Pertinent Family Hx Review of Systems Constitutional: No chills, No fever EENTM: no symptoms reported Respiratory: No cough, No phlegm, No short of breath Cardiovascular: see HPI; No edema, No Hx of Intervention Gastrointestinal: no symptoms reported Genitourinary: no symptoms reported Musculoskeletal: see HPI Skin: no symptoms reported Psychiatric/Neurological: Tingling Physical Exam Physical Exam Vital Signs Vital Signs - First Documented 12/30/19 11:17 Temp 37.3 Pulse 75 Resp 17 B/P (MAP) 149/83 (105) Pulse Ox 97 O2 Delivery Room Air Capillary Refill : Less Than 3 Seconds Height, Weight, BMI Height: 5'7.00" Weight: 140lbs. 0.0oz. 63.196658oc; 22.57 BMI Method:Stated General Appearance: No Apparent Distress, WD/WN HEENT: PERRL/EOMI, Moist Mucous Membranes; No Scleral Icterus (L), No Scleral Icterus (R) Neck: Normal Inspection, Supple Respiratory: Lungs Clear, No Accessory Muscle Use, No Respiratory Distress Cardiovascular: Regular Rate, Rhythm, No JVD, No Murmur Gastrointestinal: Normal Bowel Sounds, Non Tender, Soft Extremity: Normal Capillary Refill, No Calf Tenderness, No Pedal Edema Neurologic/Psychiatric: Alert, Oriented x3, Normal Mood/Affect Skin: Normal Color, Warm/Dry Results Results/Procedures Labs Laboratory Tests 12/30/19 11:30 Patient resulted labs reviewed. Assessment/Plan Admission Diagnosis Chest Pain Admission Status: Observation Assessment and Plan Chest pain HLD Monitor on telemetry Troponin and initial EKG negative Seems atypical in nature Will trend troponin Continue home statin Cardiology consulted, appreciate recs Echo Diagnosis/Problems Diagnosis/Problems (1) Chest pain Qualifiers: Chest pain type: other chest pain Qualified Codes: R07.89 - Other chest pain Clinical Quality Measures AMI/AHF: ASA po Prior to arrival: No DVT/VTE Risk/Contraindication: Risk Factor Score Per Nursin RFS Level Per Nursing on Admit: 2=Moderate ABEL ROWE MD Dec 30, 2019 16:00
[2019-12-30] MEDS ORDERED: ALEN70TA5 PO (16:12)
[2019-12-30] MEDS ORDERED: ATOR20TA66 PO (16:12)
[2019-12-30] MEDS ORDERED: C250T PO (16:14)
[2019-12-30] MEDS ORDERED: CHOL500050 PO (16:14)
[2019-12-30] MEDS ORDERED: MELATONIN 3 MG TABLET PO PRN (16:15)
[2019-12-30] MEDS ORDERED: PATIENT MAY USE OWN MEDS, ALL MC SCH (16:15)
[2019-12-30] MEDS ORDERED: MILK OF MAGNESIA 400 MG/5 ML 30 ML UDC PO PRN (16:15)
[2019-12-30] MEDS ORDERED: ANTACID SUSP 30 ML UDC (MYLANTA) PO PRN (16:15)
[2019-12-30] MEDS ORDERED: BENZONATATE 100 MG (TESSALON) CAPSULE PO PRN (16:15)
[2019-12-30] MEDS ORDERED: ACETAMINOPHEN 325 MG TABLET PO PRN (16:15)
[2019-12-30] MEDS ORDERED: ONDANSETRON 4 MG/2 ML (SDV) Z0FRAN IV PRN (16:15)
--- NOTE | 2019-12-30 16:21 | NUR ---
SPOKE WITH THE PT AND WENT THRU THE EXT MED HISTORY TO COMPLETE THE MED REC ALL MEDS ACCOUNTED FOR ON THE EXT MED HISTORY OTC MEDS: VIT D VIT C
[2019-12-30 20:35] VITALS: BP 132/68
[2019-12-31 00:27] VITALS: BP 130/74
[2019-12-31 04:20] VITALS: BP 117/69
[2019-12-31] MEDS: LACTATED RINGERS 1,000 ML IV SCH (05:01)
[2019-12-31 05:56] LABS: BASOPHILS % (AUTO) 0 % (0-10); EOSINOPHILS # (AUTO) 0.1 10^3/uL (0.0-0.3); EOSINOPHILS % (AUTO) 2 % (0-10); HEMATOCRIT 36 % (35-52); HEMOGLOBIN 11.7 G/DL (11.5-16.0); LYMPHOCYTES # (AUTO) 2.5 X 10^3 (1.0-4.0); LYMPHOCYTES % (AUTO) 33 % (12-44); MEAN CORPUSCULAR HEMOGLOBIN 30 PG (25-34); MEAN CORPUSCULAR HGB CONC 32 G/DL (32-36); MEAN CORPUSCULAR VOLUME 91 FL (80-99); MEAN PLATELET VOLUME 11.9 FL (7.4-10.4); MONOCYTES # (AUTO) 0.6 X 10^3 (0.0-1.0); MONOCYTES % (AUTO) 7 % (0-12); NEUTROPHILS # (AUTO) 4.3 X 10^3 (1.8-7.8); NEUTROPHILS % (AUTO) 57 % (42-75); PLATELET COUNT 186 10^3/uL (130-400); RED CELL DISTRIBUTION WIDTH 13.6 % (10.0-14.5); WHITE BLOOD COUNT 7.4 10^3/uL (4.3-11.0)
[2019-12-31 06:24] LABS: ALBUMIN 3.6 GM/DL (3.2-4.5); CHLORIDE 112 MMOL/L (98-107); SODIUM 143 MMOL/L (135-145)
[2019-12-31 06:25] LABS: CALCIUM 9.1 MG/DL (8.5-10.1)
[2019-12-31 06:26] LABS: TRIGLYCERIDES 119 MG/DL (<150); VLDL CHOLESTEROL 24 MG/DL (5-40)
[2019-12-31 06:27] LABS: GLUCOSE 76 MG/DL (70-105); TOTAL PROTEIN 5.7 GM/DL (6.4-8.2)
[2019-12-31 06:28] LABS: BILIRUBIN,TOTAL 0.4 MG/DL (0.1-1.0); CARBON DIOXIDE 22 MMOL/L (21-32)
[2019-12-31 06:30] LABS: ALKALINE PHOSPHATASE 31 U/L (40-136); GFR ESTIMATED > 60
[2019-12-31 06:31] LABS: CHOLESTEROL 159 MG/DL (< 200)
[2019-12-31 06:32] LABS: BUN/CREATININE RATIO 21; HDL CHOLESTEROL 55 MG/DL (40-60)
[2019-12-31 06:33] LABS: ALANINE AMINOTRANSFERASE 12 U/L (0-55); MAGNESIUM 2.1 MG/DL (1.6-2.4)
[2019-12-31 08:00] VITALS: BP 128/74
[2019-12-31] MEDS: PANTOPRAZOLE 40 MG (PROTONIX) VIAL IV SCH (08:38)
[2019-12-31] MEDS ORDERED: TAMOXIFEN 10 MG (NOLVADEX) TAB PO SCH (09:00)
[2019-12-31] MEDS ORDERED: ASPIRIN 81 MG CHEW (CHILDREN'S ASA) PO SCH (09:00)
--- NOTE | 2019-12-31 09:39 | NUR ---
Pt is Quaker and optimistic about discharge today. Guide Alpine offered blessing.
--- NOTE | 2019-12-31 10:59 | Progress Note - Cardiology ---
Cardiology SOAP Progress Note Subjective: No recurrence of cp No palp or syncope or shortness of breath Feels well and wishes to go home No n/v/d No weakness or focal weakness Objective: I&O/Vital Signs 12/31/19 12/31/19 12/31/19 12/31/19 00:27 01:00 04:20 07:00 Temp 36.4 37.0 Pulse 72 62 64 75 Resp 18 18 B/P (MAP) 130/74 (92) 117/69 (85) Pulse Ox 97 96 O2 Delivery Room Air Room Air 12/31/19 08:00 Temp 36.2 Pulse 71 Resp 18 B/P (MAP) 128/74 (92) Pulse Ox 97 O2 Delivery Room Air 12/31/19 00:00 Intake Total 1850 ml Balance 1850 ml Weight (Pounds): 140 Weight (Ounces): 0.0 Weight (Calculated Kilograms): [id number] Constitutional: AAO x 3, well-developed, well-nourished Respiratory: No accessory muscle use; other (good air entry, bilateral) Cardiovascular: regular rate-rhythm, S1 and S2, systolic murmur (faint MURTAZA at card base) Gastrointestional: No tender; soft; No guarding, No rebound; audible bowel sounds Extremities: No clubbing, No cyanosis Neurologic/Psychiatric: oriented x 3, other (moves all limbs equaly) Skin: No rash on exposed areas, No ulcerations on exposed areas Results/Procedures: Labs Laboratory Tests 12/30/19 11:30: White Blood Count 8.4, Red Blood Count 4.65, Hemoglobin 13.7, Hematocrit 42, Mean Corpuscular Volume 91, Mean Corpuscular Hemoglobin 30, Mean Corpuscular Hemoglobin Concent 33, Red Cell Distribution Width 13.6, Platelet Count 210, Mean Platelet Volume 11.5H, Neutrophils (%) (Auto) 69, Lymphocytes (%) (Auto) 23, Monocytes (%) (Auto) 7, Eosinophils (%) (Auto) 1, Basophils (%) (Auto) 1, Neutrophils # (Auto) 5.8, Lymphocytes # (Auto) 1.9, Monocytes # (Auto) 0.6, Eosinophils # (Auto) 0.0, Basophils # (Auto) 0.0, Prothrombin Time 13.3, INR Comment 1.0, Activated Partial Thromboplast Time 28, D-Dimer 0.35, Sodium Level 142, Potassium Level 4.2, Chloride Level 108H, Carbon Dioxide Level 23, Anion Gap 11, Blood Urea Nitrogen 18, Creatinine 0.81, Estimat Glomerular Filtration Rate > 60, BUN/Creatinine Ratio 22, Glucose Level 121H, Calcium Level 10.5H, Corrected Calcium 10.3H, Magnesium Level 2.3, Total Bilirubin 0.4, Aspartate Amino Transf (AST/SGOT) 20, Alanine Aminotransferase (ALT/SGPT) 16, Alkaline Phosphatase 41, Myoglobin 26.7, Troponin I < 0.028, Total Protein 7.3, Albumin 4.3, Lipase 33, Thyroid Stimulating Hormone (TSH) 1.47, Free Thyroxine 0.84 12/30/19 18:00: Troponin I < 0.028 12/31/19 00:39: Troponin I < 0.028 12/31/19 05:20: White Blood Count 7.4, Red Blood Count 3.95L, Hemoglobin 11.7, Hematocrit 36, Mean Corpuscular Volume 91, Mean Corpuscular Hemoglobin 30, Mean Corpuscular Hemoglobin Concent 32, Red Cell Distribution Width 13.6, Platelet Count 186, Mean Platelet Volume 11.9H, Neutrophils (%) (Auto) 57, Lymphocytes (%) (Auto) 33, Monocytes (%) (Auto) 7, Eosinophils (%) (Auto) 2, Basophils (%) (Auto) 0, Neutrophils # (Auto) 4.3, Lymphocytes # (Auto) 2.5, Monocytes # (Auto) 0.6, Eosinophils # (Auto) 0.1, Basophils # (Auto) 0.0, Sodium Level 143, Potassium Level 4.0, Chloride Level 112H, Carbon Dioxide Level 22, Anion Gap 9, Blood Urea Nitrogen 15, Creatinine 0.70, Estimat Glomerular Filtration Rate > 60, BUN/Creatinine Ratio 21, Glucose Level 76, Calcium Level 9.1, Corrected Calcium 9.4, Magnesium Level 2.1, Total Bilirubin 0.4, Aspartate Amino Transf (AST/SGOT) 15, Alanine Aminotransferase (ALT/SGPT) 12, Alkaline Phosphatase 31L, Total Protein 5.7L, Albumin 3.6, Thyroid Stimulating Hormone (TSH) 1.70, Triglycerides Level 119, Cholesterol Level 159, LDL Cholesterol Direct 91, VLDL Cholesterol 24, HDL Cholesterol 55 A/P: Assessment: Chest discomfort of undetermined etiology. No evidence of ACS Hyperlipidemia MPI of December 2017 showed no evidence of significant myocardial ischemia or infarction. LVEF 71% Echocardiogram of December 31, 2019 showed LVEF 60-65% mild MR, RVSP approx 30 mmHg H/o palp. 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
--- NOTE | 2019-12-31 11:06 | Discharge Summary ---
Diagnosis/Chief Complaint Date of Admission Dec 30, 2019 at 12:23 Date of Discharge Admission Diagnosis Chest Pain Primary Care Jd Chau MD Discharge Diagnosis (1) Chest pain Discharge Summary Discharge Physical Exam Allergies: Coded Allergies: No Known Drug Allergies (Unverified , 12/24/17) Vitals & I&Os Vital Signs Date Time Temp Pulse Resp B/P (MAP) Pulse Ox O2 Delivery O2 Flow Rate FiO2 12/31/19 12:11 36.2 61 18 128/74 97 Room Air General Appearance: No Apparent Distress, WD/WN Respiratory: Lungs Clear, No Respiratory Distress Cardiovascular: Regular Rate, Rhythm, No Murmur Neurologic/Psychiatric: Alert, Oriented x3 Hospital Course Pt is a 64yoCF with a PMH of HLD who presented to the ER due to chest heaviness. She was admitted as a chest pain rule out and serial troponins were done and were negative. Her symptoms resolved. We discussed continued treatment with PPI or tums as she felt tums was helpful. She was discharged home in stable condition to follow up with her PCP. Labs (last 24 hrs) Laboratory Tests 12/30/19 18:00: Troponin I < 0.028 12/31/19 00:39: Troponin I < 0.028 12/31/19 05:20: White Blood Count 7.4, Red Blood Count 3.95L, Hemoglobin 11.7, Hematocrit 36, Mean Corpuscular Volume 91, Mean Corpuscular Hemoglobin 30, Mean Corpuscular Hemoglobin Concent 32, Red Cell Distribution Width 13.6, Platelet Count 186, Mean Platelet Volume 11.9H, Neutrophils (%) (Auto) 57, Lymphocytes (%) (Auto) 33, Monocytes (%) (Auto) 7, Eosinophils (%) (Auto) 2, Basophils (%) (Auto) 0, Neutrophils # (Auto) 4.3, Lymphocytes # (Auto) 2.5, Monocytes # (Auto) 0.6, Eosinophils # (Auto) 0.1, Basophils # (Auto) 0.0, Sodium Level 143, Potassium Level 4.0, Chloride Level 112H, Carbon Dioxide Level 22, Anion Gap 9, Blood Urea Nitrogen 15, Creatinine 0.70, Estimat Glomerular Filtration Rate > 60, BUN/Creatinine Ratio 21, Glucose Level 76, Calcium Level 9.1, Corrected Calcium 9.4, Magnesium Level 2.1, Total Bilirubin 0.4, Aspartate Amino Transf (AST/SGOT) 15, Alanine Aminotransferase (ALT/SGPT) 12, Alkaline Phosphatase 31L, Total Protein 5.7L, Albumin 3.6, Triglycerides Level 119, Cholesterol Level 159, LDL Cholesterol Direct 91, VLDL Cholesterol 24, HDL Cholesterol 55, Thyroid Stimulating Hormone (TSH) 1.70 Patient resulted labs reviewed. Pending Labs Discussion & Recommendations Discharge Planning: <30 minutes discharge planning Discharge Home Medications: Active Scripts Active Aspirin 81 Mg Tab.chew 81 Mg PO DAILY Reported Vitamin C (Ascorbic Acid) 250 Mg Tab 250 Mg PO DAILY Vitamin D3 (Cholecalciferol (Vitamin D3)) 125 Mcg Capsule 125 Mcg PO DAILY Atorvastatin Calcium 20 Mg Tablet 20 Mg PO HS Alendronate Sodium 70 Mg Tablet 70 Mg PO FRIDAY Tamoxifen Citrate 20 Mg Tablet 20 Mg PO DAILY Instructions to patient/family Please see electronic discharge instructions given to patient. Clinical Quality Measures AMI/AHF: ASA po Prior to arrival: No DVT/VTE Risk/Contraindication: Risk Factor Score Per Nursin RFS Level Per Nursing on Admit: 2=Moderate Copy Copies To 1: JD CHAU MD Problem Qualifiers (1) Chest pain: Chest pain type: other chest pain Qualified Codes: R07.89 - Other chest pain ABEL STEWART MD Dec 31, 2019 11:06
[2019-12-31] MEDS ORDERED: ASPI-999 PO (11:14)
--- NOTE | 2019-12-31 11:16 | Discharge Inst-Simple/Standard ---
Discharge Inst-Standard Patient Instructions/Follow Up Plan of Care/Instructions/FU: Please continue to take your medications as written. Please follow up with your PCP to follow up this hospital stay. Activity as Tolerated: Yes Discharge Diet: Cardiac Diet Return to The Hospital For: Chest pain, shortness of breath, fever, chills, if you feel you are getting worse. ABEL STEWART MD Dec 31, 2019 11:16
[2019-12-31 12:11] VITALS: BP 128/74
--- NOTE | 2019-12-31 12:16 | NUR ---
ANITHA HDEZ demonstrates understanding of discharge instructions and accurately returns instructions upon questioning. Copy of Post-Discharge Instructions and Medication Discharge Instructions given to PT . ANITHA HDEZ is able to manage continuing needs after discharge. Patients belongings returned to PT. Skin dry and intact; no breakdown noted. Patient discharged from [facility]- on 12/31/19 at 1211. ANITHA HDEZ left floor AMBULATING, accompanied by STAFF.
== END 2019-12-31 12:11 | disposition home or self-care (01) ==
LOC: EDUNIT# 11:17 → ER 11:19 → 4TH 12:23
PROVIDERS: ADMIT Family Medicine; ATTEND Family Medicine
DX: R07.9 Chest pain, unspecified (principal); I34.0 Nonrheumatic mitral (valve) insufficiency; E78.5 Hyperlipidemia, unspecified; E78.00 Pure hypercholesterolemia, unspecified; Z86.000 Personal history of in-situ neoplasm of breast; Z92.3 Personal history of irradiation; Z79.899 Other long term (current) drug therapy
CPT/HCPCS: 36415; 71045; 80053; 80061; 83690; 83735; 83874; 84439; 84443; 84484; 85025; 85379; 85610; 85730; 93005; 93041; 93306; 96360; G0378

== ENCOUNTER → 2020-01-20 | Outpatient (CLI) | payer BC ==
[~2020-01-20] MED LIST changes: +ALEN70TA5 PO; +ASPI-999 PO; -ASPIRIN 81 MG CHEW (CHILDREN'S ASA) ONE; +ATOR20TA66 PO; +C250T PO; +CHOL500050 PO
--- NOTE | 2020-01-20 08:30 | Diagnostic Imaging Report ---
PROCEDURE: CT head without contrast. TECHNIQUE: Multiple contiguous axial images were obtained through the brain without the use of intravenous contrast. Auto Exposure Controls were utilized during the CT exam to meet ALARA standards for radiation dose reduction. INDICATION: Bilateral arm tingling and numbness. COMPARISON: None. FINDINGS: Advanced generalized cerebral and cerebellar parenchymal volume loss. Mild leukoaraiosis. No intracranial hemorrhage, mass effect, hydrocephalus or extra-axial fluid collections. No CT evidence of a territorial infarction. Osseous structures are intact. The visualized paranasal sinuses and mastoids are clear. IMPRESSION: No acute intracranial CT findings. Dictated by: Dictated on workstation # [id number]
== END ==
LOC: RAD 07:55
PROVIDERS: ATTEND Internal Medicine
DX: R20.0 Anesthesia of skin (principal)
CPT/HCPCS: 70450

== ENCOUNTER → 2020-01-25 | Outpatient (CLI) | payer BC ==
[~2020-01-25] VITALS: Ht 170 cm; Wt 64.0 kg
[~2020-01-25] MED LIST changes: +REGADENOSON 0.4 MG/5 ML SYR (LEXISCAN) IV ONE
[2020-01-25] MEDS: CATHETER FLUSH 10 ML SYR IV PRN ×2 (08:05→09:28)
[2020-01-25 09:26] VITALS: BP 150/94
--- NOTE | 2020-01-25 14:58 | STRESS TEST ---
DATE OF SERVICE: 01/25/2020 RESTING AND POST REGADENOSON TECHNETIUM-99M TETROFOSMIN SPECT CT IMAGING ORDERING PHYSICIAN: Mayra Dixon APRN. PRIMARY PHYSICIAN: Dr. Macdonald. OTHER PHYSICIAN: Dr. Mota. CLINICAL DIAGNOSIS: Chest discomfort. Baseline images were carried out after injection of 10.93 mCi of technetium-99m Tetrofosmin. This was followed by 0.4 mg of Regadenoson and 30 mCi of technetium-99m Tetrofosmin for stress imaging. The electrocardiogram showed sinus rhythm at the baseline. It did not change significantly with the Regadenoson infusion. Review of images at rest and following stress does not indicate any significant perfusion defect consistent with myocardial ischemia or infarction. Gated images show normal global left ventricular systolic function with normal regional wall motion. Left ventricular ejection fraction is calculated to be 66%. CONCLUSIONS: 1. No evidence of any significant myocardial ischemia or infarction is seen. 2. Normal regional wall motion. 3. Normal global left ventricular systolic function with a calculated ejection fraction of 66%. Job ID: [id number] DocumentID: [id number] Dictated Date: 01/25/2020 14:30:38 Block Sawyer Date: 01/25/2020 14:57:53 Dictated By: RICA MOTA MD, MA, FACP, FACC,
== END ==
LOC: CARD 07:56
PROVIDERS: ATTEND Nurse Practitioner Family
DX: I34.0 Nonrheumatic mitral (valve) insufficiency (principal); E78.5 Hyperlipidemia, unspecified; R53.83 Other fatigue
CPT/HCPCS: 78452; 93017

== ENCOUNTER → 2020-02-22 | Outpatient (CLI) | payer BC ==
[~2020-02-22] MED LIST changes: -REGADENOSON 0.4 MG/5 ML SYR (LEXISCAN) IV ONE
--- NOTE | 2020-02-22 09:26 | Diagnostic Imaging Report ---
Sacrum and coccyx at 9:01. Indication: Tailbone pain AP and lateral views were obtained. There are no prior studies available for comparison. There is no fracture, dislocation or acute bony abnormality evident. There is mild symmetrical sclerosis of the sacroiliac joints. The soft tissues are unremarkable. Incidental note is made of degenerative facet disease on the right at L4-L5. The lateral view shows the intervertebral spaces of the visualized lower lumbar spine to be fairly well maintained. Impression: There is no evidence for an acute bony abnormality. Dictated by: Dictated on workstation # [id number]
== END ==
LOC: RAD 08:40
PROVIDERS: ATTEND Internal Medicine
DX: M53.3 Sacrococcygeal disorders, not elsewhere classified (principal)
CPT/HCPCS: 72220

== ENCOUNTER → 2020-03-06 | Outpatient (CLI) | payer BC ==
[2020-03-06 11:19] LABS: BASOPHILS % (AUTO) 0 % (0-10); EOSINOPHILS # (AUTO) 0.1 10^3/uL (0.0-0.3); EOSINOPHILS % (AUTO) 2 % (0-10); HEMATOCRIT 40 % (35-52); HEMOGLOBIN 13.2 G/DL (11.5-16.0); LYMPHOCYTES # (AUTO) 2.1 X 10^3 (1.0-4.0); LYMPHOCYTES % (AUTO) 28 % (12-44); MEAN CORPUSCULAR HEMOGLOBIN 30 PG (25-34); MEAN CORPUSCULAR HGB CONC 33 G/DL (32-36); MEAN CORPUSCULAR VOLUME 92 FL (80-99); MEAN PLATELET VOLUME 11.3 FL (7.4-10.4); MONOCYTES # (AUTO) 0.5 X 10^3 (0.0-1.0); MONOCYTES % (AUTO) 7 % (0-12); NEUTROPHILS # (AUTO) 4.9 X 10^3 (1.8-7.8); NEUTROPHILS % (AUTO) 64 % (42-75); PLATELET COUNT 202 10^3/uL (130-400); RED CELL DISTRIBUTION WIDTH 13.8 % (10.0-14.5); WHITE BLOOD COUNT 7.7 10^3/uL (4.3-11.0)
[2020-03-06 11:37] LABS: ALANINE AMINOTRANSFERASE 17 U/L (0-55); ALBUMIN 4.2 GM/DL (3.2-4.5); ALKALINE PHOSPHATASE 41 U/L (40-136); BILIRUBIN,TOTAL 0.5 MG/DL (0.1-1.0); BUN/CREATININE RATIO 23; CALCIUM 10.3 MG/DL (8.5-10.1); CARBON DIOXIDE 23 MMOL/L (21-32); CHLORIDE 109 MMOL/L (98-107); CREATININE SERUM 0.75 MG/DL (0.60-1.30); GFR ESTIMATED > 60; GLUCOSE 104 MG/DL (70-105); POTASSIUM 3.9 MMOL/L (3.6-5.0); SODIUM 142 MMOL/L (135-145); TOTAL PROTEIN 6.9 GM/DL (6.4-8.2)
== END ==
LOC: ONC 11:07
PROVIDERS: ATTEND Internal Medicine Hematology & Oncology
DX: D05.12 Intraductal carcinoma in situ of left breast (principal); M81.0 Age-related osteoporosis without current pathological fracture
CPT/HCPCS: 80053; 85025; G0463; 99213

== ENCOUNTER → 2020-03-10 | Outpatient (CLI) | payer BC | LOC: RAD 09:52 | PROVIDERS: ATTEND Internal Medicine Hematology & Oncology | DX: Z12.31 Encounter for screening mammogram for malignant neoplasm of breast (principal); D05.12 Intraductal carcinoma in situ of left breast | CPT/HCPCS: 77063; 77067 ==

== ENCOUNTER → 2020-08-28 | Outpatient (CLI) | payer BC ==
[~2020-08-28] MED LIST changes: -ALEN70TA5 PO; +ALEN70TA69 PO; +ASCO250T16 PO; -C250T PO
[2020-08-28 14:42] LABS: HEMOGLOBIN 12.2 g/dL (11.5-16.0); WHITE BLOOD COUNT 6.6 10^3/uL (4.3-11.0)
[2020-08-28 15:08] LABS: ALANINE AMINOTRANSFERASE 20 U/L (0-55); ALKALINE PHOSPHATASE 35 U/L (40-136); BILIRUBIN,TOTAL 0.4 MG/DL (0.1-1.0); BUN/CREATININE RATIO 16; CALCIUM 9.8 MG/DL (8.5-10.1); CARBON DIOXIDE 27 MMOL/L (21-32); CHLORIDE 107 MMOL/L (98-107); CREATININE SERUM 0.81 MG/DL (0.60-1.30); GFR ESTIMATED > 60; GLUCOSE 101 MG/DL (70-105); SODIUM 141 MMOL/L (135-145); TOTAL PROTEIN 6.2 GM/DL (6.4-8.2)
--- NOTE | 2020-08-28 17:11 | Diagnostic Imaging Report ---
INDICATION: Chest pain, pressure with heaviness since COVID infection 3 weeks ago. TECHNIQUE: Two view chest 2:45 PM CORRELATION STUDY: 12/30/2019 FINDINGS: The heart size, mediastinal configuration and pulmonary vasculature are within normal limits. Lung booth are slightly hyperinflated. No infiltrate. Calcified granuloma lateral left lung Somewhat accentuated thoracic kyphosis is present. Surgical clips over the left breast and chest. IMPRESSION: 1. Stable appearance about the chest. No acute abnormality. Dictated by: Dictated on workstation # [id number]
== END ==
LOC: RAD 14:17
PROVIDERS: ATTEND Physician Assistant
DX: R07.9 Chest pain, unspecified (principal)
CPT/HCPCS: 36415; 71046; 80053; 84443; 84484; 85027; 93005

== ENCOUNTER → 2020-09-06 | Outpatient (CLI) | payer BC ==
[2020-09-06 10:59] LABS: BASOPHILS # (AUTO) 0.1 10^3/uL (0.0-0.1); BASOPHILS % (AUTO) 1 % (0-10); EOSINOPHILS # (AUTO) 0.1 10^3/uL (0.0-0.3); EOSINOPHILS % (AUTO) 1 % (0-10); HEMATOCRIT 42 % (35-52); HEMOGLOBIN 13.3 g/dL (11.5-16.0); LYMPHOCYTES # (AUTO) 3.1 10^3/uL (1.0-4.0); LYMPHOCYTES % (AUTO) 30 % (12-44); MEAN CORPUSCULAR HEMOGLOBIN 30 pg (25-34); MEAN CORPUSCULAR HGB CONC 32 g/dL (32-36); MEAN CORPUSCULAR VOLUME 94 fL (80-99); MONOCYTES # (AUTO) 0.9 10^3/uL (0.0-1.0); MONOCYTES % (AUTO) 9 % (0-12); NEUTROPHILS # (AUTO) 6.3 10^3/uL (1.8-7.8); NEUTROPHILS % (AUTO) 60 % (42-75); PLATELET COUNT 219 10^3/uL (130-400); WHITE BLOOD COUNT 10.5 10^3/uL (4.3-11.0)
[2020-09-06 11:20] LABS: ALANINE AMINOTRANSFERASE 20 U/L (0-55); ALBUMIN 4.1 GM/DL (3.2-4.5); ALKALINE PHOSPHATASE 34 U/L (40-136); BILIRUBIN,TOTAL 0.5 MG/DL (0.1-1.0); BUN/CREATININE RATIO 24; CALCIUM 10.5 MG/DL (8.5-10.1); CARBON DIOXIDE 31 MMOL/L (21-32); CHLORIDE 103 MMOL/L (98-107); CREATININE SERUM 0.79 MG/DL (0.60-1.30); GFR ESTIMATED > 60; GLUCOSE 86 MG/DL (70-105); POTASSIUM 3.4 MMOL/L (3.6-5.0); SODIUM 141 MMOL/L (135-145); TOTAL PROTEIN 6.8 GM/DL (6.4-8.2)
== END | disposition still patient (30) ==
LOC: ONC 10:59
PROVIDERS: ATTEND Internal Medicine Hematology & Oncology
DX: D05.12 Intraductal carcinoma in situ of left breast (principal); M81.0 Age-related osteoporosis without current pathological fracture; M16.0 Bilateral primary osteoarthritis of hip; Z92.3 Personal history of irradiation
CPT/HCPCS: 80053; 82306; 85025; G0463; 99213

== ENCOUNTER → 2021-02-22 | Outpatient (CLI) | payer BC ==
[~2021-02-22] MED LIST changes: -ALEN70TA69 PO; +ALEN70TA80 PO
--- NOTE | 2021-02-22 14:22 | Diagnostic Imaging Report ---
Indication: Left breast carcinoma. Patient status post lumpectomy. Correlation is made with prior mammogram 03/10/2020 and 07/18/2015. 2-D and 3-D bilateral diagnostic mammography was performed with CAD. Both breasts remain heterogeneously dense, limiting the sensitivity of mammography. Lumpectomy changes in the outer left breast posterior depth are noted. No mass or malignant appearing microcalcifications are seen. There are benign calcifications noted. Axillae are unremarkable. IMPRESSION: BI-RADS Category 2 No mammographic features suspicious for malignancy are identified. ACR BI-RADS Category 2: Benign findings. Result letter will be mailed to the patient. Note: At least 10% of breast cancer is not imaged by mammography. Dictated by: Dictated on workstation # [id number]
== END ==
LOC: RAD 13:08
PROVIDERS: ATTEND Nurse Practitioner Family
DX: C50.912 Malignant neoplasm of unspecified site of left female breast (principal); Z90.12 Acquired absence of left breast and nipple
CPT/HCPCS: 77066; G0279; 77062

== ENCOUNTER → 2021-03-13 | Outpatient (CLI) | payer BC ==
--- NOTE | 2021-03-13 15:05 | Diagnostic Imaging Report ---
INDICATION: 64-year-old asymptomatic postmenopausal female. COMPARISON: 09/24/2018 FINDINGS: AP Spine L2-L4: [BMD (g/cm2): 0.850] [T-Score: -2.9] [Z-Score: -1.4] [BMD Previous: 0.799] [BMD % Change: 6.4] LT Hip Neck: [BMD (g/cm2): 0.839] [T-Score: -1.4] [Z-Score: 0.0] LT Hip Total: [BMD (g/cm2):0.867] [T-Score:-1.1] [Z-Score: 0.0] [BMD Previous: 0.830] [BMD % Change: 4.5] RT Hip Neck: [BMD (g/cm2):0.836] [T-Score:-1.5] [Z-Score:0.0] RT Hip Total: [BMD (g/cm2):0.921] [T-score:-0.7] [Z-Score:0.5] [BMD Previous:0.856] [BMD % Change:7.6] *Indicates significant change from prior examination based on 95% confidence level. World Health Organization criteria for BMD interpretation classify patients as Normal (T-score at or above -1.0), Osteopenic (T-score between -1.0 and -2.5) or Osteoporotic (T-score at or below -2.5). LIMITATIONS AND MODIFICATION: None. FRACTURE RISK (FRAX SCORE): Not applicable as patient meets criteria for osteoporosis. IMPRESSION: 1. Osteoporosis. 2. No significant change in bone mineral density since prior examination. Dictated by: Dictated on workstation # [id number]
== END ==
LOC: RAD 10:00
PROVIDERS: ATTEND Nurse Practitioner Adult Health
DX: D05.12 Intraductal carcinoma in situ of left breast (principal); M81.0 Age-related osteoporosis without current pathological fracture; Z78.0 Asymptomatic menopausal state
CPT/HCPCS: 77080

== ENCOUNTER → 2021-03-22 | Outpatient (CLI) | payer BC ==
[2021-03-22 11:10] LABS: BASOPHILS % (AUTO) 1 % (0-10); EOSINOPHILS # (AUTO) 0.1 10^3/uL (0.0-0.3); EOSINOPHILS % (AUTO) 1 % (0-10); HEMATOCRIT 41 % (35-52); HEMOGLOBIN 13.2 g/dL (11.5-16.0); LYMPHOCYTES # (AUTO) 2.1 10^3/uL (1.0-4.0); LYMPHOCYTES % (AUTO) 30 % (12-44); MEAN CORPUSCULAR HEMOGLOBIN 30 pg (25-34); MEAN CORPUSCULAR HGB CONC 32 g/dL (32-36); MEAN CORPUSCULAR VOLUME 93 fL (80-99); MEAN PLATELET VOLUME 11.3 fL (9.0-12.2); MONOCYTES # (AUTO) 0.6 10^3/uL (0.0-1.0); MONOCYTES % (AUTO) 8 % (0-12); NEUTROPHILS # (AUTO) 4.2 10^3/uL (1.8-7.8); NEUTROPHILS % (AUTO) 60 % (42-75); PLATELET COUNT 193 10^3/uL (130-400); WHITE BLOOD COUNT 7.1 10^3/uL (4.3-11.0)
[2021-03-22 11:31] LABS: ALANINE AMINOTRANSFERASE 17 U/L (0-55); ALKALINE PHOSPHATASE 34 U/L (40-136); BILIRUBIN,TOTAL 0.4 MG/DL (0.1-1.0); BUN/CREATININE RATIO 26; CALCIUM 10.5 MG/DL (8.5-10.1); CARBON DIOXIDE 26 MMOL/L (21-32); CHLORIDE 109 MMOL/L (98-107); CREATININE SERUM 0.73 MG/DL (0.60-1.30); GFR ESTIMATED > 60; GLUCOSE 103 MG/DL (70-105); POTASSIUM 4.2 MMOL/L (3.6-5.0); SODIUM 142 MMOL/L (135-145); TOTAL PROTEIN 6.6 GM/DL (6.4-8.2)
== END ==
LOC: ONC 10:58
PROVIDERS: ATTEND Internal Medicine Hematology & Oncology
DX: D05.12 Intraductal carcinoma in situ of left breast (principal); M81.0 Age-related osteoporosis without current pathological fracture; M85.852 Other specified disorders of bone density and structure, left thigh; E78.5 Hyperlipidemia, unspecified; M85.851 Other specified disorders of bone density and structure, right thigh; Z92.21 Personal history of antineoplastic chemotherapy
CPT/HCPCS: 80053; 85025; G0463; 99213

== ENCOUNTER 2021-09-06 08:41 | Emergency (ER) | payer BC ==
[~2021-09-06] VITALS: Ht 170 cm; Wt 63.0 kg
--- NOTE | 2021-09-06 09:34 | Diagnostic Imaging Report ---
PROCEDURE: CT head wo r/o stroke. TECHNIQUE: Multiple contiguous axial images were obtained through the brain without the use of intravenous contrast. Auto Exposure Controls were utilized during the CT exam to meet ALARA standards for radiation dose reduction. INDICATION: Left-sided arm and leg numbness. COMPARISON: Comparison is made with head CT from 01/20/2020. FINDINGS: Ventricular size and sulcal pattern are stable. There is no sulcal effacement or midline shift. No acute intra-axial or extra-axial hemorrhage is detected. Cisterns are patent. Visualized paranasal sinuses are clear. IMPRESSION: No acute intracranial process is detected. Dictated by: Dictated on workstation # [id number]
[2021-09-06 09:35] LABS: BASOPHILS # (AUTO) 0.1 10^3/uL (0.0-0.1); BASOPHILS % (AUTO) 1 % (0-10); EOSINOPHILS % (AUTO) 1 % (0-10); HEMATOCRIT 42 % (35-52); HEMOGLOBIN 13.4 g/dL (11.5-16.0); LYMPHOCYTES # (AUTO) 1.5 10^3/uL (1.0-4.0); LYMPHOCYTES % (AUTO) 21 % (12-44); MEAN CORPUSCULAR HEMOGLOBIN 30 pg (25-34); MEAN CORPUSCULAR HGB CONC 32 g/dL (32-36); MEAN CORPUSCULAR VOLUME 93 fL (80-99); MEAN PLATELET VOLUME 10.8 fL (9.0-12.2); MONOCYTES # (AUTO) 0.4 10^3/uL (0.0-1.0); MONOCYTES % (AUTO) 6 % (0-12); NEUTROPHILS # (AUTO) 5.2 10^3/uL (1.8-7.8); NEUTROPHILS % (AUTO) 71 % (42-75); PLATELET COUNT 245 10^3/uL (130-400); WHITE BLOOD COUNT 7.3 10^3/uL (4.3-11.0)
[2021-09-06 09:52] LABS: BILIRUBIN,URINE NEGATIVE (NEGATIVE); CLARITY,URINE CLEAR; COLOR,URINE YELLOW; GLUCOSE, URINE (UA) NEGATIVE (NEGATIVE); KETONES,URINE NEGATIVE (NEGATIVE); LEUKOCYTE ESTERASE ,URINE NEGATIVE (NEGATIVE); NITRITE,URINE NEGATIVE (NEGATIVE); PROTEIN,URINE NEGATIVE (NEGATIVE)
[2021-09-06 09:53] LABS: ALBUMIN 4.1 GM/DL (3.2-4.5); CHLORIDE 105 MMOL/L (98-107); POTASSIUM 3.9 MMOL/L (3.6-5.0); SODIUM 141 MMOL/L (135-145)
[2021-09-06 09:54] LABS: CALCIUM 10.7 MG/DL (8.5-10.1)
[2021-09-06 09:55] LABS: GLUCOSE 110 MG/DL (70-105); TOTAL PROTEIN 7.1 GM/DL (6.4-8.2)
[2021-09-06 09:56] LABS: CARBON DIOXIDE 27 MMOL/L (21-32)
[2021-09-06 09:57] LABS: BILIRUBIN,TOTAL 0.6 MG/DL (0.1-1.0)
[2021-09-06 09:59] LABS: ALKALINE PHOSPHATASE 48 U/L (40-136); CREATININE SERUM 0.79 MG/DL (0.60-1.30); GFR ESTIMATED 73
[2021-09-06 10:00] LABS: BUN/CREATININE RATIO 24; FIBRIN DEGRADATION PRODUCTS < 0.27 UG/ML (0.00-0.49); PARTIAL THROMBOPLASTIN TIME 28 SEC (24-35); PROTHROMBIN TIME PATIENT 13.5 SEC (12.2-14.7)
[2021-09-06 10:02] LABS: ALANINE AMINOTRANSFERASE 18 U/L (0-55)
--- NOTE | 2021-09-06 10:03 | ED Neurological Problem ---
General Chief Complaint: Neuro-Stroke Like Symptoms Stated Complaint: L SIDED EXT PINS/NEEDLES,DIZZINESS Nursing Triage Note: ARRIVED VIA AMB WITH COMPLAINTS OF WAKING UP AT 0530 AND HER LEFT LEG FELT NUMB THEN HER LEF ARM WENT NUMB. STATES NOW IT IS TINGLING. Source: patient Exam Limitations: no limitations History of Present Illness Date Seen by Provider: Sep 06, 2021 Time Seen by Provider: 08:49 Initial Comments Mrs. Hdez is a 66-year-old woman who presents to the emergency room with primary complaint of paresthesias of both left extremities. She woke about 05:30 with significant paresthesia in the left leg. She retained motor control and was able to walk. She thought her leg was just "asleep" due to sleeping in an awkward position. She went back to sleep and then woke again with paresthesia persistent in the left leg but now also present in the left arm. Again there was no true weakness. Last known well time was around midnight. She denies any neurologic deficits. She has had no injury, no neck pain, and no prior episodes. Allergies and Home Medications Allergies Coded Allergies: No Known Drug Allergies (Unverified , 12/24/17) Patient Home Medication List Home Medication List Reviewed: Yes Alendronate Sodium (Alendronate Sodium) 70 Mg Tablet, 70 MG PO FRIDAY, (Reported) Entered as Reported by: LASHON ORTIZ on 12/30/19 161 Ascorbic Acid (Vitamin C) 250 Mg Tab, 250 MG PO DAILY, (Reported) Entered as Reported by: LASHON ORTIZ on 12/30/19 1614 Aspirin (Aspirin) 81 Mg Tab.chew, 81 MG PO DAILY Prescribed by: ABEL STEWART on 12/31/19 1114 Atorvastatin Calcium (Atorvastatin Calcium) 20 Mg Tablet, 20 MG PO HS, (Reported) Entered as Reported by: LASHON ORTIZ on 12/30/19 1612 Cholecalciferol (Vitamin D3) (Vitamin D3) 125 Mcg Capsule, 125 MCG PO DAILY, (Reported) Entered as Reported by: LASHON ORTIZ on 12/30/19 1614 Tamoxifen Citrate (Tamoxifen Citrate) 20 Mg Tablet, 20 MG PO DAILY, (Reported) Entered as Reported by: ADDY MONTES on 12/24/17 1041 Review of Systems Review of Systems Constitutional: no symptoms reported Eyes: No Symptoms Reported Ears, Nose, Mouth, Throat: no symptoms reported Respiratory: no symptoms reported Cardiovascular: no symptoms reported Gastrointestinal: no symptoms reported Genitourinary: no symptoms reported Musculoskeletal: no symptoms reported Skin: no symptoms reported Psychiatric/Neurological: See HPI Endocrine: No Symptoms Reported Past Ehztofw-Vxlnvp-Yltdoa Hx Patient Social History Tobacco Use?: No Substance use?: No Alcohol Use?: No Immunizations Up To Date COVID19 Vaccine Biometrics Technician: MODERNA Seasonal Allergies Seasonal Allergies: No Past Medical History Surgeries: Yes (lumpectomy) Breast (Lumpectomy), Section Respiratory: No Cardiac: Yes High Cholesterol Neurological: No : No Reproductive Disorders: No Genitourinary: No Gastrointestinal: No Musculoskeletal: Yes Osteoporosis Endocrine: No Cancer: Yes Breast Did You Recieve Any Treatments: Yes What Type of Treatment Did You: Surgical Intervention Psychosocial: No Integumentary: No Blood Disorders: No Family Medical History No Pertinent Family Hx Physical Exam Vital Signs Vital Signs - First Documented 09/06/21 08:45 Temp 36.3 Pulse 89 Resp 16 B/P (MAP) 160/84 (109) Pulse Ox 98 O2 Delivery Room Air Capillary Refill : Less Than 3 Seconds Height, Weight, BMI Height: 5'7.00" Weight: 140lbs. 0.0oz. 63.219341su; 21.00 BMI Method:Stated General Appearance: WD/WN, no apparent distress HEENT: PERRL/EOMI, normal ENT inspection, TMs normal, pharynx normal Neck: normal inspection Respiratory: lungs clear, normal breath sounds, no respiratory distress Cardiovascular: regular rate, rhythm, no edema, no murmur Gastrointestinal: non tender, soft; No distended Extremities: non-tender, normal inspection, no pedal edema Neurologic/Psychiatric: food safety specialist II-XII nml as tested, no motor/sensory deficits, alert, normal mood/affect, oriented x 3 Crainal Nerves: normal hearing, normal speech, PERRL Coordination/Gait: normal finger to nose, normal gait Motor/Sensory: no motor deficit, no sensory deficit Skin: normal color, warm/dry Stroke NIH Stroke Scale Assessment Select: Initial Level of Consciousness: 0=Alert (0), Level of Consciousness- Questions: 0=Answers both month/age (0), LOC Commands: 0=Performs both tasks (0), Visual Duncan: 0=No visual loss (0), Facial Movement (Facial Paresis): 0=Normal symmetrical mnt (0), Motor Function-Arms Right: 0=No drift (0), Motor Function-Arms Left: 0=No drift (0), Motor Function-Legs Right: 0=No dri ft (0), Motor Function-Legs Left: 0=No drift (0), Limb Ataxia: 0=Absent (0), Sensory: 0=Normal:no loss (0), Best Language: 0=No aphasia (0), Dysarthria: 0=Normal (0), Extinction & Inattention: 0=No abnormality (0), Total: 0 Progress/Results/Core Measures Results/Orders Lab Results Laboratory Tests Test 09/06/21 09:28 09/06/21 09:45 09/06/21 09:53 Range/Units White Blood Count 7.3 4.3-11.0 10^3/uL Red Blood Count 4.55 3.80-5.11 10^6/uL Hemoglobin 13.4 11.5-16.0 g/dL Hematocrit 42 35-52 % Mean Corpuscular Volume 93 80-99 fL Mean Corpuscular Hemoglobin 30 25-34 pg Mean Corpuscular Hemoglobin Concent 32 32-36 g/dL Red Cell Distribution Width 13.2 10.0-14.5 % Platelet Count 245 130-400 10^3/uL Mean Platelet Volume 10.8 9.0-12.2 fL Immature Granulocyte % (Auto) 1 % Neutrophils (%) (Auto) 71 42-75 % Lymphocytes (%) (Auto) 21 12-44 % Monocytes (%) (Auto) 6 0-12 % Eosinophils (%) (Auto) 1 0-10 % Basophils (%) (Auto) 1 0-10 % Neutrophils # (Auto) 5.2 1.8-7.8 10^3/uL Lymphocytes # (Auto) 1.5 1.0-4.0 10^3/uL Monocytes # (Auto) 0.4 0.0-1.0 10^3/uL Eosinophils # (Auto) 0.0 0.0-0.3 10^3/uL Basophils # (Auto) 0.1 0.0-0.1 10^3/uL Immature Granulocyte # (Auto) 0.0 0.0-0.1 10^3/uL Prothrombin Time 13.5 12.2-14.7 SEC INR Comment 1.0 0.8-1.4 Activated Partial Thromboplast Time 28 24-35 SEC D-Dimer < 0.27 0.00-0.49 UG/ML Sodium Level 141 135-145 MMOL/L Potassium Level 3.9 3.6-5.0 MMOL/L Chloride Level 105 98-107 MMOL/L Carbon Dioxide Level 27 21-32 MMOL/L Anion Gap 9 5-14 MMOL/L Blood Urea Nitrogen 19 H 7-18 MG/DL Creatinine 0.79 0.60-1.30 MG/DL Estimat Glomerular Filtration Rate 73 BUN/Creatinine Ratio 24 Glucose Level 110 H 70-105 MG/DL Calcium Level 10.7 H 8.5-10.1 MG/DL Corrected Calcium 10.6 H 8.5-10.1 MG/DL Total Bilirubin 0.6 0.1-1.0 MG/DL Aspartate Amino Transf (AST/SGOT) 21 5-34 U/L Alanine Aminotransferase (ALT/SGPT) 18 0-55 U/L Alkaline Phosphatase 48 40-136 U/L Troponin I < 0.028 <0.028 NG/ML Total Protein 7.1 6.4-8.2 GM/DL Albumin 4.1 3.2-4.5 GM/DL Thyroid Stimulating Hormone (TSH) 1.27 0.35-4.94 UIU/ML Free Thyroxine 0.90 0.70-1.48 NG/DL Urine Color YELLOW Urine Clarity CLEAR Urine pH 6.0 5-9 Urine Specific Cobden 1.020 1.016-1.022 Urine Protein NEGATIVE NEGATIVE Urine Glucose (UA) NEGATIVE NEGATIVE Urine Ketones NEGATIVE NEGATIVE Urine Nitrite NEGATIVE NEGATIVE Urine Bilirubin NEGATIVE NEGATIVE Urine Urobilinogen 0.2 < = 1.0 MG/DL Urine Leukocyte Esterase NEGATIVE NEGATIVE Urine RBC (Auto) NEGATIVE NEGATIVE Urine RBC NONE /HPF Urine WBC NONE /HPF Urine Squamous Epithelial Cells RARE /HPF Urine Crystals NONE /LPF Urine Bacteria NEGATIVE /HPF Urine Casts NONE /LPF Urine Mucus NEGATIVE /LPF Urine Culture Indicated NO Glucometer 136 H 70-110 MG/DL My Orders Orders - ATA BILLINGSLEY MD Cbc With Automated Diff (09/06/21 09:07) Protime With Inr (09/06/21 09:07) Partial Thromboplastin Time (09/06/21 09:07) Comprehensive Metabolic Panel (09/06/21 09:07) Fibrin Degradation Products (09/06/21 09:07) Troponin I Veronica (09/06/21 09:07) Ua Culture If Indicated (09/06/21 09:07) Chest 1 View, Ap/Pa Only (09/06/21 09:07) Ekg Tracing (09/06/21 09:07) Accucheck Stat ONCE (09/06/21 09:07) Ed Iv/Invasive Line Start (09/06/21 09:07) Vital Signs Stroke Patient Q15M (09/06/21 09:07) Ct Head Wo-R/O Stroke (09/06/21 09:07) O2 (09/06/21 09:07) Intake & Output 06,14,22 (09/06/21 09:07) Monitor-Rhythm Ecg Trace Only (09/06/21 09:07) Dysphagia Screening Tool (09/06/21 09:07) Mri Brain W/O Contrast (09/06/21 10:16) Mri Cervical Spine W/O Contras (09/06/21 10:16) Ct Angio Head/Neck (09/06/21 12:02) Iohexol Injection (Omnipaque 350 Mg/Ml 1 (09/06/21 12:15) Received Contrast (Hold Metformin- Contr (09/06/21 12:15) Ns (Ivpb) (Sodium Chloride 0.9% Ivpb Bag (09/06/21 12:15) Thyroid Stimulating Hormone (09/06/21 13:25) Free T4 (Free Thyroxine) (09/06/21 13:25) Medications Given in ED Current Medications Medications Dose Ordered Sig/Aaron Route Start Time Stop Time Status Last Admin Dose Admin Iohexol 100 ml ONCE ONCE IV 09/06/21 12:15 09/06/21 12:16 DC 09/06/21 12:28 75 ML Sodium Chloride 100 ml ONCE ONCE IV 09/06/21 12:15 09/06/21 12:16 DC 09/06/21 12:28 80 ML Vital Signs/I&O 09/06/21 09/06/21 08:45 13:50 Temp 36.3 Pulse 89 68 Resp 16 16 B/P (MAP) 160/84 (109) 119/68 Pulse Ox 98 97 O2 Delivery Room Air Room Air Blood Pressure Mean: 109 FSBG Bedside Testing Finger Stick Blood Glucose: 136 Progress Progress Note #1: Time: 10:26 Progress Note Stroke activation was paged although there was no measurable deficit on exam and NIH score was 0. She was not a candidate for thrombolytic therapy due to no measurable deficits and greater than 4.5 hours since last known well time. Patient still has paresthesias throughout the left extremities, although they are diminishing. CT of the head was unremarkable. Lab work-up was also unremarkable with no explanation for her symptoms. She is now going for MRI of the head and cervical spine. I discussed the situation with the stroke neurologist, Dr. Rosenberg, at [facility]. She is recommending imaging of the vessels as well. If the MR studies do not demonstrate any specific cause for her symptoms, we will proceed with CT angiogram of the head and neck. This plan was also discussed with Dr. Espinoza, radiologist, who is also in agreement. Progress Note #2: Progress Note Work-up was essentially unremarkable. There was facet disease and neuroforaminal narrowing on the MRI of the cervical spine, but this would not explain to the paresthesias in the lower extremity. Paresthesias eventually resolved. There was incidental finding of thyroid nodules and thyroid labs were added to her work-up. Results were pending at the time of discharge but were later found to be normal.. Initial ECG Impression Date: Sep 06, 2021 Initial ECG Impression Time: 09:47 Initial ECG Rate: 78 Initial ECG Rhythm: Normal Sinus Comment Normal sinus rhythm with no ST elevation or depression. No abnormal intervals. LVH with secondary repolarization abnormality by automated read. Diagnostic Imaging Diagonstic Imaging: CT Plain Films/CT/US/NM/MRI: head Comments CT head viewed by me and report reviewed. See report below: NAME: ANITHA HDEZ [facility] REC#: [id number] PT STATUS: REG ER : 1955 PHYSICIAN: ATA BILLINGSLEY MD ADMIT DATE: 09/06/21/ER Draft Date of Exam:09/06/21 CT HEAD WO-R/O STROKE PROCEDURE: CT head wo r/o stroke. TECHNIQUE: Multiple contiguous axial images were obtained through the brain without the use of intravenous contrast. Auto Exposure Controls were utilized during the CT exam to meet ALARA standards for radiation dose reduction. INDICATION: Left-sided arm and leg numbness. COMPARISON: Comparison is made with head CT from 01/20/2020. FINDINGS: Ventricular size and sulcal pattern are stable. There is no sulcal effacement or midline shift. No acute intra-axial or extra-axial hemorrhage is detected. Cisterns are patent. Visualized paranasal sinuses are clear. IMPRESSION: No acute intracranial process is detected. Dictated on workstation # [id number] Dict: 09/06/21926 Trans: 09/06/21 0933 [facility] [id number] Interpreted by: YESSY ESPINOZA MD Diagonstic Imaging: MRI Plain Films/CT/US/NM/MRI: head Comments NAME: ANITHA HDEZ MED REC#: [id number] PT STATUS: DEP ER : 1955 PHYSICIAN: ATA BILLINGSLEY MD ADMIT DATE: 09/06/21/ER Signed Date of Exam:09/06/21 MRI BRAIN W/O CONTRAST PROCEDURE: MR imaging of the brain without contrast. TECHNIQUE: Multiplanar, multisequence MR imaging of the brain was performed without contrast. INDICATION: Left-sided numbness. FINDINGS: The diffusion-weighted images are without evidence of diffusion restriction to suggest acute ischemia. The normal expected flow-voids within the carotid siphons are seen. There is no midline shift. No acute intra-axial or extra-axial hemorrhage is detected. Corpus callosum is unremarkable. Sella and parasellar structures are unremarkable. Ventricular size and sulcal pattern are appropriate for the patient's age. IMPRESSION: Unremarkable noncontrast MRI of the brain. No acute feature is detected. Dictated by: Dictated on workstation # [id number] Dict: 09/06/21 1112 Trans: 09/06/21 1535 [id number] Interpreted by: YESSY ESPINOZA MD Electronically signed by: YESSY ESPINOZA MD 09/06/21 1535 Reviewed: Reviewed by Sd Diagonstic Imaging: MRI Plain Films/CT/US/NM/MRI: c-spine Comments NAME: ANITHA HDEZ MED REC#: [id number] PT STATUS: DEP ER : 1955 PHYSICIAN: ATA BILLINGSLEY MD ADMIT DATE: 09/06/21/ER Signed Date of Exam:09/06/21 MRI CERVICAL SPINE W/O CONTRAS PROCEDURE: MR imaging cervical spine without contrast. TECHNIQUE: Multiplanar, multisequence MR imaging of the cervical spine was performed without contrast. INDICATION: Left-sided numbness. No relevant comparison. FINDINGS: The brainstem and cervical spinal cord as well as visualized upper thoracic spinal cord have a normal volume morphology and signal intensity. No cord compression, edema or hemorrhage. There are multiple scattered fat-containing lower cervical and upper thoracic vertebral body hemangiolipomas with no acute or suspect marrow signal abnormality. There is no marrow edema. There is exaggeration of the cervical lordosis but no listhesis. The vertebral statures are normal. There is no marrow edema or acute appearing bony pathology. The patient's spinal canal widely patent at each vertebral body and disc space level. At C3-C4, there is mild bi-foraminal stenosis. At C4-C5, there is moderate to severe left and mild right foraminal stenosis. At C5-C6, there is [id number] bi-foraminal stenosis. At C6-C7 and C7-T1, no appreciable foraminal encroachment. No acute appearing abnormality. IMPRESSION: Normal spinal cord. Normal alignment. No acute bony pathology. Uncovertebral joint spurring and facet arthrosis result in multilevel foraminal stenoses. No acute appearing abnormality. Dictated by: Dictated on workstation # [id number] Dict: 09/06/21 1059 Trans: 09/06/21 1703 [id number] Interpreted by: GRAYSON ZHANG Electronically signed by: GRAYSON ZHANG 09/06/21 1703 Diagonstic Imaging: CT Plain Films/CT/US/NM/MRI: other (Angiogram head and neck) Comments CT angiogram head and neck viewed by me and report reviewed. See report below: NAME: ANITHA HDEZ [facility] REC#: [id number] PT STATUS: DEP ER : 1955 PHYSICIAN: ATA BILLINGSLEY MD ADMIT DATE: 09/06/21/ER Signed Date of Exam:09/06/21 CT ANGIO HEAD/NECK CLINICAL INDICATION: Patient with complaints of waking up at 05:30 and her left leg felt numb and her left arm went numb. States that there is now tingling. EXAMS: 1: Head CT with and without IV contrast. Auto Exposure Controls were utilized during the CT exam to meet ALARA standards for radiation dose reduction. 2: CT angiogram of the head and neck performed with 100 cc of Omnipaque 350 IV contrast. Sagittal and coronal MIP reformations were created for better visualization of vascular anatomy. CT angiogram was post-processed using RAPID LVO detection to include quantitative measurements of cerebral blood flow and automated results notification to the stroke and/or neurointerventional team. Comparison: MRI of the brain performed without IV contrast dated 09/06/2021. HEAD CT FINDINGS: There is no evidence of acute cerebral infarct, intracranial hemorrhage, or gross mass effect. There is no abnormal IV contrast enhancement. Again seen is dural calcification along the anterior falx cerebri. There is normal nevarez-white matter distinction. There is no significant midline shift or herniation. There is no evidence of hydrocephalus. The basal cisterns are unremarkable. The skull, extracranial soft tissue, and orbits are unremarkable. The paranasal sinuses are unremarkable. Temporal bones show no significant abnormality. CT ANGIOGRAM FINDINGS: There is dense contrast bolus seen within the left subclavian vein and innominate vein with streak artifact obscuring portions of the aortic arch. There is common origin of the brachiocephalic artery and left common carotid consistent with bovine arch. The brachiocephalic artery and bilateral subclavian arteries are patent. The right common carotid artery, cervical right ICA and right ECA are patent. The left common carotid artery, cervical left ICA, and left ECA are patent. There is note of vascular irregularity and beaded appearance involving the mid and distal bilateral cervical ICAs, likely related to fibromuscular dysplasia. There is no evidence of dissection or significant pseudoaneurysm. There is no significant stenosis seen in the regions. The bilateral cervical vertebral arteries are patent. The bilateral intradural vertebral arteries are patent. The right PICA and left AICA-PICA are patent. The basilar artery, bilateral superior cerebellar arteries, and bilateral wardrobe consultant are patent. The petrous, cavernous, and supraclinoid ICA are patent. The bilateral ACAs and distal branches are patent. The bilateral MCAs and distal branches are patent. There is multinodular bilateral thyroid lobes noted with the left thyroid lobe larger than the right. The remainder of the neck soft tissue structures shows no significant abnormality. The visualized upper lung duncan are clear. There are small degenerative spurs involving the cervical spine IMPRESSION: 1: Stable CT scan of the brain with no evidence of acute intracranial process. There is no abnormal IV contrast enhancement. 2: CT angiogram of the [place] and neck shows no significant stenosis, aneurysm, or dissection. 3: There are vascular findings consistent with fibromuscular dysplasia involving the mid to distal bilateral cervical ICAs with no significant pseudoaneurysm or stenosis. 4: Multinodular thyroid gland. Nonemergent thyroid ultrasound would better evaluate. The results of this report were discussed with Dr. Perez via the telephone on 09/06/2021 at 12:42 hours. Dictated by: Dictated on workstation # [id number] Dict: 09/06/21 1231 Trans: 09/06/21 1716 [facility] [phone] Interpreted by: CHRISTINA WEST MD Electronically signed by: CHRISTINA WEST MD 09/06/21 1716 Diagonstic Imaging: Xray Plain Films/CT/US/NM/MRI: chest Comments NAME: ANITHA HDEZ MED REC#: [id number] PT STATUS: REG ER : 1955 PHYSICIAN: ATA BILLINGSLEY MD ADMIT DATE: 09/06/21/ER Signed Date of Exam:09/06/21 CHEST 1 VIEW, AP/PA ONLY EXAMINATION: Chest 1 view HISTORY: Stroke activation COMPARISON: 12/30/2019 FINDINGS: Heart size and pulmonary vasculature are normal. Stable mild interstitial opacities in the lung bases. Stable likely calcified granulomas within the lungs. No pleural effusion or pneumothorax. The osseous structures are intact. IMPRESSION: 1. Stable exam without acute radiographic abnormality in the chest. Dictated by: Dictated on workstation # [id number] Dict: 09/06/21 1016 Trans: 09/06/21 1100 [facility] [id number] Interpreted by: LEON WHIPPLE DO Electronically signed by: LEON WHIPPLE DO 09/06/21 1100 Departure Impression Primary Impression: Arm paresthesia, left Additional Impressions: Left leg paresthesias Thyroid nodule Disposition: 01 HOME, SELF-CARE Condition: Improved Departure-Patient Inst. Decision time for Depature: 13:44 Referrals: JD CHAU MD (PCP/Family) Primary Care Physician Patient Instructions: Paresthesia (DC), Thyroid Nodules Add. Discharge Instructions: The exact cause of your paresthesias is uncertain. Although unlikely, it could be related to TIA or some other undiagnosed neurologic phenomenon. Please follow-up with your primary care provider and discuss further. Also discussed your thyroid nodules with your primary care provider and review thyroid labs at your follow-up appointment. Continue taking aspirin 81 mg daily until otherwise instructed. Call with questions or concerns. Return to the emergency room immediately if you have any progressive or new neurologic symptoms such as weakness of an extremity, vision changes, difficulty with speech or swallow, confusion, etc. All discharge instructions reviewed with patient and/or family. Voiced understanding. Copy Copies To 1: JD CHAU MD, JOSHUA T MD Sep 06, 2021 10:03
[2021-09-06 10:10] LABS: BACTERIA,URINE NEGATIVE /HPF; SQUAMOUS EPITHELIAL CELL,UR RARE /HPF
--- NOTE | 2021-09-06 10:19 | Diagnostic Imaging Report ---
EXAMINATION: Chest 1 view HISTORY: Stroke activation COMPARISON: 12/30/2019 FINDINGS: Heart size and pulmonary vasculature are normal. Stable mild interstitial opacities in the lung bases. Stable likely calcified granulomas within the lungs. No pleural effusion or pneumothorax. The osseous structures are intact. IMPRESSION: 1. Stable exam without acute radiographic abnormality in the chest. Dictated by: Dictated on workstation # [id number]
--- NOTE | 2021-09-06 11:07 | Diagnostic Imaging Report ---
PROCEDURE: MR imaging cervical spine without contrast. TECHNIQUE: Multiplanar, multisequence MR imaging of the cervical spine was performed without contrast. INDICATION: Left-sided numbness. No relevant comparison. FINDINGS: The brainstem and cervical spinal cord as well as visualized upper thoracic spinal cord have a normal volume morphology and signal intensity. No cord compression, edema or hemorrhage. There are multiple scattered fat-containing lower cervical and upper thoracic vertebral body hemangiolipomas with no acute or suspect marrow signal abnormality. There is no marrow edema. There is exaggeration of the cervical lordosis but no listhesis. The vertebral statures are normal. There is no marrow edema or acute appearing bony pathology. The patient's spinal canal widely patent at each vertebral body and disc space level. At C3-C4, there is mild bi-foraminal stenosis. At C4-C5, there is moderate to severe left and mild right foraminal stenosis. At C5-C6, there is [id number]-hyxzmhox bi-foraminal stenosis. At C6-C7 and C7-T1, no appreciable foraminal encroachment. No acute appearing abnormality. IMPRESSION: Normal spinal cord. Normal alignment. No acute bony pathology. Uncovertebral joint spurring and facet arthrosis result in multilevel foraminal stenoses. No acute appearing abnormality. Dictated by: Dictated on workstation # [id number]
--- NOTE | 2021-09-06 11:18 | Diagnostic Imaging Report ---
PROCEDURE: MR imaging of the brain without contrast. TECHNIQUE: Multiplanar, multisequence MR imaging of the brain was performed without contrast. INDICATION: Left-sided numbness. FINDINGS: The diffusion-weighted images are without evidence of diffusion restriction to suggest acute ischemia. The normal expected flow-voids within the carotid siphons are seen. There is no midline shift. No acute intra-axial or extra-axial hemorrhage is detected. Corpus callosum is unremarkable. Sella and parasellar structures are unremarkable. Ventricular size and sulcal pattern are appropriate for the patient's age. IMPRESSION: Unremarkable noncontrast MRI of the brain. No acute feature is detected. Dictated by: Dictated on workstation # [id number]
[2021-09-06] MEDS ORDERED: NS 100 ML (IVPB) BAG IV ONE (12:15)
[2021-09-06] MEDS ORDERED: IOHEXOL 350 MG/ML 100 ML (OMNIPAQUE 350) VIAL IV ONE (12:15)
[2021-09-06] MEDS ORDERED: HOLD METFORMIN - RECEIVED CONTRAST 20 ML VIAL IV SCH (12:15)
--- NOTE | 2021-09-06 13:02 | Diagnostic Imaging Report ---
CLINICAL INDICATION: Patient with complaints of waking up at 05:30 and her left leg felt numb and her left arm went numb. States that there is now tingling. EXAMS: 1: Head CT with and without IV contrast. Auto Exposure Controls were utilized during the CT exam to meet ALARA standards for radiation dose reduction. 2: CT angiogram of the head and neck performed with 100 cc of Omnipaque 350 IV contrast. Sagittal and coronal MIP reformations were created for better visualization of vascular anatomy. CT angiogram was post-processed using RAPID LVO detection to include quantitative measurements of cerebral blood flow and automated results notification to the stroke and/or neurointerventional team. Comparison: MRI of the brain performed without IV contrast dated 09/06/2021. HEAD CT FINDINGS: There is no evidence of acute cerebral infarct, intracranial hemorrhage, or gross mass effect. There is no abnormal IV contrast enhancement. Again seen is dural calcification along the anterior falx cerebri. There is normal nevarez-white matter distinction. There is no significant midline shift or herniation. There is no evidence of hydrocephalus. The basal cisterns are unremarkable. The skull, extracranial soft tissue, and orbits are unremarkable. The paranasal sinuses are unremarkable. Temporal bones show no significant abnormality. CT ANGIOGRAM FINDINGS: There is dense contrast bolus seen within the left subclavian vein and innominate vein with streak artifact obscuring portions of the aortic arch. There is common origin of the brachiocephalic artery and left common carotid consistent with bovine arch. The brachiocephalic artery and bilateral subclavian arteries are patent. The right common carotid artery, cervical right ICA and right ECA are patent. The left common carotid artery, cervical left ICA, and left ECA are patent. There is note of vascular irregularity and beaded appearance involving the mid and distal bilateral cervical ICAs, likely related to fibromuscular dysplasia. There is no evidence of dissection or significant pseudoaneurysm. There is no significant stenosis seen in the regions. The bilateral cervical vertebral arteries are patent. The bilateral intradural vertebral arteries are patent. The right PICA and left AICA-PICA are patent. The basilar artery, bilateral superior cerebellar arteries, and bilateral applications chemist are patent. The petrous, cavernous, and supraclinoid ICA are patent. The bilateral ACAs and distal branches are patent. The bilateral MCAs and distal branches are patent. There is multinodular bilateral thyroid lobes noted with the left thyroid lobe larger than the right. The remainder of the neck soft tissue structures shows no significant abnormality. The visualized upper lung booth are clear. There are small degenerative spurs involving the cervical spine IMPRESSION: 1: Stable CT scan of the brain with no evidence of acute intracranial process. There is no abnormal IV contrast enhancement. 2: CT angiogram of the [place] and neck shows no significant stenosis, aneurysm, or dissection. 3: There are vascular findings consistent with fibromuscular dysplasia involving the mid to distal bilateral cervical ICAs with no significant pseudoaneurysm or stenosis. 4: Multinodular thyroid gland. Nonemergent thyroid ultrasound would better evaluate. The results of this report were discussed with Dr. Perez via the telephone on 09/06/2021 at 12:42 hours. Dictated by: Dictated on workstation # [id number]
[2021-09-06 13:50] VITALS: BP 119/68
[2021-09-06 14:02] LABS: FREE T4 (FREE THYROXINE) 0.9 NG/DL (0.70-1.48)
== END 2021-09-06 13:50 | disposition home or self-care (01) ==
LOC: EDUNIT# 08:41 → ER 08:43
DX: R20.2 Paresthesia of skin (principal); E04.1 Nontoxic single thyroid nodule; E78.00 Pure hypercholesterolemia, unspecified; Z79.899 Other long term (current) drug therapy; Z79.82 Long term (current) use of aspirin
CPT/HCPCS: 36415; 70450; 70496; 70498; 70551; 71045; 72141; 80053; 81000; 82947; 84439; 84443; 84484; 85025; 85379; 85610; 85730; 93005; 93041

== ENCOUNTER → 2021-09-28 | Outpatient (CLI) | payer BC ==
--- NOTE | 2021-09-28 14:29 | Diagnostic Imaging Report ---
PROCEDURE: US carotid duplex, bilateral. TECHNIQUE: Multiple real-time grayscale images were obtained over the carotid arteries in various projections, bilaterally. Additional spectral analysis and color Doppler duplex images were also obtained. INDICATION: Transient ischemic attack. COMPARISON: 09/06/2021. FINDINGS: The right common carotid artery has a normal course without evidence of focal stenosis. Small amount of scattered atherosclerotic plaque is seen in the right carotid bulb and proximal internal right carotid artery. No hemodynamically significant stenosis is seen in the right carotid system. The right external carotid artery is visualized and has a normal appearance. Intimal thickening is seen in the left common carotid artery. No focal stenosis is seen in the left common carotid artery. There is a small amount of atherosclerotic plaque in the left carotid bulb and proximal left internal carotid artery without evidence of significant stenosis. The left external carotid artery is visualized and is unremarkable. Both vertebral arteries demonstrate antegrade flow. Incidentally noted nodule in the left lobe of the thyroid measuring 2.5 x 1.6 x 1.6 cm. IMPRESSION: 1. No hemodynamically significant stenosis is seen in the bilateral carotid systems. 2. Small amount of scattered atherosclerotic plaque in the bilateral carotid systems. 3. Nodule in the left lobe of the thyroid measuring 2.5 cm. Recommend correlation with TSH levels and thyroid ultrasound. Parameters based on the consensus panel Stern-Scale and Doppler ultrasound criteria published July 2003, Radiology, Volume 229. DOPPLER (peak systolic velocity M/S Right Left CCA .87 .79 ICA Proximal .71 .61 ICA Mid 1.04 .66 ICA Distal 1.30 .79 RATIO 1.49 .91 ECA 1.12 .70 VERT .57 .47 Dictated by: Dictated on workstation # [id number]
== END ==
LOC: RAD 12:45
PROVIDERS: ATTEND Internal Medicine
DX: I65.23 Occlusion and stenosis of bilateral carotid arteries (principal); E04.1 Nontoxic single thyroid nodule
CPT/HCPCS: 93880

== ENCOUNTER → 2021-10-11 | Outpatient (CLI) | payer BC ==
--- NOTE | 2021-10-11 16:04 | Diagnostic Imaging Report ---
PROCEDURE: US Thyroid. TECHNIQUE: Multiple real-time grayscale images were obtained of the thyroid in various projections. INDICATION: Follow-up thyroid nodule. COMPARISON: No previous studies for comparison at this time. FINDINGS: The right lobe measures 4 x 1 x 1.6 cm. The left lobe measures 4.7 x 2 x 1.8 cm. Isthmus is 4 mm. There is a slightly heterogeneous and slightly hypoechoic nodule, oval in nature, within the left lower lobe. This measures approximately 2.5 cm in width and 1.7 cm in height. There are a few tiny calcifications present. This is well circumscribed. There is a second predominantly isoechoic to slightly hypoechoic nodule in the isthmus measuring 1.4 cm in width and 0.8 cm in height. IMPRESSION: 1. There is a left lobe predominantly solid hypoechoic wider than tall smooth-margined nodule with a few scattered calcifications. This measures 2.5 cm in width. This is moderately suspicious. Due to the size being greater than 1.5 cm, would consider fine-needle aspiration biopsy. TI-RADS 4. 2. 1.4 x 0.8 cm solid nodule within the isthmus. TI-RADS 3. Dictated by: Dictated on workstation # [id number]
== END ==
LOC: RAD 12:45
PROVIDERS: ATTEND Internal Medicine
DX: E04.2 Nontoxic multinodular goiter (principal)
CPT/HCPCS: 76536

== ENCOUNTER → 2021-10-25 | Outpatient (CLI) | payer BC ==
[~2021-10-25] VITALS: Ht 167 cm; Wt 64.0 kg
[~2021-10-25] MED LIST changes: +LIDOCAINE 1% INJ 20 ML VIAL INJ ONE
--- NOTE | 2021-10-25 11:51 | Diagnostic Imaging Report ---
Indication: Left lobe thyroid nodule. Patient presents for ultrasound-guided fine-needle aspiration biopsy. Patient brought to the procedure room placed on the table in the supine position. Ultrasound imaging of the left neck was performed to evaluate appropriate entry site. Left neck was then prepped and draped in usual sterile fashion. Small amount of 1% lidocaine was utilized for local anesthesia. A total of 4 passes were made into the dominant solid nodule left lobe of thyroid utilizing 25-gauge needles and fine-needle aspiration technique. A single pass was made with a Rotex needle and Rotex biopsy was performed. [place] were removed and hemostasis was obtained using manual compression. Patient tolerated procedure well and left the department in stable condition. IMPRESSION: Successful ultrasound-guided left lobe thyroid nodule fine-needle aspiration and Rotex biopsy. Pathology results are currently pending. Dictated by: Dictated on workstation # [id number]
== END ==
LOC: RAD 10:44
PROVIDERS: ATTEND Internal Medicine
DX: E04.1 Nontoxic single thyroid nodule (principal)
CPT/HCPCS: 10005

== ENCOUNTER → 2022-02-25 | Outpatient (CLI) | payer BC ==
[~2022-02-25] MED LIST changes: -LIDOCAINE 1% INJ 20 ML VIAL INJ ONE
--- NOTE | 2022-02-25 13:38 | Diagnostic Imaging Report ---
INDICATION: Routine screening. COMPARISON: 02/22/2021 and 03/10/2020. TECHNIQUE: 2D and 3D bilateral screening mammography was performed with CAD. FINDINGS: Both breasts are heterogeneously dense, limiting the sensitivity of mammography. There are post therapeutic changes in the left breast which appear stable. Benign calcifications are noted. No mass or malignant-appearing microcalcifications are seen. The axillae are unremarkable. IMPRESSION: No mammographic features suspicious for malignancy are identified. ACR BI-RADS Category 2: Benign findings. Result letter will be mailed to the patient. Note: At least 10% of breast cancer is not imaged by mammography. Dictated by: Dictated on workstation # [id number]
== END ==
LOC: RAD 10:15
PROVIDERS: ATTEND Internal Medicine Hematology & Oncology
DX: Z12.31 Encounter for screening mammogram for malignant neoplasm of breast (principal)
CPT/HCPCS: 77063; 77067

== ENCOUNTER → 2023-03-24 | Outpatient (CLI) | payer MEDICARE, OTHER ==
--- NOTE | 2023-03-24 09:52 | Diagnostic Imaging Report ---
INDICATION: Postmenopausal screening for osteoporosis COMPARISON: 03/13/2021 FINDINGS: AP Spine L1-L4: [BMD (g/cm2): 0.846] [T-Score: -2.9] [Z-Score: -1.2] [BMD Previous: 0.850] [BMD % Change: -0.5] LT Hip Neck: [BMD (g/cm2): 0.840] [T-Score: -1.4] [Z-Score: 0.1] LT Hip Total: [BMD (g/cm2):0.867] [T-Score:-1.1] [Z-Score: 0.2] [BMD Previous: 0.867] [BMD % Change: 0.0] RT Hip Neck: [BMD (g/cm2):0.822] [T-Score:-1.6] [Z-Score:0.0] RT Hip Total: [BMD (g/cm2):0.872] [T-score:*.1] [Z-Score:0.3] [BMD Previous:0.921] [BMD % Change:-5.0*] *Indicates significant change from prior examination based on 95% confidence level. World Health Organization criteria for BMD interpretation classify patients as Normal (T-score at or above -1.0), Osteopenic (T-score between -1.0 and -2.5) or Osteoporotic (T-score at or below -2.5). LIMITATIONS AND MODIFICATION: None. FRACTURE RISK (FRAX SCORE): The ten year probability of (%): Major Osteoporotic Fracture: [8.3] Hip Fracture: [1.0] IMPRESSION: 1. Osteopenia (Low bone mass). 2. No significant change in bone mineral density since prior examination. 3. See below National Osteoporosis Foundation guidelines on when to potentially initiate pharmacologic therapy. Based on the National Osteoporosis Foundation Guidelines, pharmacologic treatment should be initiated in any of the following, unless clinical conditions suggest otherwise: * Any patient with prior fragility fracture of the hip or vertebrae. A spine fracture indicates 5X risk for subsequent spine fracture and 2X risk for subsequent hip fracture. * Osteoporosis (T-score <-2.5). * Postmenopausal women and men age 50 and older with low bone mass/osteopenia (T-score between -1.0 and -2.5) by DXA and 10-year major osteoporotic fracture greater than 20% or a 10-year probability of hip fracture greater than 3%. These fracture risks are supplied above in the FRAX score, if applicable. * Clinician judgement and/or patient preferences may indicate treatment for people with 10-year fracture probabilities above or below these levels. Dictated by: Dictated on workstation # [id number]
--- NOTE | 2023-03-24 11:59 | Diagnostic Imaging Report ---
INDICATION: Routine screening. COMPARISON: 02/25/2022 and 02/22/2021. TECHNIQUE: 2D and 3D bilateral screening mammography was performed with CAD. FINDINGS: Both breasts are heterogeneously dense, limiting the sensitivity of mammography. Post therapeutic changes in the left breast appear stable. There are benign calcifications in both breasts. No mass or malignant-appearing microcalcifications are seen. The axillae are unremarkable. IMPRESSION: No mammographic features suspicious for malignancy are identified. ACR BI-RADS Category 2: Benign findings. Result letter will be mailed to the patient. Note: At least 10% of breast cancer is not imaged by mammography. Dictated by: Dictated on workstation # [id number]
== END ==
LOC: RAD 09:00
PROVIDERS: ATTEND Internal Medicine Hematology & Oncology
DX: D05.12 Intraductal carcinoma in situ of left breast (principal); M81.0 Age-related osteoporosis without current pathological fracture; M85.80 Other specified disorders of bone density and structure, unspecified site; Z78.0 Asymptomatic menopausal state
CPT/HCPCS: 77063; 77067; 77080